=== PATIENT | female | born 1990 | race Caucasian/White ===

== ENCOUNTER 2022-09-04 15:49 | Outpatient (CLI) | payer OTHER, SELFPAY ==
[2022-09-04 21:45] LABS: Albumin* 4.6 g/dL (3.3-5.0); Chloride* 103 mmol/L (96-114)
[2022-09-04 21:46] LABS: Potassium* 3.9 mmol/L (3.6-5.1); Sodium* 140 mmol/L (135-149)
[2022-09-04 21:48] LABS: Creatinine* 0.7 mg/dL (0.5-1.5); Estimated Glomerular Filt Rate 117 ml/min
[2022-09-04 21:49] LABS: Alanine Aminotransferase* 31 U/L (4-35); Alkaline Phosphatase* 63 U/L (40-150); Aspartate Amino Transferase* 37 U/L (12-35); Blood Urea Nitrogen* 15 mg/dL (5-24); Calcium* 9.4 mg/dL (8.4-10.6); Carbon Dioxide* 28 mmol/L (20-32); Glucose* 90 mg/dL (60-115); Lipase* 119 U/L (23-300); Total Protein* 7.4 g/dL (6.0-8.3)
[2022-09-04 22:11] LABS: C Reactive Protein* < 0.5 mg/dL (0.5-1.0)
[2022-09-04 22:21] LABS: TSH With Reflex to FT4* 0.153 uIU/mL (0.270-4.200)
[2022-09-05 02:37] LABS: Free T4 Free Thyroxine* 1.63 ng/dL (0.70-1.85)
== END 2022-09-04 15:50 | disposition home or self-care (01) ==
PROVIDERS: PCP Physician Assistant Medical; Visit Provider Physician Assistant Medical
DX: K62.5 Hemorrhage of anus and rectum (principal); R10.9 Unspecified abdominal pain
CPT/HCPCS: 80053; 83516; 83690; 84439; 84443; 86140

== ENCOUNTER 2022-09-13 06:06 | Outpatient (CLI) | payer OTHER, SELFPAY | END 2022-09-13 06:07 | disposition home or self-care (01) | PROVIDERS: PCP Physician Assistant Medical; Visit Provider Internal Medicine | DX: R10.9 Unspecified abdominal pain (principal); K63.5 Polyp of colon; R13.10 Dysphagia, unspecified; R19.8 Other specified symptoms and signs involving the digestive system and abdomen | CPT/HCPCS: 43239; 45385; 88305; 88341; 88342; 99153; J2250; J3010 ==

== ENCOUNTER 2022-10-18 09:07 | Outpatient (CLI) | payer OTHER, SELFPAY ==
[2022-10-18 12:43] LABS: Albumin* 4.6 g/dL (3.3-5.0)
[2022-10-18 12:45] LABS: Cholesterol* 131 mg/dL (90-199)
[2022-10-18 12:46] LABS: Alanine Aminotransferase* 24 U/L (4-35); Alkaline Phosphatase* 63 U/L (40-150); Aspartate Amino Transferase* 33 U/L (12-35); Bilirubin Direct* 0.1 mg/dL (0.0-0.5); Bilirubin Total* 1.4 mg/dL (0.1-1.5); HDL Cholesterol* 54 mg/dL (>=50); LDL Cholesterol Calculated 57 mg/dL (<100); Total Protein* 7.1 g/dL (6.0-8.3); Triglycerides* 101 mg/dL (40-149)
[2022-10-18 13:13] LABS: Thyroid Stimulating Hormone* 0.067 uIU/mL (0.270-4.20)
[2022-10-21 08:48] LABS: MMA Vitamin B12 Status 0.13 umol/L (0.00-0.40)
[2022-10-22 20:43] LABS: Intrinsic Factor Blocking Ab Negative (Negative)
== END 2022-10-18 09:08 | disposition home or self-care (01) ==
PROVIDERS: PCP Physician Assistant Medical; Visit Provider Family Medicine
DX: E03.9 Hypothyroidism, unspecified (principal); K29.40 Chronic atrophic gastritis without bleeding
CPT/HCPCS: 80061; 80076; 82607; 84443; 86340

== ENCOUNTER 2023-01-21 13:59 | Outpatient (CLI) | payer OTHER, SELFPAY | END 2023-01-21 14:00 | disposition home or self-care (01) | LOC: NFLDREF 01-23 10:30 | PROVIDERS: PCP Physician Assistant Medical; Visit Provider Physician Assistant Medical | DX: E03.9 Hypothyroidism, unspecified (principal) | CPT/HCPCS: 84439; 84443; 84480; 84481; 84482; 86376; 86800 ==

== ENCOUNTER 2023-03-03 14:11 | Outpatient (REF) | payer OTHER, SELFPAY ==
[2023-03-03 14:38] LABS: Chloride* 105 mmol/L (96-114)
[2023-03-03 14:39] LABS: Albumin* 4.1 g/dL (3.3-5.0); Potassium* 4.4 mmol/L (3.6-5.1); Sodium* 138 mmol/L (135-149)
[2023-03-03 14:41] LABS: Cholesterol* 120 mg/dL (90-199); Creatinine* 0.8 mg/dL (0.5-1.5); Estimated Glomerular Filt Rate 99 ml/min
[2023-03-03 14:42] LABS: Alanine Aminotransferase* 25 U/L (4-35); Alkaline Phosphatase* 41 U/L (40-150); Aspartate Amino Transferase* 33 U/L (12-35); Bilirubin Direct* 0.3 mg/dL (0.0-0.5); Bilirubin Total* 1.6 mg/dL (0.1-1.5); Blood Urea Nitrogen* 9 mg/dL (5-24); Calcium* 8.9 mg/dL (8.4-10.6); Carbon Dioxide* 29 mmol/L (20-32); Glucose* 87 mg/dL (60-115); Total Protein* 6.5 g/dL (6.0-8.3); Triglycerides* 86 mg/dL (40-149)
[2023-03-03 14:43] LABS: HDL Cholesterol* 56 mg/dL (>=50); LDL Cholesterol Calculated 47 mg/dL (<100)
[2023-03-03 14:45] LABS: Hemoglobin A1C* 4.79 % (0-5.6)
[2023-03-03 15:51] LABS: Basophils Absolute Auto 0.02 K/uL (0.00-0.30); Basophils Percent Auto 0.4 % (0.0-3.0); Eosinophils Percent Auto 1.8 % (0.0-7.0); Hematocrit 39.3 % (33.0-51.0); Hemoglobin* 13.4 gm/dL (12.0-16.0); Immature Granulocytes Abs Auto 0.01 K/uL (0.00-0.30); Immature Granulocytes Pct Auto 0.2 %; Lymphocytes Absolute Auto 1.51 K/uL (0.90-2.90); Lymphocytes Percent Auto 26.9 % (20-44); Mean Corpuscular HGB Conc 34 gm/dL (32-36); Mean Corpuscular Hemoglobin 30 pg (26-34); Mean Corpuscular Volume 88 fL (80-100); Monocytes Percent Auto 8.7 % (0.0-11.0); Neutrophils Absolute Auto 3.49 K/uL (1.7-7.0); Platelet Count* 184 K/uL (140-440); RDW Coefficient of Variation % 13.1 % (11.5-15.5); Red Blood Count 4.45 m/uL (4.00-5.20); Slide Review Reflex No; White Blood Count* 5.62 K/uL (4.50-11.00)
== END 2023-03-03 14:12 | disposition home or self-care (01) ==
LOC: NPINS 14:11
PROVIDERS: PCP Physician Assistant Medical
DX: F90.2 Attention-deficit hyperactivity disorder, combined type (principal); F32.9 Major depressive disorder, single episode, unspecified; F15.20 Other stimulant dependence, uncomplicated
CPT/HCPCS: 80048; 80061; 80076; 83036; 85025

== ENCOUNTER 2023-07-11 12:37 | Outpatient (REF) | payer OTHER, SELFPAY ==
[2023-07-11 14:07] LABS: Free T4 Free Thyroxine* 0.82 ng/dL (0.70-1.85)
[2023-07-13 01:48] LABS: Free T3 2.3 pg/mL (2.5-4.3)
[2023-07-13 03:55] LABS: Thyroid Stimulating IgG (TSI) <0.10 IU/L (<=0.54)
== END 2023-07-11 12:38 | disposition home or self-care (01) ==
LOC: NPINS 12:37
PROVIDERS: PCP Physician Assistant Medical
DX: E07.9 Disorder of thyroid, unspecified (principal)
CPT/HCPCS: 84439; 84443; 84445; 84481

== ENCOUNTER 2024-09-10 10:53 | Outpatient (CLI) | payer OTHER, SELFPAY ==
--- OUTSIDE RECORDS SUMMARY | 2024-09-10 10:58 | XMS_ITS | Clinical Summary ---
Author Organization [facility] Address [address] [place] [address] Care Team Providers Care Machine Tool Technician Instructor Name Role Phone Jolie Mandel APRN, YAO Primary Care Provider U batshevaailable Source Comments You are receiving this document as you are listed as the primary care provider,follow-up provider, or the patient has been referred to you for consultation.This is in compliance with the Medicare andMedicaid EHR Incentive Program,which states Providers who transition their patient to another setting of careor provider of care or refers their patient to another provider of care shouldprovide summary care record for each transition of care or referral. [facility] No known active allergies Medications Medication Sig Dispensed Refills Start Date End Date Status levonorgestrel-ethin yl estrad (ALESSE) 0.1-20 MG-MCG tablet Take 1 Tab by mouth daily. Active polyethylene glycol 3350 (GLYCOLAX) powder Take 17 g by mouth daily as needed for Other (constipation). 850 g 3 11/05/2016 Active Additional Information Patient not taking.Reported on 03/12/2023 diphenhydrAMINE (BENADRYL) 25 MG tablet Take 25-50 mg by mouth at bedtime as needed for Sleep. Active traZODone (DESYREL) 50 MG tabletIndications:In somnia Take 50 mg by mouth at bedtime as needed for Sleep. Indications: Trouble Sleeping Active gabapentin (NEURONTIN) 300 MG capsule TAKE 2 CAPS BY MOUTH 4 TIMES A DAY. 720 Cap 06/26/2017 Active Additional Information Patient not taking.Reported on 05/21/2018 levothyroxine (SYNTHROID) 125 MCG tablet TAKE 1 TAB BY MOUTH DAILY. 90 Tab 3 07/22/2017 Active Additional Information Patient not taking.Reported on 03/12/2023 amphetamine-dextroam phetamine (ADDERALL XR) 20 MG 24 hour release capsuleIndications:S ore throat Take 20 mg by mouth daily. Active compounded MAGIC MOUTH WASH (MAGICMOUTHWASH) suspensionIndication s:Sore throat Take 5 mL by mouth two times a day. Gargle twice daily, AM and PM. Compd : Visc Lidocaine 30 ml,Maalox 30ml,Benadryl Elixir 30ml. 240 mL 05/21/2018 Active Additional Information Patient not taking.Reported on 03/12/2023 VRAYLAR 3 MG CAPS Take 1 Capsule by mouth daily. 02/19/2023 Active methylphenidate (RITALIN) 20 MG tablet Take 1 Tablet (20 mg) by mouth three times a day. 02/28/2023 Active liothyronine (CYTOMEL) 5 MCG tablet Take 1 Tablet (5 mcg) by mouth two times a day. 02/25/2023 Active TIROSINT 100 MCG Take 1 Tablet (100 mcg) by mouth daily. 02/28/2023 Active Active Problems Problem Noted Date Diagnosed Date Current every day nicotine vaping 10/18/2020 Insomnia, idiopathic 05/14/2020 Overview (03/12/2023): Uses trazadone Zinc deficiency 02/18/2020 Polysubstance abuse 12/25/2016 Overview (06/25/2017): Polysubstance abuse - adderall, alcohol, marijuana Slow transit constipation 11/05/2016 Moderate episode of recurrent major depressive d isorder 08/13/2016 Anxiety 08/13/2016 Other specified eating disorder 08/13/2016 Overview (06/25/2017): Other Specified Feeding and Eating Disorder - OSFED History of anorexia nervosa 08/13/2016 Overview (03/12/2023): corina 2016 after of second child. Doing well. 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 ADHD (attention deficit hyperactivity disorder) PTSD (post-traumatic stress disorder) Resolved Problems Problem Noted Date Diagnosed Date Resolved Date Nausea 02/19/2017 04/02/2017 Immunizations Name Administration Dates Next Due TDAP (ADACEL) 03/20/2012 Social History Tobacco Use Types Packs/Day Years Used Date Smoking Tobacco: Every Day Cigarettes Smokeless Tobacco: Never Alcohol Use Standard Drinks/Week Comments Yes 0 (1 standard drink = 0.6 oz pur e alcohol) Rarely since June Sex and Gender Information Value Date Recorded Sex Assigned at Not on file Gender Identity Not on file Sexual Orientation Not on file Last Filed Vital Signs Vital Sign Reading Time Taken Comments Blood Pressure 106/71 03/12/2023 9:39 AM CDT Pulse 80 03/12/2023 9:39 AM CDT Temperature 36.7 ??C (98 ??F) 03/12/2023 9:39 AM CDT Respiratory Rate 16 03/12/2023 9:39 AM CDT Oxygen Saturation 97% 03/12/2023 9:39 AM CDT Inhaled Oxygen Concentration - - Weight 53.1 kg (117 lb) 05/21/2018 6:12 PM CDT Height 162.6 cm (5' 4.02) 04/02/2017 3:43 PM CD T Body Mass Index 20.07 04/02/2017 3:43 PM CDT Plan of Treatment Health Maintenance Due Date Last Done Comments Cervical Cancer Screening Due 1989 Hep C Screening (Preventive Services) 1989 IPV (Polio) (4 of 4 - 5-dose series) 02/05/1994 08/07/1993, 08/07/1993, 09/21/1990, Additional history exists Pneumococcal (1 - PCV) 1995 HIV Screening (Preventive Services) 2005 Adult Preventive Visit 2007 HepB (1) 01/21/2008 COVID-19 Vaccine (3 - season) 2024 06/29/2021, 06/08/2021 Influenza (#1) 2024 09/29/2020, 08/03, 08/13/2012, Additional history exists DTaP/Tdap/Td (8 - Tdap) 03/21/2031 03/21/20 21, 12/14/2015, 12/14/2015, Additional history exists Zoster/Shingles (1 of 2) 2039 Hib Completed 08/07/1993, 03/1993, 09/21/1990 MCV4 Completed 06/26/2007 HPV Vaccine Completed 04/06/2008, 02/2008, 09/25/2007, Additional history exists HepA Aged Out No longer eligi ble based on patient's age to complete this topic Infant RSV Aged Out No longer eligi ble based on patient's age to complete this topic Advance Directives * Full Code (Latest Code Status on File) Date Activated Date Inactivated Comments 08/27/2016 2:29 PM 10/20/2016 2:07 PM * Full Code Date Activated Date Inactivated Comments 08/16/2016 10:35 AM 08/27/2016 2:29 PM Care Teams Machine Tool Technician Instructor Relationship Specialty Start Date End Date Jolie Mandel, PROFILE GRINDER, RESIDENTIAL COLLECTIONS PCP - General Nurse Practitioner 08/13/16
--- OUTSIDE RECORDS SUMMARY | 2024-09-10 10:58 | XMS_ITS | Clinical Summary ---
Author Organization [facility] Address [address] [place] [id number] Care Team Providers Care Starting Gate Driver Name Role Phone Unavailable Primary Care Provider Unavailabl e Allergies No known active allergies Medications levonorgestrel (MIRENA) 20 MCG/24HR IUDIndications:En counter for insertion of intrauterine contraceptive device 1 each (20 mcg) by Intrauterine route continuous 10/18/20 18 Active amphetamine-dextr oamphetamine (ADDERALL) 20 MG tablet 10/15/20 18 Active clonazePAM (KLONOPIN) 0.5 MG tablet TAKE 1/2-1 TABLET BY MOUTH DAILY NEEDED FOR ANXIETY/SLEEP 1 12/10/19 19 Active levothyroxine (SYNTHROID/LEVOTH ROID) 125 MCG tabletIndications :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 Provider to review CARDIOVASCULAR SCREENING; LDL GOAL LESS THAN 160 09/02/2010 Smoker 03/16/2009 ADHD (attention deficit hyperactivity disorder) 02/14/2009 Resolved Problems Problem Noted Date Diagnosed Date Resolved Date Polysubstance abuse 12/25/2016 10/18/20 18 History of anorexia nervosa 08/11/2016 12/14/2018 Encounter for triage in patient 01/14/2016 08/12/2016 Hypothyroidism affecting pre gnancy in second trimester 10/25/2015 08/12/2016 Chronic lymphocytic thyroiditis 07/19/2015 07/19/2015 Hypothyroidism affecting pre gnancy in first trimester 07/19/2015 10/25/2015 IUD (intrauterine device) in place 03/18/2013 08/12/2016 Overview (03/18/2013): 04/2012 Surveillance of previously p rescribed intrauterine contraceptive device 06/16/20122015 S/P section 03/26/2012 016 Encounter for supervision of other normal 09/03/2011 08/12/2016 Overview (09/04/2015): Diagnosis updated by automated process. Provider to review and confirm. Contraception 07/04/2011 08/12/2016 [facility] 06/18/2011 04/19/2024 Overview (02/08/2013): x DX V65.8 REPLACED WITH 62038 HEALTH DETENTION (02/08/2013) Anxiety attack 05/30/2011 09/12/2017 Moderate major depression 06/01/2010 Personal history of contrace ption, presenting hazards to health 06/27/2007 08/12/2016 Immunizations Name Administration Dates Next Due HIB (PRP-T) 09/21/1990 HPV 04/06/2008,09/25/2007,06/26/2007 HepB 01/27/2002,04/20/2001,03/18/2001 Historical DTP/aP 09/21/1990 Influenza (IIV3) PF 08/13/2012,09/03/2011,2009 MMR 03/18/2001,05/08/1990 Mantoux Tuberculin Skin Test 08/01/2009,07/11/20 09 Meningococcal ACWY (Menactra??) 06/26/2007 OPV, trivalent, live 08/07/1993,09/21/1990 TD,PF 7+ (Tenivac) 06/29/2003 TDAP Vaccine (Adacel) 03/20/2012 Tdap (Adult) Unspecified Formulation 12/14/2015 Tetramune (DtP/HIB) 08/07/1993 Family History Medical History Relation Comments Substance Abuse Brother 1 Bipolar Disorder Brother 2 Suicide Brother 2 Family History Negative Brother 5 4 Substance Abuse Brother 5 Family History Negative Father Cardiovascular Maternal Grandfather heart attac k and stroke Family History Negative Maternal Grandmother Depression Mother Family History Negative Mother with hea daches -seeing neuro for full for this Family History Negative Paternal Grandfather Family History Negative Paternal Grandmother Family History Negative Sister 1 Breast Cancer No family hx of Cancer - colorectal No family hx of Relation Status Comments Brother 1 Alive Brother 2 Brother 3 Alive Brother 4 Alive Brother 5 Daughter 1 Alive Daughter 2 Alive Father Alive Maternal Grandfather Maternal Grandmother Alive Mother Alive Paternal Grandfather Alive Paternal Grandmother Alive Sister Social History Tobacco Use Types Packs/Day Years Used Date Smoking Tobacco: Every Day Cigarettes 0.5 3 Started: 01/24/2013; Last attempted to quit: 01/25/2016 Smokeless Tobacco: Never Tobacco Cessation:Ready to Q uit: Yes Alcohol Use Standard Drinks/Week Comments No 0 (1 standard drink = 0.6 oz pur e alcohol) Stopped 2 months ago PHQ-2 Answer Date Recorded PHQ-2 Score 1 09/14/2018 Adolescent Education Answer Date Record ed Getting School Help Needed Not on file 08/10 Comments No Sex and Gender Information Value Date Recorded Sex Assigned at Not on file Legal Sex Female 4:05 AM CHANGE MANAGEMENT DIRECTOR Gender Identity Not on file Sexual Orientation Not on file Last Filed Vital Signs Vital Sign Reading Time Taken Comments Blood Pressure 108/74 08/03/2019 11:27 AM CDT Pulse 89 08/03/2019 11:27 AM CDT Temperature 36.6 ??C (97.9 ??F) 08/03/2019 11:27 AM C DT Respiratory Rate 16 08/03/2019 11:27 AM CDT Oxygen Saturation 98% 08/03/2019 11:27 AM CDT Inhaled Oxygen Concentration - - Weight 52.7 kg (116 lb 3.2 oz) 08/03/2019 11:27 AM CDT Height 160 cm (5' 3) 12/14/2018 9:28 AM CHANGE MANAGEMENT DIRECTOR Body Mass Index 20.58 12/14/2018 9:28 AM CHANGE MANAGEMENT DIRECTOR Plan of Treatment Health Maintenance Due Date Last Done Comments ADVANCE CARE PLANNING 1989 Pneumococcal Vaccine: Pediatrics (0 to 5 Years) and At-Risk Patients (6 to 64 Years) (1 of 2 - PCV) 1995 YEARLY PREVENTIVE VISIT 09/14/2019 09/14/20 18, 08/07/2016, 06/05/2011, Additional history exists PHQ-9 02/02/2020 08/03/2019, 12/04, 09/14/2018, Additional history exists ANNUAL REVIEW OF HM ORDERS 08/03/2020 08/03/2019 TSH W/FREE T4 REFLEX 08/03/2020 08/03/2019, 08/03/2019, 12/14/2018, Additional history exists PAP 09/14/2021 09/14/2018, 05/0 11/2015, 03/18/2013, Additional history exists GLUCOSE 08/03/2022 08/03/2019, 05/04, 08/07/2016, Additional history exists COVID-19 Vaccine ( season) 2024 06/29/2021, 06/08/2021 INFLUENZA VACCINE (#1) 2024 0, 09/14/2018 (Declined), 08/13/2012, Additional history exists DTAP/TDAP/TD IMMUNIZATION (7 - Td or Tdap) 03/21/2031 03/21/2021, 12/14/2015, 12/14/2015, Additional history exists RSV VACCINE (1 - 1-dose 75+ series) 01/21/2064 HEPATITIS B IMMUNIZATION Completed 002, 01/27/2002, 01/27/2002, Additional history exists MENINGITIS IMMUNIZATION Completed 06/26/2007 HPV IMMUNIZATION Completed 04/06/2008, , 06/26/2007 HEPATITIS C SCREENING Completed 03/18/2013 HIV SCREENING Completed 07/11/2015, 03/03, 10/08/2012, Additional history exists DEPRESSION ACTION PLAN Completed 8, 09/12/2017, 08/07/2016, Additional history exists RSV MONOCLONAL ANTIBODY Aged Out No l onger eligible based on patient's age to complete this topic Procedures Procedure Name Priority Date/Time Associated Diagnosis Comments COMPREHENSIVE METABOLIC PANEL Routine 08/03/2019 10:16 AM CDT Other fatigue TSH Routine 08/03/2019 10:16 AM CDT 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 Blood specimen (specimen) 08/03/2019 10:16 AM CDT 08/03/2019 10:18 AM CDT Jolie Mandel [facility] F[facility] SPECIALIST LAB - BLOOD ORDERAB LES Final Result [facility] [address] [place], [place] [address] * (ABNORMAL) Comprehensive metabolic panel (08/03/2019 10:16 AM CDT) Sodium 136 133 - 144 mmol/L 08/04/2019 9:[address] [facility] Potassium 4.0 3.4 - 5.3 mmol/L 08/04/2019 9:[address] [facility] Chloride 102 94 - 109 mmol/L 08/04/2019 9:[address] [facility] Carbon Dioxide 26 20 - 32 mmol/L 08/04/2019 9:43 AM [facility] Anion Gap 8 3 - 14 mmol/L 08/04/2019 9:43 AM [facility] Glucose 77 70 - 99 mg/dL 08/04/2019 9:43 AM [facility] Urea Nitrogen 17 7 - 30 mg/dL 08/04/2019 9:43 AM [facility] Creatinine 0.82 0.52 - 1.04 mg/dL 08/04/2019 9:43 AM [facility] GFR Estimate >90 >60 mL/min/{1 .73_m2} 08/04/2019 9:43 AM [facility] Comment: Non GFR Calc Starting 10/20/2018, serum creatinine based estimated GFR (eGFR) will be calculated using the Chronic Kidney Disease Epidemiology Collaboration (CKD-EPI) equation. GFR Estimate If Black >90 >60 mL/min/{1 .73_m2} 08/04/2019 9:43 AM [facility] Comment: GFR Calc Starting 10/20/2018, serum creatinine based estimated GFR (eGFR) will be calculated using the Chronic Kidney Disease Epidemiology Collaboration (CKD-EPI) equation. Calcium 9.0 8.5 - 10.1 mg/dL 08/04/2019 9:43 AM [facility] Bilirubin Total 1.4(H) 0.2 - 1.3 mg/dL 08/04/2019 9:50 AM [facility] Albumin 4.7 3.4 - 5.0 g/dL 08/04/2019 9:50 AM [facility] Protein Total 8.0 6.8 - 8.8 g/dL 08/04/2019 9:50 AM [facility] Alkaline Phosphatase 61 40 - 150 U/L 08/04/2019 9:50 AM [facility] ALT 23 0 - 50 U/L 08/04/2019 9:50 AM [facility] AST 20 0 - 45 U/L 08/04/2019 9:50 AM [facility] Blood specimen (specimen) 08/03/2019 10:16 AM CDT 08/03/2019 10:18 AM CDT Jolie Mandel [facility] [facility] - BLOOD ORDERAB LES Final Result [facility] [address] [place] [address], [facility] [phone] [facility] [address] [place] [address] * Pap imaged thin layer screen reflex to HPV if ASCUS - recommend age 25 - 29 (09/14/2018 9:39 AM CHANGE MANAGEMENT DIRECTOR) PAP MP Issa Report Patient Name: CADENCE MCLAUGHLIN MR#: [id number] Specimen #: [id number] Collected: 09/14/2018 Received: 09/15/2018 Reported: 09/17/2018 10:01 Ordering Phy(s): JOLIE MANDEL For improved result formatting, select 'View Enhanced Report Format' under Linked Documents section. SPECIMEN/STAIN PROCESS: Pap imaged thin layer prep screening (Surepath, FocalPoint with guided screening) ? Pap-Cyto x 1, Pap with reflex to HPV if ASCUS x 1 SOURCE: Cervical, endocervical Pap imaged thin layer prep screening (Surepath, FocalPoint with guided screening) SPECIMEN ADEQUACY: Satisfactory for evaluation. -Transformation zone component present. CYTOLOGIC INTERPRETATION: Negative for intraepithelial lesion or malignancy Electronically signed out by: MIGDALIA Rodríguez (ASCP) Processed and screened at [facility] CLINICAL HISTORY: LMP: 09/13/18 A previous normal pap Date of Last Pap: 03/03/16, Papanicolaou Test Limitations: ??Cervical cytology is a screening test with limited sensitivity; regular screening is critical for cancer prevention; Pap tests are primarily effective for the diagnosis/preventi on of squamous cell carcinoma, not adenocarcinomas or other cancers. TESTING LAB LOCATION: [facility] [address] [place], [place] ??[address] COLLECTION SITE: Client: ??[facility] Location: [facility] (R) [facility] Cytologic material (specimen) 09/14/2018 9:39 AM CHANGE MANAGEMENT DIRECTOR 09/15/2018 10:23 AM CHANGE MANAGEMENT DIRECTOR us Jolie Mandel APRN FARM SPECIALIST LAB - [facility] AL SPECIMEN Final Result [facility] * HIV Antigen Antibody Combo (07/11/2015) HIV Antigen Antibody Combo negative Blood specimen (specimen) us Patient Reported LAB - BLOOD ORDERABLES Final Re sult * Hepatitis C antibody (03/18/2013 2:43 PM CDT) Hepatitis C Antibody Negative [facility] Blood specimen (specimen) 03/18/2013 2:43 PM CDT 03/18/2013 2:44 PM CDT us Soniya Queen MD LAB - BLOOD ORDERABLES Final Res ult [facility] [address] [place] [address] from Last 3 Months or Most Recently Relevant to Health Maintenance Insurance [employer]
--- OUTSIDE RECORDS SUMMARY | 2024-09-10 10:59 | XMS_ITS | Encounter Summary ---
Author Organization [facility] Address [address] [place] [address] Care Team Providers Care Certified Surgical Assistant Name Role Phone Jolie Mandel APRN, CNP Primary Care Provi leon Unavailable Jolie Mandel APRN, CNP Unavailable Un available TequilaJolie hernández APRN, CNP Unavailable Un available Encounter Details Date Type Department Care Team (Late st Contact Info) Description 10/12/2012 [facility] [address] [phone] Soniya Queen MD [address] [place] [address] Social History Tobacco Use Types Packs/Day Years Used Date Smoking Tobacco: Smoker, Current Status Unknown Cigarettes 1 3 Started: 08/03/2008; Last attempted to quit: 08/03/2011 Smokeless Tobacco: Never Alcohol Use Standard Drinks/Week Comments No 0 (1 standard drink = 0.6 oz pur e alcohol) Comments No Sex and Gender Information Value Date Recorded Sex Assigned at Not on file Legal Sex Female 4:05 AM HOIST OPERATOR Gender Identity Not on file Sexual Orientation Not on file documented as of this encounter Plan of Treatment Not on file documented as of this encounter Visit Diagnoses Not on filedocumented in this encounter Care Teams Certified Surgical Assistant Relationship Specialty Start Date End Date Jolie Mandel APRN CNP PCP - General Nurse Practitioner 02/27/17 10/09/23 Jolie Mandel APRN JAVA LEAD ARCHITECT PCP - Assigned PCP 08/18/16 01/05/19 Jolie Mandel APRN JAVA LEAD ARCHITECT Assigned PCP 08/18/16 05/31/22 documented as of this encounter
--- OUTSIDE RECORDS SUMMARY | 2024-09-10 10:59 | XMS_ITS | Encounter Summary ---
Author Organization [facility] Address [address] [place] [address]. [place] [address] Care Team Providers Care Job Captain Name Role Phone Jolie Mandel APRN, CNP Primary Care Provi leon Unavailable Jolie Mandel APRN, CNP Unavailable Un available Jolie Mandle APRN, CNP Unavailable Un available Encounter Details Date Type Department Care Team (Late st Contact Info) Description 04/05/2016 [facility] [address] [phone] Dolly Tsang APRN [address] [id number] Social History Tobacco Use Types Packs/Day Years Used Date Smoking Tobacco: Every Day Cigarettes 0.3 3 Started: 01/24/2013; Last attempted to quit: 01/25/2016 Smokeless Tobacco: Never Comments:stopped 06/10/2015 Alcohol Use Standard Drinks/Week Comments No 0 (1 standard drink = 0.6 oz pur e alcohol) Comments No Sex and Gender Information Value Date Recorded Sex Assigned at Not on file Legal Sex Female 4:05 AM LANDSCAPE AND YARDWORK LABORER Gender Identity Not on file Sexual Orientation Not on file documented as of this encounter Plan of Treatment Not on file documented as of this encounter Visit Diagnoses Not on filedocumented in this encounter Care Teams Job Captain Relationship Specialty Start Date End Date Jolie Mandel APRN CNP PCP - General Nurse Practitioner 02/27/17 10/09/23 Jolie Mandel APRN SERVICE OBSERVER CHIEF PCP - Assigned PCP 08/18/16 01/05/19 Jolie Mandel APRN SERVICE OBSERVER CHIEF Assigned PCP 08/18/16 05/31/22 documented as of this encounter
--- OUTSIDE RECORDS SUMMARY | 2024-09-10 10:59 | XMS_ITS | Encounter Summary ---
Author Organization [facility] Address [address] [place] [address] Care Team Providers Care Rn Postpartum Name Role Phone Jolie Mandel APRN, CNP Primary Care Provi leon Unavailable Jolie Mandel APRN, CNP Unavailable Un available Jolie Mandel APRN, CNP Unavailable Un available Encounter Details Date Type Department Care Team (Late st Contact Info) Description 03/03/2017 [facility] [place] [address] [phone] Edwina Stephenson, ATHLETE MANAGER Social History Tobacco Use Types Packs/Day Years Used Date Smoking Tobacco: Every Day Cigarettes Last attempted to quit: 01/24/2013 Other Smokeless Tobacco: Never Comments:e-cig Alcohol Use Standard Drinks/Week Comments No 0 (1 standard drink = 0.6 oz pur e alcohol) Comments No Sex and Gender Information Value Date Recorded Sex Assigned at Not on file Legal Sex Female 4:05 AM CAM MAKER Gender Identity Not on file Sexual Orientation Not on file documented as of this encounter Plan of Treatment Not on file documented as of this encounter Visit Diagnoses Not on filedocumented in this encounter Additional Health Concerns Assessment Noted Time PHQ-9 Depression Total Score: 21 016 7:22 AM CDT documented as of this encounter Care Teams Rn Postpartum Relationship Specialty Start Date End Date Jolie Mandel APRN CNP PCP - General Nurse Practitioner 02/27/17 10/09/23 oJlie Mandel APRN ENGRAVING PRESS OPERATOR PCP - Assigned PCP 08/18/16 01/05/19 Jolie Mandel APRN ENGRAVING PRESS OPERATOR Assigned PCP 08/18/16 05/31/22 documented as of this encounter
--- OUTSIDE RECORDS SUMMARY | 2024-09-10 10:59 | XMS_ITS | Encounter Summary ---
Author Organization [facility] Address [address] [place] [address] Care Team Providers Care Truck Driver Heavy Name Role Phone Jolie Mandel APRN, CNP Primary Care Provi leon Unavailable Tequila, Jolie Foley APRN MACHINE SPREADER Unavailable Un available Tequila, Jolie Foley APRN MACHINE SPREADER Unavailable Un available Reason for Visit * Reason Onset Date Comments MyChart Communication 05/11/2014 Encounter Details Date Type Department Care Team (Latest Contact Info) Description 05/11/[address] [facility] [id number] [place] [phone] Ida Davila PA-C [id number] [place] [address] MyChart Communication Social History Tobacco Use Types Packs/Day Years Used Date Smoking Tobacco: Every Day Cigarettes 0.5 3 Started: 08/03/2008; Last attempted to quit: 08/03/2011 Smokeless Tobacco: Never Alcohol Use Standard Drinks/Week Comments No 0 (1 standard drink = 0.6 oz pur e alcohol) Comments No Sex and Gender Information Value Date Recorded Sex Assigned at Not on file Legal Sex Female 4:05 AM DAIRY BACTERIOLOGIST Gender Identity Not on file Sexual Orientation Not on file documented as of this encounter Plan of Treatment Not on file documented as of this encounter Visit Diagnoses Not on filedocumented in this encounter Care Teams Truck Driver Heavy Relationship Specialty Start Date End Date Jolie Mandel APRN CNP PCP - General Nurse Practitioner 02/27/17 10/09/23 Jolie Mandel APRN MACHINE SPREADER PCP - Assigned PCP 08/18/16 01/05/19 Jolie Mandel APRN MACHINE SPREADER Assigned PCP 08/18/16 05/31/22 documented as of this encounter
--- OUTSIDE RECORDS SUMMARY | 2024-09-10 10:59 | XMS_ITS | Encounter Summary ---
Author Organization [place] Address [address] [place] [address] Care Team Providers Care Broadcast Operations Technician Name Role Phone Tequila, Jolie Foley APRN PRINTING SHOP SUPERVISOR Primary Care Provi leon Unavailable Tequila, Jolie Foley APRN PRINTING SHOP SUPERVISOR Unavailable Un available Tequila, Jolie Foley APRN PRINTING SHOP SUPERVISOR Unavailable Un available Reason for Visit * Reason Onset Date Comments Refill Request 09/23/2014 amphetamine-dext roamphetamine (ADDERALL) 10 MG tablet Encounter Details Date Type Department Care Team (Late st Contact Info) Description 09/23/2014 MyC Refill [facility] [id number] [place] [id number] Ida Davila PA-C [id number] [place] [address] Refill Request (amphetamine-dextroamp hetam... Social History Tobacco Use Types Packs/Day Years Used Date Smoking Tobacco: Every Day Cigarettes 0.5 3 Started: 08/03/2008; Last attempted to quit: 08/03/2011 Smokeless Tobacco: Never Alcohol Use Standard Drinks/Week Comments No 0 (1 standard drink = 0.6 oz pur e alcohol) Comments No Sex and Gender Information Value Date Recorded Sex Assigned at Not on file Legal Sex Female 4:05 AM TOOL MAKER APPRENTICE Gender Identity Not on file Sexual Orientation Not on file documented as of this encounter Miscellaneous Notes * Telephone Encounter - Karla Tang CMA - 09/23/2014 2:56 PM TOOL MAKER APPRENTICE Lm that rx is ready for pickup Karla Tang CMA MAKER APPRENTICE * Telephone Encounter - Ida Davila PA-C - 09/23/2014 2:17 PM CST prescription approved, please let patient know this medication has been refilled. MAKER APPRENTICE * Telephone Encounter - Reny Gipson - 09/23/2014 10:48 AM [facility] Original authorizing provider: Ida Davila PA-C, RYAN Luis would like a refill of the following medications: amphetamine-dextroamphetamine (ADDERALL) 10 MG tablet [Ida Mitchell PA-C, PA-C] Preferred pharmacy: [facility] [address] [place] [address] [address] Comment: Please renew- last renewal was on 08/22/14. I have my official apt with Dr Moncada in 3 weeks (The psych testing results are being prepared right now and I have a follow up with him in 3 weeks) [facility] [place] and . thanks! MAKER APPRENTICE documented in this encounter Plan of Treatment Not on file documented as of this encounter Visit Diagnoses Diagnosis ADHD (attention deficit hyperactivity disorder) Attention deficit disorder with hyperactivity documented in this encounter Care Teams Broadcast Operations Technician Relationship Specialty Start Date End Date Jolie Mandel APRN CNP PCP - General Nurse Practitioner 02/27/17 10/09/23 Jolie Mandel APRN PRINTING SHOP SUPERVISOR PCP - Assigned PCP 08/18/16 01/05/19 Jolie Mandel APRN CNP Assigned PCP 08/18/16 05/31/22 documented as of this encounter
--- OUTSIDE RECORDS SUMMARY | 2024-09-10 10:59 | XMS_ITS | Encounter Summary ---
Author Organization [place] Address [address] [place] [address] Care Team Providers Care Tube Blower Name Role Phone Jolie Mandel APRN, CNP Primary Care Provi leon Unavailable Jolie Mandel APRN, CNP Unavailable Un available Jolie Mandel APRN, CNP Unavailable Un available Encounter Details Date Type Department Care Team (Late st Contact Info) Description 12/25/2011 [facility] Medical Advice [address] [phone] Soniya Queen MD [address] [place] [id number] Social History Tobacco Use Types Packs/Day Years Used Date Smoking Tobacco: Former Cigarettes Smokeless Tobacco: Never Alcohol Use Standard Drinks/Week Comments No 0 (1 standard drink = 0.6 oz pur e alcohol) Comments Yes Sex and Gender Information Value Date Recorded Sex Assigned at Not on file Legal Sex Female 4:05 AM DIRECTOR OF PATIENT SAFETY Gender Identity Not on file Sexual Orientation Not on file documented as of this encounter Plan of Treatment Not on file documented as of this encounter Visit Diagnoses Not on filedocumented in this encounter Care Teams Tube Blower Relationship Specialty Start Date End Date Jolie Mandel APRN CNP PCP - General Nurse Practitioner 02/27/17 10/09/23 Jolie Mandel APRN CNP PCP - Assigned PCP 08/18/16 01/05/19 Jolie Mandel APRN LEATHER DRIER Assigned PCP 08/18/16 05/31/22 documented as of this encounter
--- OUTSIDE RECORDS SUMMARY | 2024-09-10 10:59 | XMS_ITS | Encounter Summary ---
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
--- OUTSIDE RECORDS SUMMARY | 2024-09-10 10:59 | XMS_ITS | Encounter Summary ---
Author Organization [place] Address [address] [place] [address] Care Team Providers Care Hospital Social Worker Name Role Phone Jolie Mandel APRN, CNP Primary Care Provi leon Unavailable Jolie Mandel APRN, CNP Unavailable Un available TequilaJolie hernández APRN, CNP Unavailable Un available Reason for Visit * Reason Onset Date Comments MyChart Communication 10/12/2012 Encounter Details Date Type Department Care Team (Latest Contact Info) Description 10/12/2012 [facility] [address] [phone] Soniya Queen MD [address] [place] [address] [id number] MyChart Communication Social History Tobacco Use Types [...] on file Legal Sex Female 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
--- OUTSIDE RECORDS SUMMARY | 2024-09-10 10:59 | XMS_ITS | Encounter Summary ---
Author Organization [place] Address [address] [place] [address] Care Team Providers Care Alpine Patroller Name Role Phone Jolie Mandle APRN, CNP Primary Care Provi leon Unavailable Jolie Mandel APRN, CNP Unavailable Un available Jolie Mandel APRN, CNP Unavailable Un available Encounter Details Date Type Department Care Team (Late st Contact Info) Description 12/08/2014 My[facility] Medical Advice [address] [phone] Karla Tang, [facility] Social History Tobacco Use Types Packs/Day Years Used Date Smoking Tobacco: Every Day Cigarettes 0.5 3 Started: 08/03/2008; Last attempted to quit: 08/03/2011 Smokeless Tobacco: Never Alcohol Use Standard Drinks/Week Comments No 0 (1 standard drink = 0.6 oz pur e alcohol) Comments No Sex and Gender Information Value Date Recorded Sex Assigned at Not on file Legal Sex Female 4:05 AM LEAD TELLER Gender Identity Not on file Sexual Orientation Not on file documented as of this encounter Plan of Treatment Not on file documented as of this encounter Visit Diagnoses Not on filedocumented in this encounter Care Teams Alpine Patroller Relationship Specialty Start Date End Date Jolie Mandel APRN CNP PCP - General Nurse Practitioner 02/27/17 10/09/23 Jolie Mandel APRN CNP PCP - Assigned PCP 08/18/16 01/05/19 Jolie Mandel APRN APPLICATION DEVELOPER Assigned PCP 08/18/16 05/31/22 documented as of this encounter
--- OUTSIDE RECORDS SUMMARY | 2024-09-10 10:59 | XMS_ITS | Encounter Summary ---
Author Organization [place] Address [address] [place] [address] Care Team Providers Care Computer Systems Administrator Name Role Phone Jolie Mandel APRN, CNP Primary Care Provi leon Unavailable Jolie Mandel APRN, CNP Unavailable Un available Jolie Mandel APRN, CNP Unavailable Un available Encounter Details Date Type Department Care Team (Late st Contact Info) Description 07/28/2011 [facility] Medical Advice [address] [phone] Soniay Queen MD [address] [place] [id number] Social History Tobacco Use Types Packs/Day Years Used Date Smoking Tobacco: Every Day Cigarettes Smokeless Tobacco: Never Comments:trying to quit, 3-4 cigarettes per day Alcohol Use Standard Drinks/Week Comments Yes 0 (1 standard drink = 0.6 oz pure alcohol) 1-2 drinks 1 day per week, denies any abuse-06/05/11-RW Comments No Sex and Gender Information Value Date Recorded Sex Assigned at Not on file Legal Sex Female 4:05 AM PRODUCT ACCOUNTANT Gender Identity Not on file Sexual Orientation Not on file documented as of this encounter Plan of Treatment Not on file documented as of this encounter Visit Diagnoses Not on filedocumented in this encounter Care Teams Computer Systems Administrator Relationship Specialty Start Date End Date Jolie Mandel APRN CNP PCP - General Nurse Practitioner 02/27/17 10/09/23 Jolie Mandel APRN MANAGER LATIN PCP - Assigned PCP 08/18/16 01/05/19 Jolie Mandel APRN MANAGER LATIN Assigned PCP 08/18/16 05/31/22 documented as of this encounter
--- OUTSIDE RECORDS SUMMARY | 2024-09-10 10:59 | XMS_ITS | Encounter Summary ---
Author Organization [place] Address [address] [place] [address] Care Team Providers Care Face Hardener Name Role Phone Jolie Mandel APRN, CNP Primary Care Provi leon Unavailable Jolie Mandel APRN, CNP Unavailable Un available TequilaJolie hernández APRN, CNP Unavailable Un available Encounter Details Date Type Department Care Team (Late st Contact Info) Description 09/22/2015 My[facility] Medical Advice [address] [address] Dolly Tsang APRN GRAIN SAMPLER [address] [place], [place] [id number] Social History Tobacco Use Types Packs/Day Years Used Date Smoking Tobacco: Former Cigarettes 0.5 3 0 06/07/2012 - 06/07/2015 Smokeless Tobacco: Never Comments:stopped 06/10/2015 Alcohol Use Standard Drinks/Week Comments No 0 (1 standard drink = 0.6 oz pur e alcohol) Comments Yes Sex and Gender Information Value Date Recorded Sex Assigned at Not on file Legal Sex Female 4:05 AM STAFF ANALYST Gender Identity Not on file Sexual Orientation Not on file documented as of this encounter Plan of Treatment Not on file documented as of this encounter Visit Diagnoses Not on filedocumented in this encounter Care Teams Face Hardener Relationship Specialty Start Date End Date Jolie Mandel APRN CNP PCP - General Nurse Practitioner 02/27/17 10/09/23 Jolie Mandel APRN GRAIN SAMPLER PCP - Assigned PCP 08/18/16 01/05/19 Jolie Mandel APRN GRAIN SAMPLER Assigned PCP 08/18/16 05/31/22 documented as of this encounter
--- OUTSIDE RECORDS SUMMARY | 2024-09-10 10:59 | XMS_ITS | Encounter Summary ---
Author Organization [place] Address [address] [place] [address] Care Team Providers Care Computer Operations Technician Name Role Phone Jolie Mandel APRN, CNP Primary Care Provi leon Unavailable Jolie Mandel APRN, CNP Unavailable Un available Jolie Mandel APRN, CNP Unavailable Un available Reason for Visit * Reason Onset Date Comments MyChart Communication 10/31/2016 uti Encounter Details Date Type Department Care Team (Latest Contact Info) Description 10/31/2016 [facility] Medical Advice [address] [address] Jolie Mandel APRN CNP MyChart Communication (uti) Social History Tobacco Use Types Packs/Day Years Used Date Smoking Tobacco: Every Day Cigarettes 1 3 Started: 01/24/2013; Last attempted to quit: 01/25/2016 Smokeless Tobacco: Never Comments:stopped 06/10/2015 Alcohol Use Standard Drinks/Week Comments No 0 (1 standard drink = 0.6 oz pur e alcohol) Comments No Sex and Gender Information Value Date Recorded Sex Assigned at Not on file Legal Sex Female 4:05 AM HOUSEKEEPING ATTENDANT Gender Identity Not on file Sexual Orientation Not on file documented as of this encounter Miscellaneous Notes * Telephone Encounter - Cari Watt RN - 10/31/2016 3:44 PM CST Sent [employer] response, see below Cari Watt RN, BSN Message handled by Nurse Triage. EKEEPING ATTENDANT documented in this encounter Plan of Treatment Not on file documented as of this encounter Visit Diagnoses Not on filedocumented in this encounter Additional Health Concerns Assessment Noted Time PHQ-9 Depression Total Score: 21 016 7:22 AM CDT documented as of this encounter Care Teams Computer Operations Technician Relationship Specialty Start Date End Date Jolie Mandel APRN CNP PCP - General Nurse Practitioner 02/27/17 10/09/23 Jolie Mandel APRN CNP PCP - Assigned PCP 08/18/16 01/05/19 Jolie Mandel APRN CNP Assigned PCP 08/18/16 05/31/22 documented as of this encounter
--- OUTSIDE RECORDS SUMMARY | 2024-09-10 10:59 | XMS_ITS | Encounter Summary ---
Author Organization [place] Address [address] [place] [address] Care Team Providers Care Ict Business Analyst Name Role Phone Tequila, Jolie Foley APRN HAND BANDER Primary Care Provi leon Unavailable Tequila, Jolie Foley APRN HAND BANDER Unavailable Un available Tequila, Jolie Foley APRN HAND BANDER Unavailable Un available Reason for Visit * Reason Onset Date Comments Results 06/01/2011 Lab Results Encounter Details Date Type Department Care Team (Late st Contact Info) Description 06/01/[address] [phone] Soniya Queen MD [address] [place] [address] [phone] Results (Lab Results ) Social History Tobacco Use Types Packs/Day Years Used Date Smoking Tobacco: Every Day Cigarettes Smokeless Tobacco: Never Comments:trying to quit, 3-4 cigarettes per day Alcohol Use Standard Drinks/Week Comments Yes 0 (1 standard drink = 0.6 oz pur e alcohol) Comments No Sex and Gender Information Value Date Recorded Sex Assigned at Not on file Legal Sex Female 4:05 AM STATIONARY ENGINEER APPRENTICE Gender Identity Not on file Sexual Orientation Not on file documented as of this encounter Miscellaneous Notes * Telephone Encounter - Letitia Cason - 06/04/2011 10:05 AM CDT LVM @ [phone] for pt to call back. Test results are negative but what was the test for? Irregular bleeding? Missed cycle? Date of last period? Need to be sure pt did not test too soon. Letitia Cason RN. * Telephone Encounter - Topher Princea - 06/01/2011 12:07 PM CDT The patient would like to know if the test results are in and if they are would like a call back with the results. Please call to discuss. Thank you. documented in this encounter Plan of Treatment Not on file documented as of this encounter Visit Diagnoses Not on filedocumented in this encounter Care Teams Ict Business Analyst Relationship Specialty Start Date End Date Jolie Mandel APRN CNP PCP - General Nurse Practitioner 02/27/17 10/09/23 Jolie Mandel APRN HAND BANDER PCP - Assigned PCP 08/18/16 01/05/19 Jolie Mandel APRN CNP Assigned PCP 08/18/16 05/31/22 documented as of this encounter
--- OUTSIDE RECORDS SUMMARY | 2024-09-10 10:59 | XMS_ITS | Encounter Summary ---
Author Organization [place] Address [address] [place] [address] Care Team Providers Care Inspector Casing Name Role Phone Jolie Mandel APRN, CNP Primary Care Provi leon Unavailable Jolie Mandel APRN, CNP Unavailable Un available Jolie Mandel APRN, CNP Unavailable Un available Encounter Details Date Type Department Care Team (Late st Contact Info) Description 01/08/2013 My[facility] Medical Advice [address] [phone] Soniya Queen MD [address] [place] [address] Social History Tobacco Use Types Packs/Day Years Used Date Smoking Tobacco: Every Day Cigarettes 1 3 Started: 08/03/2008; Last attempted to quit: 08/03/2011 Smokeless Tobacco: Never Alcohol Use Standard Drinks/Week Comments No 0 (1 standard drink = 0.6 oz pur e alcohol) Comments No Sex and Gender Information Value Date Recorded Sex Assigned at Not on file 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
--- OUTSIDE RECORDS SUMMARY | 2024-09-10 10:59 | XMS_ITS | Encounter Summary ---
Author Organization [place] Address [address] [place] [address] Care Team Providers Care Stock Puller Name Role Phone Jolie Mandel APRN, CNP Primary Care Provi leon Unavailable Jolie Mandel APRN, CNP Unavailable Un available Jolie Mandel APRN, CNP Unavailable Un available Encounter Details Date Type Department Care Team (Late st Contact Info) Description 06/10/2011 [facility] Medical Advice [address] [phone] Soniya Queen MD [address] [place] [address] Social History Tobacco Use Types Packs/Day Years [...] on file Legal Sex Female 4:05 AM SOFTWARE DEVELOPMENT TEST ENGINEER Gender Identity Not on file Sexual Orientation Not on file documented as of this encounter Plan of Treatment Not on file documented as of this encounter Visit Diagnoses Not on filedocumented in this encounter Care Teams Stock Puller Relationship Specialty Start Date End Date Jolie Mandel APRN CNP PCP - General Nurse Practitioner 02/27/17 10/09/23 Jolie Mandel APRN QUARTZ MOUNTER PCP - Assigned PCP 08/18/16 01/05/19 Jolie Mandel APRN QUARTZ MOUNTER Assigned PCP 08/18/16 05/31/22 documented as of this encounter
--- OUTSIDE RECORDS SUMMARY | 2024-09-10 10:59 | XMS_ITS | Encounter Summary ---
Author Organization [place] Address [address] [place] [address] Care Team Providers Care Mounter Saxophones Name Role Phone Jolie Mandel APRN, CNP Primary Care Provi leon Unavailable Jolie Mandel APRN, CNP Unavailable Un available Jolie Mandel APRN, CNP Unavailable Un available Encounter Details Date Type Department Care Team (Late st Contact Info) Description 02/08/2013 [facility] Medical [address] [address] [facility] Social History Tobacco Use Types Packs/Day Years Used Date Smoking Tobacco: Every Day Cigarettes 1 3 Started: 08/03/2008; Last attempted to quit: 08/03/2011 Smokeless Tobacco: Never Alcohol Use Standard Drinks/Week Comments No 0 (1 standard drink = 0.6 oz pur e alcohol) Comments No Sex and Gender Information Value Date Recorded Sex Assigned at Not on file Legal Sex Female 4:05 AM WAITER/WAITRESS HEAD Gender Identity Not on file Sexual Orientation Not on file documented as of this encounter Plan of Treatment Not on file documented as of this encounter Visit Diagnoses Not on filedocumented in this encounter Care Teams Mounter Saxophones Relationship Specialty Start Date End Date Jolie Mandel APRN CNP PCP - General Nurse Practitioner 02/27/17 10/09/23 Jolie Mandel APRN CNP PCP - Assigned PCP 08/18/16 01/05/19 Jolie Mandel APRN LABORATORY EQUIPMENT INSTALLER Assigned PCP 08/18/16 05/31/22 documented as of this encounter
--- OUTSIDE RECORDS SUMMARY | 2024-09-10 10:59 | XMS_ITS | Referral Summary ---
Author Organization [facility] Address [address] [place] [address] Care Team Providers Care Auto Body Man Name Role Phone Unavailable Primary Care Provider [...] review and confirm. 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 Gender Identity Not on file Sexual Orientation [...] 160 cm (5' 3) 12/14/2018 9:28 AM DIAL BUFFER Body Mass Index 20.58 12/14/2018 9:28 AM DIAL BUFFER Plan of Treatment Not on file Procedures Procedure Name Priority Date/Time Associated Diagnosis Comments COMPREHENSIVE METABOLIC PANEL Routine 08/03/2019 10:16 AM CDT Other fatigue TSH Routine 08/03/2019 10:16 AM CDT 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 PAP IMAGED THIN LAYER SCREEN Routine 09/14/2018 9:39 AM DIAL BUFFER Routine general medical examination at a health care facility HIV ANTIGEN ANTIBODY COMBO Routine 07/11/2015 HEPATITIS C ANTIBODY Routine 03/18/2013 2:43 PM CDT Screening for STD (sexually transmitted disease) from Last 3 Months or Most Recently Relevant to Health Maintenance Results * (ABNORMAL) TSH (08/03/2019 10:16 AM CDT) TSH 0.09(L) 0.40 - 4.00 mU/L 08/04/2019 9:57 AM CDT [facility] Blood specimen (specimen) 08/03/2019 10:16 AM CDT 08/03/2019 10:18 AM CDT us Jolie Mandel FOOD AND NUTRITION TEACHER [facility] - BLOOD ORDERAB LES Final Result [facility] [address] [place] [address] * (ABNORMAL) Comprehensive metabolic panel (08/03/2019 10:16 AM CDT) Sodium 136 133 - 144 mmol/L 08/04/2019 9:22 AM CDT [facility] Potassium 4.0 3.4 - 5.3 mmol/L 08/04/2019 9:22 AM CDT [facility] Chloride 102 94 - 109 mmol/L 08/04/2019 9:22 AM CDT [facility] Carbon Dioxide 26 20 - 32 mmol/L 08/04/2019 9:43 AM CDT [facility] Anion Gap 8 3 - 14 mmol/L 08/04/2019 9:43 AM CDT [facility] Glucose 77 70 - 99 mg/dL 08/04/2019 9:43 AM CDT [facility] Urea Nitrogen 17 7 - 30 mg/dL 08/04/2019 9:43 AM CDT [facility] Creatinine 0.82 0.52 - 1.04 mg/dL 08/04/2019 9:43 AM CDT [facility] GFR Estimate >90 >60 mL/min/{1 .73_m2} 08/04/2019 9:43 AM CDT [facility] Comment: Non GFR Calc Starting 10/20/2018, serum creatinine based estimated GFR (eGFR) will be calculated using the Chronic Kidney Disease Epidemiology Collaboration (CKD-EPI) equation. GFR Estimate If Black >90 >60 mL/min/{1 .73_m2} 08/04/2019 9:43 AM CDT [facility] Comment: GFR Calc Starting 10/20/2018, serum creatinine based estimated GFR (eGFR) will be calculated using the Chronic Kidney Disease Epidemiology Collaboration (CKD-EPI) equation. Calcium 9.0 8.5 - 10.1 mg/dL 08/04/2019 9:43 AM CDT [facility] Bilirubin Total 1.4(H) 0.2 - 1.3 mg/dL 08/04/2019 9:50 AM [facility] Albumin 4.7 3.4 - 5.0 g/dL 08/04/2019 9:50 AM [facility] Protein Total 8.0 6.8 - 8.8 g/dL 08/04/2019 9:50 AM [facility] Alkaline Phosphatase 61 40 - 150 U/L 08/04/2019 9:50 AM [facility] ALT 23 0 - 50 U/L 08/04/2019 9:50 AM [facility] AST 20 0 - 45 U/L 08/04/2019 9:50 AM [facility] Blood specimen (specimen) 08/03/2019 10:16 AM CDT 08/03/2019 10:18 AM CDT us Jolie Mandel FOOD AND NUTRITION TEACHER [facility] - BLOOD ORDERAB LES Final Result [facility] [address] [id number], [facility] [phone] [facility] [address] [place] [address] * Pap imaged thin layer screen reflex to HPV if ASCUS - recommend age 25 - 29 (09/14/2018 9:39 AM DIAL BUFFER) PAP MP [facility] Report Patient Name: CADENCE MCLAUGHLIN MR#: [id number] Specimen #: [id number] Collected: 09/14/2018 Received: 09/15/2018 Reported: 09/17/2018 10:01 [...] MIGDALIA Rodríguez (ASCP) Processed and screened at [facility], [facility] CLINICAL HISTORY: LMP: 09/13/18 A previous normal pap Date of Last Pap: 03/03/16, Papanicolaou Test Limitations: ??Cervical cytology is a screening test with limited sensitivity; regular screening is critical for cancer prevention; Pap tests are primarily effective for the diagnosis/preventi on of squamous cell carcinoma, not adenocarcinomas or other cancers. TESTING LAB LOCATION: [address] ??[id number] COLLECTION SITE: Client: ??[facility] Location: KEISHA MORALES (R) Cytologic material (specimen) 09/14/2018 9:39 AM DIAL BUFFER 09/15/2018 10:23 AM DIAL BUFFER us Joliejesus Mandel APRN [facility] - [facility] AL SPECIMEN Final Result [facility] * HIV Antigen Antibody Combo (07/11/2015) HIV Antigen Antibody Combo negative Blood specimen (specimen) us Patient Reported LAB - BLOOD ORDERABLES Final Re sult * Hepatitis C antibody (03/18/2013 2:43 PM CDT) Hepatitis C Antibody Negative [facility]G [facility] Blood specimen (specimen) 03/18/2013 2:43 PM CDT 03/18/2013 2:44 PM CDT us Soniya Queen MD LAB - BLOOD ORDERABLES Final Res ult [facility] [address] [place] [address] from Last 3 Months or Most Recently Relevant to Health Maintenance Insurance [facility] [employer]
--- OUTSIDE RECORDS SUMMARY | 2024-09-10 10:59 | XMS_ITS | Encounter Summary ---
Author Organization [facility] Address [address] [place] [id number] Care Team Providers Care Strike Planning Applications Name Role Phone Jolie Mandel APRN, CNP Primary Care Provi leon Unavailable Jolie Mandel APRN, CNP Unavailable Un available Jolie Mandel APRN, CNP Unavailable Un available Encounter Details Date Type Department Care Team (Late st Contact Info) Description 08/18/2013 [facility] Medical Advice [address] [id number] Reny Gipson Social History Tobacco Use Types Packs/Day Years Used Date Smoking Tobacco: Every Day Cigarettes 0.5 3 Started: 08/03/2008; Last attempted to quit: 08/03/2011 Smokeless Tobacco: Never Alcohol Use Standard Drinks/Week Comments No 0 (1 standard drink = 0.6 oz pur e alcohol) Comments No Sex and Gender Information Value Date Recorded Sex Assigned at Not on file 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
[2024-09-10 15:10] LABS: Chlamydia DNA Amplified* NOT DETECTED (No Detected); GC DNA Amplified* NOT DETECTED (No Detected)
== END 2024-09-10 10:54 | disposition home or self-care (01) ==
LOC: NFLDREF 10:54
PROVIDERS: PCP Physician Assistant Medical; Visit Provider Obstetrics & Gynecology
DX: Z11.3 Encounter for screening for infections with a predominantly sexual mode of transmission (principal)
CPT/HCPCS: 87491; 87591

== ENCOUNTER 2024-10-24 17:44 | Emergency (ER) | payer OTHER, SELFPAY ==
[2024-10-24 17:57] VITALS: BP 119/86; PULSE 90; RESP 18; TEMP 37.2; O2SAT 98; BMI 21.3
--- NOTE | 2024-10-24 18:21 | ED.GENADULT ---
HPI - General Adult General Chief complaint: Urogenital Problems, Female Stated complaint: Abdomen pain, dizzyness Time Seen by Provider: 10/24/24 17:59 History of Present Illness HPI narrative: This 34-year-old female comes in reporting lower abdominal plain that has been present over the past 4 5 days and has been worsening day by day. She states that she had an IUD placed about 6 weeks ago and when this was done previously it took a few months for her menstrual cycle to eventually discontinue. She had been thinking that her abdominal pain was related to that. She went into urgent care today because of worsening pain. Urinalysis was obtained and did not show any sign of infection but results were somewhat skewed with taking azo. She does not report any dysuria symptoms. She has not had any fevers or loss of appetite. Related Data Home Medications ?Medication ?Instructions ?Recorded ?Confirmed naltrexone 1.5 mg capsule mg PO BID 03/26/24 10/08/24 aripiprazole 10 mg tablet 5 mg PO DAILY 09/10/24 10/08/24 methylphenidate HCl 20 mg tablet 20 mg PO QDAY 09/10/24 10/08/24 methylphenidate HCl 40 mg biphasic 40 mg PO QAM 09/10/24 10/08/24 50-50 capsule,extended release thyroid (pork) 90 mg tablet 90 mg PO QDAY 09/10/24 10/08/24 ([place] Thyroid) levonorgestrel (Mirena) 1 device intrauterine ONCE 10/08/24 10/08/24 Previous Rx's ?Medication ?Instructions ?Recorded fluconazole 150 mg tablet 150 mg PO Q3D 2 doses #2 tabs 10/24/24 Allergies Allergy/AdvReac Type Severity Reaction Status Date / Time No Known Drug Allergies Allergy Verified 10/24/24 09:19 Review of Systems Status of ROS: Reports: 10 or more systems reviewed and unremarkable except as noted in History and below Narrative: Constitutional: No fevers, no weight gain or loss. Eyes: No discharge. No vision changes. HENT: No congestion, no sore throat, no ear pain. Cardiovascular: No chest pain, no palpitations. Respiratory: No shortness of breath, no wheezes, no cough. Gastrointestinal: No vomiting, no diarrhea. Abdominal pain as described above. Genitourinary: No dysuria, no hematuria. Musculoskeletal: Normal range of motion. Skin: No rashes, no pruritis. Neurological: No dizziness, weakness, sensory change, speech change. Endo/Heme/Allergies: No bruising or bleeding. No polydipsia. Pysch: no suicidality, no anxiety, no insomnia. All other systems reviewed and are negative. 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 What is your current living situation?: I presently have a place to live Problems where you live: no known problems In the past 12 months, utilities in danger of being shut off: no In past 12 months, lack of transportation kept you from medical appts, meetings, work, or getting things needed for daily living: no In the past 12 mos, have been you worried that your food would run out before you had money to buy more?: never true In the past 12 mos, the food you bought just didn't last and you didn't have money to buy more?: never true Highest level of school completed/degree received: Bachelor's degree Smoking Status: Never smoker Do you use any of these nicotine containing products: Vaping Products Second hand tobacco smoke exposure: No How often do you have a drink containing alcohol: never How often do you have six or more drinks on one occasion: Never AUDIT-C Alcohol total score: 0 Non-prescribed substance use: denies use How often does anyone, including family, friends and others, physically hurt you: never How often does anyone, including family, friends and others, insult or talk down to you: never How often does anyone, including family, friends and others, threaten you with harm: never How often does anyone, including family, friends and others, scream or curse at you: never service: No Exam Narrative: Exam Narrative: Constitutional: Well-developed, well-nourished, no acute distress. HEENT: Normocephalic, atraumatic. Neck: Normal range of motion. Nontender. Supple. Heart: Regular. No murmurs. Normal rate. Intact distal pulses. Lungs: Clear to auscultation. No chest discomfort. No wheezes, rhonchi, or rales. Abdomen: Normal bowel sounds. No rebound tenderness. Pain is localized across the lower abdomen just above the pubic bone bilaterally. Genitalia: Deferred. Back: No midline tenderness. Normal range of motion. Extremities: Normal range of motion. No injury. Skin: Intact. No rash. Warm. No erythema or pallor. Neurologic: No altered sensation. No weakness. Alert and oriented. Psychiatric: No suicidality. No anxiety or depression. No insomnia. Nursing notes and vitals signs are reviewed. Const: Vital Signs, click to edit/add: Vital Signs - 24 hr 10/24/24 17:57 Temperature 99 F Pulse Rate [Pulse Oximeter] 90 Respiratory Rate 18 Blood Pressure [Le ft Upper Arm] 119/86 Pulse Oximetry 98 Oxygen Delivery Me thod Room Air Course Vital Signs Vital signs: Initial Vital Signs Temperature 99 F 10/24/24 17:57 Temperature Source Temporal Artery Scan 10/24/24 17:57 Pulse Rate 90 10/24/24 17:57 Pulse Rhythm Regular 10/24/24 17:57 Respiratory Rate 18 10/24/24 17:57 Blood Pressure 119/86 10/24/24 17:57 Blood Pressure Mean 97 10/24/24 17:57 Blood Pressure Position Supine 10/24/24 17:57 Pulse Oximetry 98 10/24/24 17:57 Oxygen Delivery Method Room Air 10/24/24 17:57 Vital Signs Temperature 99 F 10/24/24 17:57 Pulse Rate 90 10/24/24 17:57 Respiratory Rate 18 10/24/24 17:57 Blood Pressure 119/86 10/24/24 17:57 Pulse Oximetry 98 10/24/24 17:57 Oxygen Delivery Method Room Air 10/24/24 17:57 Temperature 99 F 10/24/24 17:57 Pulse Rate 90 10/24/24 17:57 Respiratory Rate 18 10/24/24 17:57 Blood Pressure 119/86 10/24/24 17:57 Pulse Oximetry 98 10/24/24 17:57 Oxygen Delivery Method Room Air 10/24/24 17:57 Medications Administered Medications: Generic Name Dose Route Start Last Admin Trade Name Freq PRN Reason Stop Dose Admin Ketamine HCl 20 mg/ Sodium 100.2 mls @ 300.6 mls/hr 10/24/24 19:40 10/24/24 20:21 Chloride IVPB 10/24/24 19:41 Infused ONCE ONE Infusion Discontinued Medications Generic Name Dose Route Start Last Admin Trade Name Freq PRN Reason Stop Dose Admin Sodium Chloride 500 mls @ 500 mls/hr 10/24/24 18:18 10/24/24 20:20 0.9 % Sodium Chloride 500 Ml IV 10/24/24 19:17 Infused .Q1H ONE Infusion Ketorolac Tromethamine 15 mg 10/24/24 18:21 10/24/24 18:43 Ketorolac 30 Mg/Ml Inj IVP 10/24/24 18:22 15 mg ONCE ONE Administration Ondansetron HCl 4 mg 10/24/24 18:18 10/24/24 18:42 Ondansetron 2 Mg/Ml Inj IVP 10/24/24 18:19 4 mg ONCE ONE Administration Medical Decision Making MDM Narrative Medical decision making narrative: This patient comes in with lower abdominal pain as described above. She arrives with normal vital signs and her abdominal exam is otherwise unremarkable except for pain in the lower abdomen. She does not have any rebound tenderness and bowel sounds are normal. An ultrasound of the pelvis is obtained with trans vaginal abuse showing normal findings. The patient did receive an IV dose of Toradol and Zofran and states that this medicine did not seem to help her much. She then received ketamine 20 mg infused over 20 minutes time. This did cause her pain to go away but now she is reporting some mild throbbing. I advised the patient to follow-up with OBGYN clinic for ongoing diagnosis and management. We did have a discussion about endometriosis which a couple providers have stated that her symptoms may be related to that. I did provide [facility] prescription for [place]. Lab Data Labs: Lab Results 10/24/24 Range/Units 18:30 WBC 6.90 (4.50-11.00) K/uL RBC 4.45 (4.00-5.20) m/uL Hgb 13.6 (12.0-16.0) gm/dL Hct 39.5 (33.0-51.0) % MCV 89 (80-100) fL MCH 31 (26-34) pg MCHC 34 (32-36) gm/dL RDW Coeff of Gavino 12.8 (11.5-15.5) % Plt Count 238 (140-440) K/uL Neut % (Auto) 49.9 (42.0-72.0) % Lymph % (Auto) 37.5 (20-44) % [place] % (Auto) 9.7 (0.0-11.0) % Eos % (Auto) 2.2 (0.0-7.0) % Baso % (Auto) 0.6 (0.0-3.0) % Neut # (Auto) 3.44 (1.7-7.0) K/uL Lymph # (Auto) 2.59 (0.90-2.90) K/uL [place] # (Auto) 0.70 (0.00-0.90) K/UL Eos # (Auto) 0.15 (0.00-0.50) K/uL Baso # (Auto) 0.04 (0.00-0.30) K/uL Abs Immat Gran (auto) 0.01 (0.00-0.30) K/uL Imm/Tot Granulo (auto) 0.1 % Sodium 138 (135-149) mmol/L Potassium 3.9 (3.6-5.1) mmol/L Chloride 105 (96-114) mmol/L Carbon Dioxide 25 (20-32) mmol/L Anion Gap 8 (7-15) mEq/L BUN 13 (5-24) mg/dL Creatinine 1.0 (0.5-1.5) mg/dL Estimated Creat Clear 64.95 Estimated GFR 75 ml/min Glucose 89 (60-115) mg/dL Calcium 8.8 (8.4-10.6) mg/dL Imaging Data US - abdomen: Radiologist's impression: Intrauterine device which appears to be in appropriate position. Otherwise, unremarkable pelvic ultrasound with incidental tiny mildly complex 1.4 centimeter left ovarian cyst with thin septa. Discharge Plan Discharge Clinical Impression: Abdominal pain Patient Disposition: Home w/ Parent or Adult Condition: Stable Additional Instructions: Take medication as needed and indicated. Follow-up with OBGYN clinic for ongoing diagnosis and management. Return if worsening. Prescriptions: No Action aripiprazole 10 mg tablet 5 mg PO DAILY methylphenidate HCl 20 mg tablet 20 mg PO QDAY naltrexone 1.5 mg capsule PO BID thyroid (pork) [[place] Thyroid] 90 mg tablet 90 mg PO QDAY methylphenidate HCl 40 mg capsule,ER biphasic 50-50 40 mg PO QAM Mirena 21 mcg/24hr (up to 8 yrs) 52 mg intrauterine device 1 device intrauterine ONCE Rx Instructions: as a single dose fluconazole 150 mg tablet 150 mg PO Q3D Qty: 2 0RF Rx Instructions: may repeat second dose 72 hrs after first dose if symptoms persist Follow Up/Referrals: Edu Fairchild MD [Primary Care Provider] - Stand Alone Forms: MyHealth Info Instructions
--- NOTE | 2024-10-24 18:23 | CRLHL7_ITS ---
For Patients: As a result of the Century Cures Act, medical imaging exams and procedure reports are released immediately into your electronic medical record. You may view this report before your referring provider. If you have questions, please contact your health care provider. INDICATION: Lower abdominal pain. TECHNIQUE: Ultrasound pelvis transabdominal and transvaginal for better assessment or to better visualize the endometrium. Real-time sonographic images with spectral and color Doppler imaging of the ovaries were obtained. COMPARISON: None. FINDINGS: Uterus: 8.8 x 3.4 x 4.9 cm. Normal echotexture of the myometrium. No masses. Endometrium: Transvaginal imaging was performed to better evaluate the endometrium. Endometrial thickness measures 6 mm. No sign of endometrial mass or fluid. Intrauterine device which appears to be in appropriate position. Right ovary 2.8 x 2.9 x 2.5 centimeters. Left ovary 3.8 x 2.8 x 2.7 centimeters. Incidental tiny mildly complex 1.4 centimeter left ovarian cyst with thin septum. No ovarian or adnexal masses. Normal arterial and venous blood flow is demonstrated in both ovaries. Cul-de-sac: No significant free fluid. IMPRESSION: Intrauterine device which appears to be in appropriate position. Otherwise, unremarkable pelvic ultrasound with incidental tiny mildly complex 1.4 centimeter left ovarian cyst with thin septa. Dictated by Lan Davis MD @ 10/24/2024 8:05:45 PM (Electronically Signed)
[2024-10-24] MEDS: 0.9 % SODIUM CHLORIDE 500 ML 500 ML IV (18:37)
[2024-10-24 18:42] LABS: Basophils Absolute Auto 0.04 K/uL (0.00-0.30); Basophils Percent Auto 0.6 % (0.0-3.0); Eosinophils Absolute Auto 0.15 K/uL (0.00-0.50); Eosinophils Percent Auto 2.2 % (0.0-7.0); Hematocrit 39.5 % (33.0-51.0); Hemoglobin* 13.6 gm/dL (12.0-16.0); Immature Granulocytes Abs Auto 0.01 K/uL (0.00-0.30); Immature Granulocytes Pct Auto 0.1 %; Lymphocytes Absolute Auto 2.59 K/uL (0.90-2.90); Lymphocytes Percent Auto 37.5 % (20-44); Mean Corpuscular HGB Conc 34 gm/dL (32-36); Mean Corpuscular Hemoglobin 31 pg (26-34); Mean Corpuscular Volume 89 fL (80-100); Monocytes Percent Auto 9.7 % (0.0-11.0); Neutrophils Absolute Auto 3.44 K/uL (1.7-7.0); Neutrophils Percent Auto 49.9 % (42.0-72.0); Platelet Count* 238 K/uL (140-440); RDW Coefficient of Variation % 12.8 % (11.5-15.5); Red Blood Count 4.45 m/uL (4.00-5.20)
[2024-10-24] MEDS: ONDANSETRON 2 MG/ML inj 4 MG IVP (18:42)
[2024-10-24] MEDS: KETOROLAC 30 MG/ML inj 15 MG IVP (18:43)
[2024-10-24 18:44] LABS: Slide Review Reflex No
[2024-10-24 18:53] LABS: Chloride* 105 mmol/L (96-114); Potassium* 3.9 mmol/L (3.6-5.1); Sodium* 138 mmol/L (135-149)
[2024-10-24 18:56] LABS: Anion Gap 8 mEq/L (7-15); Blood Urea Nitrogen* 13 mg/dL (5-24); Carbon Dioxide* 25 mmol/L (20-32); Est. Creatinine Clearance* 64.95; Estimated Glomerular Filt Rate 75 ml/min
[2024-10-24 18:57] LABS: Calcium* 8.8 mg/dL (8.4-10.6); Glucose* 89 mg/dL (60-115)
[2024-10-24] MEDS: KETAMINE HCL 20 MG in 0.9 % SODIUM CHLORIDE 100 ml 100 ML 300.6 MG IVPB (20:03)
== END 2024-10-24 20:28 | disposition home or self-care (01) ==
PROVIDERS: Emergency Provider Emergency Medicine Emergency Medical Services; PCP Family Medicine
DX: R10.9 Unspecified abdominal pain (principal); R30.0 Dysuria; B37.31 Acute candidiasis of vulva and vagina
CPT/HCPCS: 36415; 76830; 80048; 85025; 87086; 93976; 96365; 96375; 99284; J1885; J2405; J3490; J7030

== ENCOUNTER 2025-03-24 14:51 | Emergency (ER) | payer OTHER, SELFPAY ==
--- OUTSIDE RECORDS SUMMARY | 2025-02-24 15:44 | XMS_ITS | Encounter Summary ---
Author Organization [facility] Address [address] [place] [address] Care Team Providers Care Well Flow Operator Name Role Phone No Ref-Primary, Physician Primary Care Provider Hemant Patel MD Unavailable Reason for Referral * Diagnostic Imaging Ultrasound (Routine) - Pending Review Specialty Diagnoses / Procedures Referred By Contac t Referred To Contact Radiology. 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 Yes 12/08/2024 Within the past 12 months, h ave you been hit, slapped, kicked or otherwise physically hurt by someone? No 12/08/2024 Within the past 12 months, h ave you been humiliated or emotionally abused in other ways by your partner or ex-partner? No 12/08/2024 Comments No Sex and Gender Information Value Date Recorded Sex Assigned at Female 12/03/2024 9:09 AM TREE AND SHRUB WORKER Legal Sex Female 4:05 AM TREE AND SHRUB WORKER Gender Identity Female 12/03/2024 9:09 AM TREE AND SHRUB WORKER Sexual Orientation Straight 12/03/2024 9: 09 AM TREE AND SHRUB WORKER documented as of this encounter Medications at Time of Discharge amphetamine-dextr oamphetamine (ADDERALL) 20 MG tabletIndications :Adult ADHD Take 1 tablet (20 mg) by mouth daily. 30 tablet 03/07/2025 amphetamine-dextr oamphetamine (ADDERALL) 20 MG tabletIndications :Adult ADHD Take 1 tablet (20 mg) by mouth daily. 30 tablet 12/15/2024 ARIPiprazole (ABILIFY) 5 MG tabletIndications :Generalized anxiety disorder,Moderate recurrent major depression (H) Take 1 tablet (5 mg) by mouth daily. 90 tablet 3 12/08/2024 ARMOUR THYROID 120 MG tablet 12/07/2024 cetirizine (ZYRTEC) 10 MG tablet Take 1 tablet by mouth 2 times daily. 12/07/2024 famotidine (PEPCID) 20 MG tablet Take 20 mg by mouth 2 times daily. 12/07/2024 levothyroxine (SYNTHROID/LEVOTH ROID) 125 MCG tabletIndications :Hypothyroidism due to Timur's thyroiditis Take 1 tablet (125 mcg) by mouth daily TAKE 1 TABLET BY MOUTH EVERY DAY 90 tablet 1 08/05/2019 lisdexamfetamine (VYVANSE) 70 MG capsuleIndication s:Adult ADHD Take 1 capsule (70 mg) by mouth daily. 30 capsule 03/07/2025 5 lisdexamfetamine (VYVANSE) 70 MG capsuleIndication s:Adult ADHD Take 1 capsule (70 mg) by mouth every morning. 30 capsule 12/08/2024 ondansetron (ZOFRAN) 4 MG tablet take one tablet by mouth every 8 hours as needed for nausea and vomiting 10/01/2024 amphetamine-dextr oamphetamine (ADDERALL) 20 MG tabletIndications :Adult ADHD Take 1 tablet (20 mg) by mouth daily. 30 tablet 02/05/2025 lisdexamfetamine (VYVANSE) 70 MG capsuleIndication s:Adult ADHD Take 1 capsule (70 mg) by mouth daily. 30 capsule 02/05/2025 5 documented as of this encounter Plan of Treatment Upcoming Encounters Date Type Department Care Team (Late st Contact Info) Description 03/31/2025 4:30 PM CDT Virtual Visit [facility] [address] [place] [phone] [place] [address] [place] [address] 07/11/2025 10:00 AM CDT Virtual Visit [facility] [address] [place] [address] [place] [address] [place] [address] documented as of this encounter Procedures Procedure Name Priority Date/Time Associated Diagnosis Comments US THYROID Routine 02/24/2025 4:08 PM CDT 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 Heterogeneous thyroid gland echotexture, in keeping with autoimmune thyroiditis. 2. No distinct thyroid nodule. Nodules are characterized per ACR Thyroid Imaging, Reporting and Data System (TI-RADS): White Paper of the ACR TI-RADS Committee Howard Velasquez et al. Journal of the [place] [employer] 2017. Volume 14 (2017), Issue 5, 587-657. Narrative 02/25/2025 10:44 AM CDT EXAM: US THYROID LOCATION: [facility] DATE: 02/24/2025 INDICATION: timur surveillance, hypothyroidism. COMPARISON: None. TECHNIQUE: Thyroid ultrasound. FINDINGS: RIGHT lobe: 5.6 x 1.6 x 1.4 cm. Heterogenous echotexture. Isthmus: 5 mm. LEFT lobe: 5 x 1.2 x 1.3 cm. Heterogenous echotexture. NECK: No cervical lymphadenopathy. NODULES: No distinct nodule. Procedure Note Farshad Jerez MD - 02/25/2025 EXAM: US THYROID LOCATION: [facility] DATE: 02/24/2025 INDICATION: timur surveillance, hypothyroidism. COMPARISON: None. TECHNIQUE: Thyroid ultrasound. FINDINGS: RIGHT lobe: 5.6 x 1.6 x 1.4 cm. Heterogenous echotexture. Isthmus: 5 mm. LEFT lobe: 5 x 1.2 x 1.3 cm. Heterogenous echotexture. NECK: No cervical lymphadenopathy. NODULES: No distinct nodule. IMPRESSION: 1. Heterogeneous thyroid gland echotexture, in keeping with autoimmunethyroiditis. 2. No distinct thyroid nodule. Nodules are characterized per ACR Thyroid Imaging, Reporting and Data System (TI-RADS): White Paper ofthe ACR TI-RADS Committee Howard Velasquez et al. Journal of the [place] [employer] of Rndwjfina3789. Volume 14 (2017), Issue 5, 527-302. 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
--- OUTSIDE RECORDS SUMMARY | 2025-03-24 14:53 | XMS_ITS | Encounter Summary ---
Author Organization [facility] Address [address] [place] [address]. [place] [address] Care Team Providers Care Crown Assembly Machine Set Up Mechanic Name Role Phone TequilaJolie hernández APRN NUTRITION ASSOCIATE Primary Care Provi leon Unavailable Tequila, Jolie Foley APRN NUTRITION ASSOCIATE Unavailable Un available Tequila, Jolie Foley APRN NUTRITION ASSOCIATE Unavailable Un available No Ref-Primary, Physician Primary Care Provider Hemant Patel MD Unavailable Reason for Visit * Reason Onset Date Comments Refill Request 09/23/2014 amphetamine-dext roamphetamine (ADDERALL) 10 MG tablet Encounter Details Date Type Department Care Team (Late st Contact Info) Description 09/23/2014 MyC Refill [facility] [id number] [place] [phone] Ida Davila PA-C [address] [place] [address] Refill Request (amphetamine-dextroamp hetam... Social History Tobacco Use Types Packs/Day Years Used Date Smoking Tobacco: Every Day Cigarettes 0.5 3 Started: 08/03/2008; Last attempted to quit: 08/03/2011 Smokeless Tobacco: Never Alcohol Use Standard Drinks/Week Comments No 0 (1 standard drink = 0.6 oz pur e alcohol) Comments No Sex and Gender Information Value Date Recorded Sex Assigned at Female 12/03/2024 9:09 AM EVENT EXECUTIVE Legal Sex Female 4:05 AM EVENT EXECUTIVE Gender Identity Female 12/03/2024 9:09 AM EVENT EXECUTIVE Sexual Orientation Straight 12/03/2024 9: 09 AM EVENT EXECUTIVE documented as of this encounter Miscellaneous Notes * Telephone Encounter - Karla Tang CMA - 09/23/2014 2:56 PM EVENT EXECUTIVE Lm that rx is ready for pickup Karla Tang CMA T EXECUTIVE * Telephone Encounter - Ida Davila PA-C - 09/23/2014 2:17 PM CST prescription approved, please let patient know this medication has been refilled. T EXECUTIVE * Telephone Encounter - Reny Gipson - 09/23/2014 10:48 AM [facility]Message [facility] Original authorizing provider: Ida Davila PA-C, RYAN Luis would like a refill of the following medications: amphetamine-dextroamphetamine (ADDERALL) 10 MG tablet [Ida Mitchell PA-C, PA-C] Preferred pharmacy: [facility] [address] [place] [address] [address] Comment: Please renew- last renewal was on 08/22/14. I have my official apt with Dr Moncada in 3 weeks (The psych testing results are being prepared right now and I have a follow up with him in 3 weeks) will send findings to the [facility] office from [place] and . thanks! T EXECUTIVE documented in this encounter Plan of Treatment Upcoming Encounters Date Type Department Care Team (Late st Contact Info) Description 03/31/2025 4:30 PM CDT Virtual Visit [address] [phone] [place] [address] [place] [address] 07/11/2025 10:00 AM CDT Virtual Visit [facility] [address] [place] [address] [place] [address] [place] [address] documented as of this encounter Visit Diagnoses Diagnosis ADHD (attention deficit hyperactivity disorder) Attention deficit disorder with hyperactivity documented in this encounter Care Teams Crown Assembly Machine Set Up Mechanic Relationship Specialty Start Date End Date Jolie Mandel APRN CNP PCP - General Nurse Practitioner 02/27/17 10/09/23 Jolie Mandel APRN NUTRITION ASSOCIATE PCP - Assigned PCP 08/18/16 01/05/19 No Ref-Primary, Physician PCP - General 12/08/24 Jolie Mandel APRN NUTRITION ASSOCIATE Assigned PCP 08/18/16 05/31/22 [place] [address] [place] [address] Assigned PCP 12/26/24 documented as of this encounter
--- OUTSIDE RECORDS SUMMARY | 2025-03-24 14:53 | XMS_ITS | Encounter Summary ---
Author Organization [place] Address [address] [place] [address] Care Team Providers Care Salesperson Meats Name Role Phone Tequila, Jolie Foley APRN ON CALL PHARMACY TECHNICIAN Primary Care Provi leon Unavailable Tequila, Jolie Foley APRN ON CALL PHARMACY TECHNICIAN Unavailable Un available Tequila, Jolie Foley APRN ON CALL PHARMACY TECHNICIAN Unavailable Un available No Ref-Primary, Physician Primary Care Provider Hemant Patel MD Unavailable Encounter Details Date Type Department Care Team (Late st Contact Info) Description 12/08/2014 MyC Medical Advice [address] [phone] Karla Tang, CLOCK MECHANIC Social History Tobacco Use Types Packs/Day Years Used Date Smoking Tobacco: Every Day Cigarettes 0.5 3 Started: 08/03/2008; Last attempted to quit: 08/03/2011 Smokeless Tobacco: Never Alcohol Use Standard Drinks/Week Comments No 0 (1 standard drink = 0.6 oz pur e alcohol) Comments No Sex and Gender Information Value Date Recorded Sex Assigned at Female 12/03/2024 9:09 AM REHAB/PRE VOCATIONAL COUNSELOR Legal Sex Female 4:05 AM REHAB/PRE VOCATIONAL COUNSELOR Gender Identity Female 12/03/2024 9:09 AM REHAB/PRE VOCATIONAL COUNSELOR Sexual Orientation Straight 12/03/2024 9: 09 AM REHAB/PRE VOCATIONAL COUNSELOR documented as of this encounter Plan of Treatment Upcoming Encounters Date Type Department Care Team (Late st Contact Info) Description 03/31/2025 4:30 PM CDT Virtual Visit [facility] [address] [place] [address] [place] [address] [place] [address] 07/11/2025 10:00 AM CDT Virtual Visit [facility] [address] [place] [address] [place] [address] [place] [address] documented as of this encounter Visit Diagnoses Not on filedocumented in this encounter Care Teams Salesperson Meats Relationship Specialty Start Date End Date Jolie Mandel APRN CNP PCP - General Nurse Practitioner 02/27/17 10/09/23 Jolie Mandel APRN ON CALL PHARMACY TECHNICIAN PCP - Assigned PCP 08/18/16 01/05/19 No Ref-Primary, Physician PCP - General 12/08/24 Jolie Mandel APRN ON CALL PHARMACY TECHNICIAN Assigned PCP 08/18/16 05/31/22 [place] [address] [place] [address] Assigned PCP 12/26/24 documented as of this encounter
--- OUTSIDE RECORDS SUMMARY | 2025-03-24 14:53 | XMS_ITS | Encounter Summary ---
Author Organization [facility] Address [address] [place] [address]. [place] [address] Care Team Providers Care Manager Mobility Name Role Phone Tequila, Jolie Foley APRN KNITTED GARMENT FINISHER Primary Care Provi leon Unavailable Tequila, Jolie Foley APRN KNITTED GARMENT FINISHER Unavailable Un available Tequila, Jolie Foley APRN KNITTED GARMENT FINISHER Unavailable Un available No Ref-Primary, Physician Primary Care Provider Hemant Patel MD Unavailable Encounter Details Date Type Department Care Team (Late st Contact Info) Description 04/05/2016 [facility] Medical Advice [address] [phone] Dolly Tsang APRN KNITTED GARMENT FINISHER [id number] [place] [phone] Social History Tobacco Use Types Packs/Day Years Used Date Smoking Tobacco: Every Day Cigarettes 0.3 3 Started: 01/24/2013; Last attempted to quit: 01/25/2016 Smokeless Tobacco: Never Comments:stopped 06/10/2015 Alcohol Use Standard Drinks/Week Comments No 0 (1 standard drink = 0.6 oz pur e alcohol) Comments No Sex and Gender Information Value Date Recorded Sex Assigned at Female 12/03/2024 9:09 AM IN HOME BABY SITTER Legal Sex Female 4:05 AM IN HOME BABY SITTER Gender Identity Female 12/03/2024 9:09 AM IN HOME BABY SITTER Sexual Orientation Straight 12/03/2024 9: 09 AM IN HOME BABY SITTER documented as of this encounter Plan of Treatment Upcoming Encounters Date Type Department Care Team (Late st Contact Info) Description 03/31/2025 4:30 PM CDT Virtual Visit [facility] [address] [place] [phone] [place] [address] [place] [address] 07/11/2025 10:00 AM CDT Virtual Visit [facility] [address] [place] [phone] [place] [address] [place] [address] documented as of this encounter Visit Diagnoses Not on filedocumented in this encounter Care Teams Manager Mobility Relationship Specialty Start Date End Date Jolie Mandel APRN CNP PCP - General Nurse Practitioner 02/27/17 10/09/23 Jolie Mandel APRN CNP PCP - Assigned PCP 08/18/16 01/05/19 No Ref-Primary, Physician PCP - General 12/08/24 Jolie Mandel APRN CNP Assigned PCP 08/18/16 05/31/22 [place] [address] [place] [address] Assigned PCP 12/26/24 documented as of this encounter
--- OUTSIDE RECORDS SUMMARY | 2025-03-24 14:53 | XMS_ITS | Encounter Summary ---
Author Organization [facility] Address [address] [place] [address] Care Team Providers Care Chemical Equipment Repairer Name Role Phone Tequila, Jolie Foley APRN HOTEL ASSISTANT MANAGER Primary Care Provi leon Unavailable Tequila, Jolie Foley APRN HOTEL ASSISTANT MANAGER Unavailable Un available Tequila, Jolie Foley APRN HOTEL ASSISTANT MANAGER Unavailable Un available No Ref-Primary, Physician Primary Care Provider Hemant Patel MD Unavailable Reason for Visit * Reason Onset Date Comments MyChart Communication 10/12/2012 Encounter Details Date Type Department Care Team (Latest Contact Info) Description 10/12/2012 MyC Medical Advice [address] [phone] Soniya Queen MD [address] [place] [phone] MyChart Communication Social History Tobacco Use Types Packs/Day Years Used Date Smoking Tobacco: Smoker, Current Status Unknown Cigarettes 1 3 Started: 08/03/2008; Last attempted to quit: 08/03/2011 Smokeless Tobacco: Never Alcohol Use Standard Drinks/Week Comments No 0 (1 standard drink = 0.6 oz pur e alcohol) Comments No Sex and Gender Information Value Date Recorded Sex Assigned at Female 12/03/2024 9:09 AM ADDICTIONS COUNSELOR Legal Sex Female 4:05 AM ADDICTIONS COUNSELOR Gender Identity Female 12/03/2024 9:09 AM ADDICTIONS COUNSELOR Sexual Orientation Straight 12/03/2024 9: 09 AM ADDICTIONS COUNSELOR documented as of this encounter Plan of Treatment Upcoming Encounters Date Type Department Care Team (Late st Contact Info) Description 03/31/2025 4:30 PM CDT Virtual Visit [facility] [address] [place] [phone] [place] [address] [place], [place] [phone] 07/11/2025 10:00 AM CDT Virtual Visit [facility] [address] [place] [phone] [place] [address] [place] [address] documented as of this encounter Visit Diagnoses Not on filedocumented in this encounter Care Teams Chemical Equipment Repairer Relationship Specialty Start Date End Date Jolie Mandel APRN CNP PCP - General Nurse Practitioner 02/27/17 10/09/23 Jolie Mandel APRN HOTEL ASSISTANT MANAGER PCP - Assigned PCP 08/18/16 01/05/19 No Ref-Primary, Physician PCP - General 12/08/24 Jolie Mandel APRN CNP Assigned PCP 08/18/16 05/31/22 [place] [address] [place] [address] Assigned PCP 12/26/24 documented as of this encounter
--- OUTSIDE RECORDS SUMMARY | 2025-03-24 14:53 | XMS_ITS | Encounter Summary ---
Author Organization [facility] Address [address] [place] [address] Care Team Providers Care Electrical Inspector Name Role Phone Tequila, Jolie Foley APRN VENDING MACHINE SERVICER Primary Care Provi leon Unavailable Tequila, Jolie Foley APRN VENDING MACHINE SERVICER Unavailable Un available Tequila, Jolie Foley APRN VENDING MACHINE SERVICER Unavailable Un available No Ref-Primary, Physician Primary Care Provider Hemant Patel MD Unavailable Encounter Details Date Type Department Care Team (Late st Contact Info) Description 10/12/2012 MyC Medical Advice [address] [phone] Soniya Queen MD [address] [place] [phone] Social History Tobacco Use Types Packs/Day Years Used Date Smoking Tobacco: Smoker, Current Status Unknown Cigarettes 1 3 Started: 08/03/2008; Last attempted to quit: 08/03/2011 Smokeless Tobacco: Never Alcohol Use Standard Drinks/Week Comments No 0 (1 standard drink = 0.6 oz pur e alcohol) Comments No Sex and Gender Information Value Date Recorded Sex Assigned at Female 12/03/2024 9:09 AM BEAUTY CULTURIST APPRENTICE Legal Sex Female 4:05 AM BEAUTY CULTURIST APPRENTICE Gender Identity Female 12/03/2024 9:09 AM BEAUTY CULTURIST APPRENTICE Sexual Orientation Straight 12/03/2024 9: 09 AM BEAUTY CULTURIST APPRENTICE documented as of this encounter Plan of Treatment Upcoming Encounters Date Type Department Care Team (Late st Contact Info) Description 03/31/2025 4:30 PM CDT Virtual Visit [facility] [address] [place] [phone] [place] [address] [place] [address] 07/11/2025 10:00 AM CDT Virtual Visit [facility] [address] [place] [phone] [place] [address] [place], [place] [phone] documented as of this encounter Visit Diagnoses Not on filedocumented in this encounter Care Teams Electrical Inspector Relationship Specialty Start Date End Date Jolie Mandel APRN VENDING MACHINE SERVICER PCP - General Nurse Practitioner 02/27/17 10/09/23 Jolie Mandel APRN VENDING MACHINE SERVICER PCP - Assigned PCP 08/18/16 01/05/19 No Ref-Primary, Physician PCP - General 12/08/24 Jolie Mandel APRN VENDING MACHINE SERVICER Assigned PCP 08/18/16 05/31/22 Hem[place] Patel [place] [id number] [place] [address] Assigned PCP 12/26/24 documented as of this encounter
--- OUTSIDE RECORDS SUMMARY | 2025-03-24 14:53 | XMS_ITS | Encounter Summary ---
Author Organization [facility] Address [address] [place] [address] Care Team Providers Care Jewel Bearing Polisher Name Role Phone Tequila, Jolie Foley APRN BREWER HELPER Primary Care Provi leon Unavailable Tequila, Jolie Foley APRN BREWER HELPER Unavailable Un available Tequila, Jolie Foley APRN BREWER HELPER Unavailable Un available No Ref-Primary, Physician Primary Care Provider Hemant Patel MD Unavailable Encounter Details Date Type Department Care Team (Late st Contact Info) Description 05/30/2016 MyC Medical Advice [address] [phone] Zoë Hendricks, TRADING MANAGER Social History Tobacco Use Types Packs/Day Years Used Date Smoking Tobacco: Every Day Cigarettes 0.3 3 Started: 01/24/2013; Last attempted to quit: 01/25/2016 Smokeless Tobacco: Never Comments:stopped 06/10/2015 Alcohol Use Standard Drinks/Week Comments No 0 (1 standard drink = 0.6 oz pur e alcohol) Comments No Sex and Gender Information Value Date Recorded Sex Assigned at Female 12/03/2024 9:09 AM BIKE SHOP MANAGER Legal Sex Female 4:05 AM BIKE SHOP MANAGER Gender Identity Female 12/03/2024 9:09 AM BIKE SHOP MANAGER Sexual Orientation Straight 12/03/2024 9: 09 AM BIKE SHOP MANAGER documented as of this encounter Plan of Treatment Upcoming Encounters Date Type Department Care Team (Late st Contact Info) Description 03/31/2025 4:30 PM CDT Virtual Visit [facility] [address] [place] [phone] [place] [address] [place] [address] 07/11/2025 10:00 AM CDT Virtual Visit [facility] [address] [place] [phone] [place] [address] [place] [address] documented as of this encounter Visit Diagnoses Not on filedocumented in this encounter Care Teams Jewel Bearing Polisher Relationship Specialty Start Date End Date Jolie Mandel APRN BREWER HELPER PCP - General Nurse Practitioner 02/27/17 10/09/23 Jolie Mandel APRN BREWER HELPER PCP - Assigned PCP 08/18/16 01/05/19 No Ref-Primary, Physician PCP - General 12/08/24 Jolie Mandel APRN BREWER HELPER Assigned PCP 08/18/16 05/31/22 [place] [address] [place] [address] Assigned PCP 12/26/24 documented as of this encounter
--- OUTSIDE RECORDS SUMMARY | 2025-03-24 14:53 | XMS_ITS | Encounter Summary ---
Author Organization [place] Address [address] [place] [address] Care Team Providers Care Annealer Name Role Phone Jolie Mandel APRN STAFF REPORTER Primary Care Provi leon Unavailable Tequila, Jolie Foley APRN STAFF REPORTER Unavailable Un available Tequila, Jolie Foley APRN STAFF REPORTER Unavailable Un available No Ref-Primary, Physician Primary Care Provider Hemant Patel MD Unavailable Encounter Details Date Type Department Care Team (Late st Contact Info) Description 09/22/2015 MyC Medical Advice [address] [address] Dolly Tsang, HUMAN RESOURCES BENEFITS SPECIALIST STAFF REPORTER [address] [place], [place] [phone] Social History Tobacco Use Types Packs/Day Years Used Date Smoking Tobacco: Former Cigarettes 0.5 3 0 06/07/2012 - 06/07/2015 Smokeless Tobacco: Never Comments:stopped 06/10/2015 Alcohol Use Standard Drinks/Week Comments No 0 (1 standard drink = 0.6 oz pur e alcohol) Comments Yes Sex and Gender Information Value Date Recorded Sex Assigned at Female 12/03/2024 9:09 AM SOLVENT PLANT TREATER Legal Sex Female 4:05 AM SOLVENT PLANT TREATER Gender Identity Female 12/03/2024 9:09 AM SOLVENT PLANT TREATER Sexual Orientation Straight 12/03/2024 9: 09 AM SOLVENT PLANT TREATER documented as of this encounter Plan of Treatment Upcoming Encounters Date Type Department Care Team (Late st Contact Info) Description 03/31/2025 4:30 PM CDT Virtual Visit [facility] [address] [place] [phone] [place] [address] [place] [address] 07/11/2025 10:00 AM CDT Virtual Visit [facility] [address] [place] [phone] [place] [address] [place] [address] documented as of this encounter Visit Diagnoses Not on filedocumented in this encounter Care Teams Annealer Relationship Specialty Start Date End Date Jolie Mandel APRN STAFF REPORTER PCP - General Nurse Practitioner 02/27/17 10/09/23 Jolie Mandel APRN STAFF REPORTER PCP - Assigned PCP 08/18/16 01/05/19 No Ref-Primary, Physician PCP - General 12/08/24 Jolie Mandel APRN STAFF REPORTER Assigned PCP 08/18/16 05/31/22 [place] [address] [place] [address] Assigned PCP 12/26/24 documented as of this encounter
--- OUTSIDE RECORDS SUMMARY | 2025-03-24 14:53 | XMS_ITS | Encounter Summary ---
Author Organization [place] Address [address] [place] [address] Care Team Providers Care Laboratory Apparatus Glass Blower Name Role Phone Tequila, Jolie Foley APRN FUEL TECHNICIAN Primary Care Provi leon Unavailable Tequila, Jolie Foley APRN FUEL TECHNICIAN Unavailable Un available Tequila, Jolie Foley APRN FUEL TECHNICIAN Unavailable Un available No Ref-Primary, Physician Primary Care Provider Hemant Patel MD Unavailable Encounter Details Date Type Department Care Team (Late Contact Info) Description 03/03/2017 MyC Medical Advice [address] [address] Edwina Stephenson, NITROGLYCERIN NEUTRALIZER Social History Tobacco Use Types Packs/Day Years Used Date Smoking Tobacco: Every Day Cigarettes Last attempted to quit: 01/24/2013 Other Smokeless Tobacco: Never Comments:e-cig Alcohol Use Standard Drinks/Week Comments No 0 (1 standard drink = 0.6 oz pur e alcohol) Comments No Sex and Gender Information Value Date Recorded Sex Assigned at Female 12/03/2024 9:09 AM ASSEMBLER CLIP ON SUNGLASSES Legal Sex Female 4:05 AM ASSEMBLER CLIP ON SUNGLASSES Gender Identity Female 12/03/2024 9:09 AM ASSEMBLER CLIP ON SUNGLASSES Sexual Orientation Straight 12/03/2024 9: 09 AM ASSEMBLER CLIP ON SUNGLASSES documented as of this encounter Plan of Treatment Upcoming Encounters Date Type Department Care Team (Late Contact Info) Description 03/31/2025 4:30 PM CDT Virtual Visit [facility] [phone] [place] [phone] [place] [address] [place] [address] 07/11/2025 10:00 AM CDT Virtual Visit [facility] [address] [place] [phone] [place] [address] [place] [address] documented as of this encounter Visit Diagnoses Not on filedocumented in this encounter Additional Health Concerns Assessment Noted Time PHQ-9 Depression Total Score: 21 016 7:22 AM CDT documented as of this encounter Care Teams Laboratory Apparatus Glass Blower Relationship Specialty Start Date End Date Jolie Mandel APRN FUEL TECHNICIAN PCP - General Nurse Practitioner 02/27/17 10/09/23 Jolie Mandel APRN FUEL TECHNICIAN PCP - Assigned PCP 08/18/16 01/05/19 No Ref-Primary, Physician PCP - General 12/08/24 Jolie Mandel APRN CNP Assigned PCP 08/18/16 05/31/22 [place] [address] [place] [address] Assigned PCP 12/26/24 documented as of this encounter
--- OUTSIDE RECORDS SUMMARY | 2025-03-24 14:54 | XMS_ITS | Encounter Summary ---
Author Organization [place] Address [address] [place] [address] Care Team Providers Care [place] Name Role Phone Tequila, Jolie Foley APRN CD STORAGE AND MATERIALS MAKE UP HELPER Primary Care Provi leon Unavailable Tequila, Jolie Foley APRN CD STORAGE AND MATERIALS MAKE UP HELPER Unavailable Un available Tequila, Jolie Foley APRN CD STORAGE AND MATERIALS MAKE UP HELPER Unavailable Un available No Ref-Primary, Physician Primary Care Provider Hemant Patel MD Unavailable Encounter Details Date Type Department Care Team (Late st Contact Info) Description 02/08/[address] [facility] [id number] [place] [phone] [facility] Social History Tobacco Use Types Packs/Day Years Used Date Smoking Tobacco: Every Day Cigarettes 1 3 Started: 08/03/2008; Last attempted to quit: 08/03/2011 Smokeless Tobacco: Never Alcohol Use Standard Drinks/Week Comments No 0 (1 standard drink = 0.6 oz pur e alcohol) Comments No Sex and Gender Information Value Date Recorded Sex Assigned at Female 12/03/2024 9:09 AM SENIOR PLANNING ANALYST Legal Sex Female 4:05 AM SENIOR PLANNING ANALYST Gender Identity Female 12/03/2024 9:09 AM SENIOR PLANNING ANALYST Sexual Orientation Straight 12/03/2024 9: 09 AM SENIOR PLANNING ANALYST documented as of this encounter Plan of Treatment Upcoming Encounters Date Type Department Care Team (Late st Contact Info) Description 03/31/2025 4:30 PM CDT Virtual Visit [facility] [address] [place] [address] [place] [address] [place] [address] 07/11/2025 10:00 AM CDT Virtual Visit [facility] [address] [place] [address] [place] [address] [place] [address] documented as of this encounter Visit Diagnoses Not on filedocumented in this encounter Care Teams [place] Relationship Specialty Start Date End Date Jolie Mandel APRN CNP PCP - General Nurse Practitioner 02/27/17 10/09/23 Jolie Mandel APRN CD STORAGE AND MATERIALS MAKE UP HELPER PCP - Assigned PCP 08/18/16 01/05/19 No Ref-Primary, Physician PCP - General 12/08/24 Jolie Mandel APRN CD STORAGE AND MATERIALS MAKE UP HELPER Assigned PCP 08/18/16 05/31/22 [place] [address] [place] [address] Assigned PCP 12/26/24 documented as of this encounter
--- OUTSIDE RECORDS SUMMARY | 2025-03-24 14:54 | XMS_ITS | Encounter Summary ---
Author Organization [place] Address [address] [place] [address] Care Team Providers Care District Court Reporter Name Role Phone Tequila, Jolie Foley APRN COIL TIER Primary Care Provi leon Unavailable Tequila, Jolie Foley APRN COIL TIER Unavailable Un available Tequila, Jolie Foley APRN COIL TIER Unavailable Un available No Ref-Primary, Physician Primary Care Provider Hemant Patel MD Unavailable Encounter Details Date Type Department Care Team (Late st Contact Info) Description 12/25/2011 [facility] [address] [phone] Soniya Queen MD [address] [place] [phone] Social History Tobacco Use Types Packs/Day Years Used Date Smoking Tobacco: Former Cigarettes Smokeless Tobacco: Never Alcohol Use Standard Drinks/Week Comments No 0 (1 standard drink = 0.6 oz pur e alcohol) Comments Yes Sex and Gender Information Value Date Recorded Sex Assigned at Female 12/03/2024 9:09 AM RETORT CONDENSER ATTENDANT Legal Sex Female 4:05 AM RETORT CONDENSER ATTENDANT Gender Identity Female 12/03/2024 9:09 AM RETORT CONDENSER ATTENDANT Sexual Orientation Straight 12/03/2024 9: 09 AM RETORT CONDENSER ATTENDANT documented as of this encounter Plan of Treatment Upcoming Encounters Date Type Department Care Team (Late st Contact Info) Description 03/31/2025 4:30 PM CDT Virtual Visit [facility] [address] [place] [address] [place] [address] [place] [address] 07/11/2025 10:00 AM CDT Virtual Visit [facility] [address] [place] [phone] [place] [address] [place] [address] documented as of this encounter Visit Diagnoses Not on filedocumented in this encounter Care Teams District Court Reporter Relationship Specialty Start Date End Date Jolie Mandel APRN COIL TIER PCP - General Nurse Practitioner 02/27/17 10/09/23 Jolie Mandel APRN COIL TIER PCP - Assigned PCP 08/18/16 01/05/19 No Ref-Primary, Physician PCP - General 12/08/24 Jolie Mandel APRN COIL TIER Assigned PCP 08/18/16 05/31/22 [place] [address] [place] [address] Assigned PCP 12/26/24 documented as of this encounter
--- OUTSIDE RECORDS SUMMARY | 2025-03-24 14:54 | XMS_ITS | Encounter Summary ---
Author Organization [place] Address [address] [place] [address] Care Team Providers Care Level Glass Vial Filler Name Role Phone Jolie Mandel APRN, CNP Primary Care Provi leon Unavailable TequilaJolie APRN QUALITY CONSULTANT Unavailable Un available TequilaJolie APRN QUALITY CONSULTANT Unavailable Un available No Ref-Primary, Physician Primary Care Provider Hemant Patel MD Unavailable Reason for Visit * Reason Onset Date Comments MyChart Communication 10/31/2016 uti Encounter Details Date Type Department Care Team (Latest Contact Info) Description 10/31/2016 MyC Medical Advice [address] [phone] Jolie Mandel APRN CNP MyChart [...] Sex Assigned at Female 12/03/2024 9:09 AM SAW OFFBEARER Legal Sex Female 4:05 AM SAW OFFBEARER Gender Identity Female 12/03/2024 9:09 AM SAW OFFBEARER Sexual Orientation Straight 12/03/2024 9: 09 AM SAW OFFBEARER documented as of this encounter Miscellaneous Notes * Telephone Encounter - Cari Watt RN - 10/31/2016 3:44 PM CST Sent [employer] response, see below Cari Watt RN, BSN Message handled by Nurse Triage. OFFBEARER documented in this encounter Plan of Treatment Upcoming Encounters Date Type Department Care Team (Late st Contact Info) Description 03/31/2025 4:30 PM CDT Virtual Visit [facility] [address] [place] [phone] [place] Pat[place] [id number] [place] [phone] 07/11/2025 10:00 AM CDT Virtual Visit [facility] [address] [place] [phone] [place] [address] [place] [address] documented as of this encounter Visit Diagnoses Not on filedocumented in this encounter Additional Health Concerns Assessment Noted Time PHQ-9 Depression Total Score: 21 016 7:22 AM CDT documented as of this encounter Care Teams Level Glass Vial Filler Relationship Specialty Start Date End Date Jolie Mandel APRN QUALITY CONSULTANT PCP - General Nurse Practitioner 02/27/17 10/09/23 Jolie Mandel APRN QUALITY CONSULTANT PCP - Assigned PCP 08/18/16 01/05/19 No Ref-Primary, Physician PCP - General 12/08/24 Jolie Mandel APRN QUALITY CONSULTANT Assigned PCP 08/18/16 05/31/22 Hemant Patel [place] [id number] [place] [address] Assigned PCP 12/26/24 documented as of this encounter
--- OUTSIDE RECORDS SUMMARY | 2025-03-24 14:54 | XMS_ITS | Encounter Summary ---
Author Organization [place] Address [address] [place] [address] Care Team Providers Care Emergency Medicine Name Role Phone Tequila, Jolie Foley APRN TUNNEL DRIER OPERATOR Primary Care Provi elon Unavailable Tequila, Jolie Foley APRN TUNNEL DRIER OPERATOR Unavailable Un available Tequila, Jolie Foley APRN TUNNEL DRIER OPERATOR Unavailable Un available No Ref-Primary, Physician Primary Care Provider Hemant Patel MD Unavailable Encounter Details Date Type Department Care Team (Late st Contact Info) Description 01/08/2013 MyC Medical Advice [address] [phone] Soniya Queen MD [address] [place] [phone] Social History Tobacco Use Types Packs/Day Years Used Date Smoking Tobacco: Every Day Cigarettes 1 3 Started: 08/03/2008; Last attempted to quit: 08/03/2011 Smokeless Tobacco: Never Alcohol Use Standard Drinks/Week Comments No 0 (1 standard drink = 0.6 oz pur e alcohol) Comments No Sex and Gender Information Value Date Recorded Sex Assigned at Female 12/03/2024 9:09 AM PHYSICAL THERAPIST CENTER MANAGER Legal Sex Female 4:05 AM PHYSICAL THERAPIST CENTER MANAGER Gender Identity Female 12/03/2024 9:09 AM PHYSICAL THERAPIST CENTER MANAGER Sexual Orientation Straight 12/03/2024 9: 09 AM PHYSICAL THERAPIST CENTER MANAGER documented as of this encounter Plan of Treatment Upcoming Encounters Date Type Department Care Team (Late st Contact Info) Description 03/31/2025 4:30 PM CDT Virtual Visit [facility] [address] [place] [phone] [place] [address] [place], [place] [phone] 07/11/2025 10:00 AM CDT Virtual Visit [facility] [address] [place] [phone] [place] [address] [place], [place] [phone] documented as of this encounter Visit Diagnoses Not on filedocumented in this encounter Care Teams Emergency Medicine Relationship Specialty Start Date End Date Jolie Mandel APRN TUNNEL DRIER OPERATOR PCP - General Nurse Practitioner 02/27/17 10/09/23 Jolie Mandel APRN TUNNEL DRIER OPERATOR PCP - Assigned PCP 08/18/16 01/05/19 No Ref-Primary, Physician PCP - General 12/08/24 Jolie Mandel APRN TUNNEL DRIER OPERATOR Assigned PCP 08/18/16 05/31/22 [place] [address] [place] [address] Assigned PCP 12/26/24 documented as of this encounter
--- OUTSIDE RECORDS SUMMARY | 2025-03-24 14:54 | XMS_ITS | Encounter Summary ---
Author Organization [place] Address [facility] [place] [address] Care Team Providers Care Handle Finisher Name Role Phone No Ref-Primary, Physician Primary Care Provider Hemant Patel MD Unavailable Encounter Details Date Type Department Care Team (Late st Contact Info) Description 01/14/2025 MyC Medical Advice [address] [phone] Shira Roe Social History Tobacco Use Types Packs/Day Years [...] Sex Assigned at Female 12/03/2024 9:09 AM WATER ANALYST Legal Sex Female 4:05 AM WATER ANALYST Gender Identity Female 12/03/2024 9:09 AM WATER ANALYST Sexual Orientation Straight 12/03/2024 9: 09 AM WATER ANALYST documented as of this encounter Plan of Treatment Upcoming Encounters Date Type Department Care Team (Late st Contact Info) Description 03/31/2025 4:30 PM CDT Virtual Visit [facility] [address] [place] [phone] [place] [address] [place] [address] 07/11/2025 10:00 AM CDT Virtual Visit [address] [phone] [place] [address] [place] [address] documented as of this encounter Visit Diagnoses Not on filedocumented in this encounter Additional Health Concerns Assessment Noted Time PHQ-9 Depression Total Score: 10 025 11:25 AM WATER ANALYST documented as of this encounter Care Teams Handle Finisher Relationship Specialty Start Date End Date No Ref-Primary, Physician PCP - General 12/08/24 Hem[place] Patel [place] [id number] [place] [phone] Assigned PCP 12/26/24 documented as of this encounter
--- OUTSIDE RECORDS SUMMARY | 2025-03-24 14:54 | XMS_ITS | Clinical Summary ---
Author Organization [facility] Address [address] [place] [address] Care Team Providers Care Accounts Payable Bookkeeper Name Role Phone Edu Fairchild MD Primary Care Provider [phone] Dorothy Schuler MD Unavailable [phone] Allergies No known active allergies Medications medication order composerIndicati ons:Chronic fatigue Homeopathy through Chiropractor's Office 07/08/20 24 Active naltrexone LOW DOSE oral custom compoundIndicati ons:Chronic fatigue,Other chronic pain,Hypothyroid ism due to Dwayne's thyroiditis Low-dose naltrexone 4.5 mg tablet: Take 1 capsule by mouth in the morning. Dispense #90 tablets, 3 refills. 90 Each 3 12/07/19 25 Active iron,carbonyl-vi tamin C (Vitron-C) 65 mg iron- 125 mg Delayed-Release tabletIndication s:History of iron deficiency Take 1 Tablet by mouth once daily. 90 Tablet 3 12/07/19 25 Active medication order composerIndicati ons:Uses control Mirena IUD - September 2024 12/07/19 25 Active cetirizine (ZYRTEC) 10 mg tabletIndication s:History of environmental allergies Take 1 tablet twice daily. 90 Tablet 3 12/07/19 25 Active famotidine (PEPCID) 20 mg tabletIndication s:Dyspepsia Take 1 Tablet (20 mg) by mouth two times daily. 180 Tablet 3 12/07/19 25 Active ondansetron (ZOFRAN) 4 mg tabletIndication s:Nausea TAKE ONE TABLET BY MOUTH EVERY 8 HOURS NEEDED FOR NAUSEA AND VOMITING 90 Tablet 1 12/27/19 25 Active lisdexamfetamine (Vyvanse) 70 mg capsuleIndicatio ns:Attention deficit hyperactivity disorder (ADHD), unspecified ADHD type Take 1 Capsule (70 mg) by mouth once daily in the morning. 01/11/20 25 Active dextroamphetamin e-amphetamine (AdderalL) 20 mg tabletIndication s:Attention deficit hyperactivity disorder (ADHD), unspecified ADHD type Utilizes as needed. 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 30 Tablet 5 01/28/20 25 025 Discontin ued(Reord er (E-cancel not sent)) Active Problems Patient Care Coordination No te Formatting of this note migh t be different from the original. Per MPP: I recommend a targeted US at 20 weeks and growth US at 28 and 34 W. Third trimester surveillance (BPPs/NSTs) may be helpful with maternal- bonding. Problem Noted Date Diagnosed Date [facility] Supervision of high-risk Overview (11/20/2020): [facility] CONSULTATION ON 11/27/20 REASON FOR CONSULT: Drug abuse in first trimester; currently on Ablilify TODAY'S APPOINTMENT: MD and GC Consultation PRIMARY DIAGNOSIS: 30 y.o. Estimated Date of Delivery: 05/24/21 Depression PTSD Anxiety ADHD Hx polysubstance abuse-Adderall, alcohol, marijuana; drug abuse in first trimester Hx anorexia (2016) Daily vapor Thyroid disease Term C/S x2 LAST GROWTH: 11/07/20 11w5d REFERRING PHYSICIAN/PHONE/LAST UPDATE: Joshua To [facility] [phone] Primary MD approves scheduling of recommended ultrasounds/testing: Yes SPECIALISTS/CONSULTS: Therapist? Include: Specialty MD Clinic Name Phone# [place] and ADDED TO PATIENT CARE TEAM Yes CARE COORDINATION: GENETICS: declined PROCEDURES: PERTINENT LABS: Labs reviewed? Yes Normal? Yes 11/15/20: TSH 2.74, T4 8.1, T3, total 100 PERTINENT MEDS: Abilify Trazodone Synthroid Cytomel Preferred delivery location: [facility] [place] PLAN OF CARE: PTSD (post-traumatic stress disorder) 10/18/2020 Current every day nicotine vaping 10/18/2020 Supervision of high risk in second tri mester 10/18/2020 Thyroid disease during in second trime ster 10/18/2020 High risk due to m aternal drug abuse in first trimester 10/18/2020 Overview (11/15/2020): Adderal, alcohol 11/15/20: 2 hrs/week DVT in group, 1 hr individual therapy. 2 AA meetings/week Insomnia, idiopathic 05/14/2020 Overview (10/18/2020): Uses trazadone Zinc deficiency 02/18/2020 Polysubstance abuse 12/25/2016 Overview (10/18/2020): Polysubstance abuse - adderall, alcohol, marijuana Outpatient treatment dealing with drug abuse and emotional issue. History of anorexia nervosa 08/13/2016 Overview (10/18/2020): corina 2016 after of second child. Doing well. 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 Learning to live without ADHD medications. Resolved Problems Problem Noted Date Diagnosed Date Resolved Date Dwayne's thyroiditis 02/18/202010/03 Low ferritin level 02/18/2020 0 Slow transit constipation 11/05/2016 Goiter 07/19/2015 10/18/2020 Encounters Date Type Department Care Team Description 03/15/2025 Orders Only [facility] [address] [address] Elsa Romero MD <No scans attached> 03/15/2025 Orders Only [place] [address] [place] [phone] Corinne Veronica NP <No scans attached> 03/14/2025 E-Visit [facility] [address] [address] Elsa Romero MD Thyroid 03/09/2025 11:45 AM CDT Telemedicine [facility] [address] [place] [address] Corinne Veronica NP Telehealth; Follow Up 03/09/2025 Travel 03/04/2025 Travel 03/01/2025 9:45 AM CDT Ancillary Procedure [facility] [address] [facility] [address] [place] [address] 03/01/2025 9:40 AM CDT Ancillary Procedure [facility] [address] [facility] [address] [place] [address] 03/01/2025 9:35 AM CDT Ancillary Procedure [facility] [address] [facility] [address] [place] [address] 03/01/2025 8:30 AM CDT Office Visit [facility] [address] [place] [address] Dorothy Schuler MD Consult (History of Lyme disease, Polyarthralgia, Other chronic pain, Chronic fatigue, 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 /) 02/28/2025 Travel 02/09/2025 3:00 PM CDT Telemedicine [facility] [address] [place] [address] Fernando Harding, PhD, LP 02/09/2025 8:30 AM CDT Telemedicine [facility] [address] [place] [address] Corinne Veronica NP Telehealth; Consult 02/04/2025 Travel 01/31/2025 8:30 AM CDT [facility] [address] [place] [address] Fernando Harding, PhD, LP Neuropsychological Assessment 01/31/2025 Travel 01/27/2025 3:05 PM CDT Office Visit [facility] [address] [address] Elsa Romero MD Consult (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) 01/26/2025 Travel 2025 Telephone [facility] [address] [place] [address] Rashmi Lees PA Referral 01/10/2025 1:00 PM CDT Telemedicine [facility] [address] [facility] [address] Rashmi Lees PA Follow Up; Telehealth 01/10/2025 Travel 01/07/2025 8:45 AM ANIM[employer] ENFORCEMENT OFFICER Orders Only [facility] [address] [facility] [address] [place] [address] Lab, Tony Lab 01/07/2025 Travel 12/26/2024 Refill [facility] [address] [facility] [address] Rashmi Lees PA Refill Request (Ondansetron) from Last 3 Months Immunizations Immunization Administration Dates Next Due DTP 09/21/1990 DTP-HIB 08/07/1993 HIB PRP-T (ActHIB,Hiberix) 09/21/1990 HPV 9 (Gardasil 9) 04/06/2008,09/25/2007, 007 Hepatitis B, Unspecified 01/27/2002,04/20/2001,0 03/18/2001 Human Papilloma Virus Vaccine 04/06/2008, 007,06/26/2007 Influenza Virus, Unspecified 08/13/2012,09/03/20 11,08/15/2010 Influenza, IIV3 (Age 6-35 mos) 08/13/2012 Influenza, IIV3 (Age >=3 years) 09/03/2011,08/15 Influenza, IIV4 09/29/2020 MMR 03/18/2001,05/08/1990 Meningococcal Vaccine (Menactra) 06/26/2007 Oral Polio Vaccine 08/07/1993,09/21/1990 TD, UNSPECIFIED 12/14/2015 Td (Age >=7 Years) 06/29/2003 Td, Preservative Free (age >= 7 Years) 3 Tdap 12/14/2015,03/20/2012 Tuberculin Skin Test, Unspecified 08/01/2009,06/2009 Family History Medical History Relation Name Comments Alcoholism Brother Bipolar disorder Brother Drug Abuse Brother Suicide Attempts Brother suicide age 21 Good Health Father Alcoholism Half-Brother 1 Drug Abuse Half-Brother 1 Good Health Half-Brother 2 Good Health Half-Brother 3 Good Health Half-Sister Heart attack Maternal Grandfather Good Health Maternal Grandmother Anxiety disorder Mother Depression Mother Psoriasis Mother Heart Disease Paternal Grandfather Glaucoma Paternal Grandmother Relation Name Status Comments Brother Father Alive Half-Brother 1 Alive Half-Brother 2 Alive Half-Brother 3 Alive Half-Sister Alive Maternal Grandfather Maternal Grandmother Alive Mother Alive Paternal Grandfather Alive Paternal Grandmother Alive Social History Tobacco Use Types Packs/Day Years Used Date Smoking Tobacco: Former Cigarettes 0.3 10 0 11/03/2018 - 09/15/2020 Smokeless Tobacco: Never Tobacco Cessation:Counseling Given: Not Answered Alcohol Use Standard Drinks/Week Comments Not Currently 0 (1 standard drink = 0.6 oz pur e alcohol) sober since 08/23/20 PHQ-2 Answer Date Recorded PHQ-2 TOTAL SCORE 4 10/18/2020 Social Connections Answer Date Recorded Do you often feel lonely or isolated from those around you? 0 02/07/2024 Financial Resource Strain Answer Date R ecorded Difficulty of Paying Living Expenses 3 02/12/2024 Difficulty of Paying Living Expenses Not on file 02/12/2024 Food Insecurity Answer Date Recorded Do you worry your food will run out before you are able to buy more? 1 02/07/2024 Transportation Needs Answer Date Record ed Does lack of transportation keep you from medica l appointments? 1 02/07/2024 Does lack of transportation keep you from work, meetings or getting things that you need? 1 02/07/2024 Housing Stability Answer Date Recorded What is your housing situation today? 1 02/07/2024 Utilities Answer Date Recorded Do you have trouble paying f or utilities (for example, heat, electricity, water, phone)? 1 02/07/2024 Comments No Sex and Gender Information Value Date Recorded Sex Assigned at Female 05/05/2020 8:00 AM CDT Legal Sex Female 8:28 AM [employer] OFFICER Gender Identity Female 05/05/2020 8:00 AM CDT Sexual Orientation Straight 05/05/2020 8: 00 AM CDT Obstetrics History Para Term AB IAB SAB Ectopic Multiple Livin g Live Births 4 2 2 1 2 2 Date Outcome GA Total Labor Labor/2nd/3rd Weight Sex Type Anes PTL Karol A1 A5 Name Clin 9 AB ELECTI VE AB 2011 Term 39w 0d 8h 00m 3.35 kg (7 lb 6 oz) F C-Sect ion Livin g Cheri Delivery Location:[facility] Comments:FTP 2015 Term 39w 0d 3.4 kg (7 lb 8 oz) F C-Sect ion Livin g Kathy Delivery Location:[facility] Last Filed Vital Signs Vital Sign Reading Time Taken Comments Blood Pressure 92/62 03/01/2025 8:26 AM CDT Pulse 93 03/01/2025 8:26 AM CDT Temperature 36.8 C (98.2 F) 09/29/2020 9:04 AM [employer] OFFICER Respiratory Rate - - Oxygen Saturation 97% 03/01/2025 8:26 AM CDT Inhaled Oxygen Concentration - - Weight 60.5 kg (133 lb 4.8 oz) 03/01/2025 8:26 A M CDT Height 164.5 cm (5' 4.75) 03/01/2025 8:26 AM CD T Body Mass Index 22.35 03/01/2025 8:26 AM CDT Plan of Treatment Upcoming Encounters Date Type Department Care Team (Late st Contact Info) Description 03/29/2025 11:45 AM CDT Telemedicine [facility] [address] [place] [phone] Corinne Veronica, ALEKS [address] [place], [place] [phone] 04/12/2025 8:45 AM CDT Appointment [facility] [address] [place] [address] Francheska Alcaraz OT [address] [place] [address] 04/13/2025 10:00 AM CDT Office Visit [facility] [address] [address] [place] [address] [place] [address] 04/20/2025 2:00 PM CDT Telemedicine [facility] [address] [place] [address] Corinne Veronica, ALEKS [address] [place] [address] 05/02/2025 3:30 PM CDT Office Visit [facility] [address] [address] [place] [address] [place] [address] Health Maintenance Due Date Last Done Comments Depression screening for age 12+ 2001 Pap test for age 21-65 06/14/2024 , 06/14/2021, 09/14/2018 (Verified in Care Everywhere or Patient Record) COVID-19 vaccine series ( season) 2024 06/08/2021 Influenza Vaccine (Season Ended) 2025 09/29/2020, 08/13/2012, 08/13/2012, Additional history exists Tetanus booster 12/14/2025 12/14/2015, 12/04, 03/20/2012, Additional history exists BMI (ht and wt on same day) for age 18+ 03/01/2026 03/01/2025, 12/11/2020, 11/15/2020, Additional history exists Hepatitis B series for 19+ Completed 01/27, 04/20/2001, 03/18/2001 Tdap Completed 12/14/2015, 03/20/2012 HIV for age 15-65 Completed 11/15/2020, 05/09/2020 Hepatitis C screening for age 18-79 Completed 11/15/2020, 05/09/2020 Pneumococcal series for age 6-49 Aged Out No longer eligible based on patient's age to complete this topic Procedures Procedure Name Priority Date/Time Associated Diagnosis Comments TSH Routine 03/09/2025 7:49 AM CDT 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 T4,FREE Routine 03/09/2025 7:49 AM CDT 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 T3,FREE Routine 03/09/2025 7:49 AM CDT 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 VITAMIN B12 Routine 03/09/2025 7:49 AM CDT History of iron deficiency History of pernicious anemia FERRITIN Routine 03/09/2025 7:49 AM CDT History of iron deficiency History of pernicious anemia IRON PLUS IRON BINDING CAP Routine 03/09 7:49 AM CDT History of iron deficiency History of pernicious anemia XR HIP 1 VIEW W PELVIS BILAT Routine 03/01/2025 9:55 AM CDT Polyarthralgia XR HAND 2 VIEWS BILATERAL Routine 2024 9:55 AM CDT Polyarthralgia XR FOOT 2 VIEWS STANDING BILATERAL Routine 03/01/2025 9:54 AM CDT Polyarthralgia COMP METABOLIC PANEL Routine 03/01/2025 9:24 AM CDT Polyarthralgia WA BLOOD COUNT COMPLETE AUTO&AUTO DIFRNTL WBC Routine 03/01/2025 9:24 AM CDT Polyarthralgia C-REACTIVE PROTEIN Routine 03/01/2025 9: 24 AM CDT Polyarthralgia SEDIMENTATION RATE Routine 03/01/2025 9: 24 AM CDT Polyarthralgia HLA B 27 DISEASE ASSOCIATION Routine 03/01/2025 9:24 AM CDT Polyarthralgia CK TOTAL Routine 03/01/2025 9:24 AM CDT Polyarthralgia T3,FREE Routine 01/27/2025 3:35 PM CDT 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 T4,FREE Routine 01/27/2025 3:35 PM CDT 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 TSH Routine 01/27/2025 3:35 PM CDT 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 THYROPEROXIDASE ANTIBODY Routine 025 3:35 PM CDT 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 DHEA-SULFATE (DHEA-S) Routine 01/27/2025 3:35 PM CDT Adrenal insufficiency (HC) ADRENOCORTICOTROPIC HORMONE (ACTH) PLASMA Routine 01/27/2025 3:35 PM CDT Adrenal insufficiency (HC) CORTISOL TOTAL Routine 01/27/2025 3:35 PM CDT Adrenal insufficiency (HC) T3,FREE Routine 01/07/2025 8:41 AM [employer] OFFICER Chronic fatigue 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 T4,FREE Routine 01/07/2025 8:41 AM [employer]CEMENT OFFICER Chronic fatigue 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 TSH Routine 01/07/2025 8:41 AM [employer] E[employer]CEMENT OFFICER Chronic fatigue 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 HOMOCYSTEINE,TOTAL Routine 01/07/2025 8: 41 AM [employer]CEMENT OFFICER Chronic fatigue History of pernicious anemia VITAMIN B12 Routine 01/07/2025 8:41 AM [employer]CEMENT OFFICER Chronic fatigue History of pernicious anemia FERRITIN Routine 01/07/2025 8:41 AM [employer]CEMENT OFFICER Chronic fatigue History of iron deficiency IRON PLUS IRON BINDING CAP Routine 01/07 8:41 AM [employer]CEMENT OFFICER Chronic fatigue History of iron deficiency STOCK ASSOCIATE THIN PREP PAP SCREEN IMAGED Routine 06/14/2021 3:00 PM CDT ANTI HIV 1/2 Routine 11/15/2020 12:00 PM [employer] OFFICER Encounter for supervision of other normal in first trimester (HC) ANTI HCV Routine 11/15/2020 12:00 PM [employer]CEMENT OFFICER Encounter for supervision of other normal in first trimester (HC) from Last 3 Months or Most Recently Relevant to Health Maintenance Results * (ABNORMAL) TSH (03/09/2025 7:49 AM CDT) Only the most recent of3 resultswithin the time period is included. TSH 11.36(H) mIU/L [facility] Comment: Reference Range > or = 20 Years 0.40-4.50 Ranges First trimester 0.26-2.66 Second trimester 0.55-2.73 Third trimester 0.43-2.91 Blood BLOOD SPECIMEN / Unknown 03/09/2025 7:49 AM CDT 03/09/2025 7:49 AM CDT Narrative [facility] - 03/10/2025 5:20 AM CDT FASTING:YES FASTING: YES us Corinne Veronica NP CHEMISTRY Final Result [facility] [address] [place] [address], [facility] [address] [place] [address] * (ABNORMAL) IRON PLUS IRON BINDING CAP (03/09/2025 7:49 AM CDT) Only the most recent of2 resultswithin the time period is included. Pathologist [facility] IRON, TOTAL 201(H) 40 - 190 mcg/dL [facility] IRON BINDING CAPACITY 265 250 - 450 mcg/dL (calc) [facility] % SATURATION 76(H) 16 - 45 % (calc) [facility] Blood BLOOD SPECIMEN / Unknown 03/09/2025 7:49 AM CDT 03/09/2025 7:49 AM CDT Narrative [facility] - 03/10/2025 4:00 AM CDT FASTING:YES FASTING: YES Corinne Veronica CHOCOLATE DIPPER CHEMISTRY Final Result Performing Organization Address [facility] Co de Phone Number [employer] [facility] [address] [place] [address], [place] [phone] [facility] [address] [place] [address] * T3,FREE (03/09/2025 7:49 AM CDT) Only the most recent of3 resultswithin the time period is included. [facility] T3, FREE 2.6 2.3 - 4.2 pg/mL [facility] Blood BLOOD SPECIMEN / Unknown 03/09/2025 7:49 AM CDT 03/09/2025 7:49 AM CDT Narrative [facility] - 03/10/2025 5:20 AM CDT FASTING:YES FASTING: YES Corinne Veronica CHOCOLATE DIPPER CHEMISTRY Final Result Performing Organization Address [facility]/ZIP Co de Phone Number [employer] [facility] [address] [place] [address], [place] [phone] [facility] [address] [place] [address] * T4,FREE (03/09/2025 7:49 AM CDT) Only the most recent of3 resultswithin the time period is included. [facility] T4, FREE 0.8 0.8 - 1.8 ng/dL [facility] Blood BLOOD SPECIMEN / Unknown 03/09/2025 7:49 AM CDT 03/09/2025 7:49 AM CDT Narrative [facility] - 03/10/2025 5:20 AM CDT FASTING:YES FASTING: YES Corinne Veronica CHOCOLATE DIPPER CHEMISTRY Final Result Performing Organization Address [facility] Co de Phone Number [facility] [address] [place] [address], [facility] [address] [place] [address] * FERRITIN (03/09/2025 7:49 AM CDT) Only the most recent of2 resultswithin the time period is included. Pathologist [facility] FERRITIN 39 16 - 154 ng/mL [facility] Blood BLOOD SPECIMEN / Unknown 03/09/2025 7:49 AM CDT 03/09/2025 7:49 AM CDT Narrative [facility] - 03/10/2025 5:20 AM CDT FASTING:YES FASTING: YES Corinne Veronica CHOCOLATE DIPPER CHEMISTRY Final Result Performing Organization Address [facility] Co de Phone Number [facility] [address] [place] [phone], [facility] [address] [place] [address] * VITAMIN B12 (03/09/2025 7:49 AM CDT) Only the most recent of2 resultswithin the time period is included. [facility] VITAMIN B12 740 200 - 1,100 pg/mL [facility] Blood BLOOD SPECIMEN / Unknown 03/09/2025 7:49 AM CDT 03/09/2025 7:49 AM CDT Narrative [facility] - 03/10/2025 5:20 AM CDT FASTING:YES FASTING: YES Corinne Veronica NP CHEMISTRY Final Result [facility] [address] [place] [address], [facility] [address] [place] [address] * XR HIP 1 VIEW W PELVIS BILAT (03/01/2025 9:55 AM CDT) Anatomical Region Laterality Modality HIPS, HIPL, HIPR, Pelvis Digital Radiography 03/01/2025 3:50 PM CDT Narrative 03/01/2025 3:50 PM CDT For Patients: As a result of the Cures Act, medical imaging exams and procedure reports are released immediately into your electronic medical record. You may view this report before your referring provider. If you have questions, please contact your health care provider. Indication: Polyarthralgia. Technique: Pelvis one view and bilateral hips one view. Comparison: None. Impression: The hips and SI joints are unremarkable. Normal mineralization. No fractures. IUD. Dictated by Javier Dillard MD @ Mar 01 2025 3:50PM (Electronically Signed) [email or web address] Procedure Note Javier Dillard MD - 03/01/2025 For Patients: As a result of the Cures Act, medical imagingexams and procedure reports are released immediately into your electronicmedical record. You may view this report before your referring provider.If you have questions, please contact your health care provider. Indication: Polyarthralgia. Technique: Pelvis one view and bilateral hips one view. Comparison: None. Impression: The hips and SI joints are unremarkable. Normal mineralization. Nofractures. IUD. Dictated by Javier Dillard MD @ Mar 01 2025 3:50PM (Electronically Signed) [email or web address] Dorothy Schuler MD GENERAL IMAGING Fin al Result * XR HAND 2 VIEWS BILATERAL (03/01/2025 9:55 AM CDT) Anatomical Region Laterality Modality HAND L, HAND R, HANDS Digital Ra diography 03/01/2025 3:48 PM CDT Narrative 03/01/2025 3:48 PM CDT For Patients: As a result of the s Act, medical imaging exams and procedure reports are released immediately into your electronic medical record. You may view this report before your referring provider. If you have questions, please contact your health care provider. Indication: Polyarthralgia. Technique: Bilateral hands, two views Comparison: None. Impression: Normal mineralization. No erosions. No joint space narrowing. No soft tissue swelling. No chondrocalcinosis. Dictated by Javier Dillard MD @ Mar 01 2025 3:48PM (Electronically Signed) [email or web address] Procedure Note Javier Dillard MD - 03/01/2025 For Patients: As a result of the s , medical imagingexams and procedure reports are released immediately into your electronicmedical record. You may view this report before your referring provider.If you have questions, please contact your health care provider. Indication: Polyarthralgia. Technique: Bilateral hands, two views Comparison: None. Impression: Normal mineralization. No erosions. No joint space narrowing. No softtissue swelling. No chondrocalcinosis. Dictated by Javier Dillard MD @ Mar 01 2025 3:48PM (Electronically Signed) [email or web address] Dorothy Schuler MD GENERAL IMAGING Fin al Result * XR FOOT 2 VIEWS STANDING BILATERAL (03/01/2025 9:54 AM CDT) Anatomical Region Laterality Modality KNEES Digital Radiogra phy 03/01/2025 3:49 PM CDT Narrative 03/01/2025 3:49 PM CDT For Patients: As a result of the s Act, medical imaging exams and procedure reports are released immediately into your electronic medical record. You may view this report before your referring provider. If you have questions, please contact your health care provider. Indication: Polyarthralgia. Technique: Bilateral foot, two views Comparison: None. Impression: Normal mineralization. No erosions. No joint space narrowing. No soft tissue swelling. Bunion deformity of the great toes. Dictated by Javier Dillard MD @ Mar 01 2025 3:49PM (Electronically Signed) [email or web address] Procedure Note Javier Dillard MD - 03/01/2025 For Patients: As a result of the Century Cures Act, medical imagingexams and procedure reports are released immediately into your electronicmedical record. You may view this report before your referring provider.If you have questions, please contact your health care provider. Indication: Polyarthralgia. Technique: Bilateral foot, two views Comparison: None. Impression: Normal mineralization. No erosions. No joint space narrowing. No softtissue swelling. Bunion deformity of the great toes. Dictated by Javier Dillard MD @ Mar 01 2025 3:49PM (Electronically Signed) [email or web address] Dorothy Schuler MD GENERAL IMAGING Fin al Result * SEDIMENTATION RATE (03/01/2025 9:24 AM CDT) SED RATE BY MODIFIED DAGOBERTOREN 2 < OR = 20 mm/h [employer] [facility] [place] Blood BLOOD SPECIMEN / Unknown 03/01/2025 9:24 AM CDT 03/01/2025 9:25 AM CDT Dorothy Schuler MD HEMATOLOGY Fin al Result [employer] [facility] [address] [place] [address], [place] [phone] [employer] [address] [place] [address] * HLA B 27 DISEASE ASSOCIATION (03/01/2025 9:24 AM CDT) HLA B27 Negative Negative [employer]/ [employer] [facility] Comment: HLA B27 RESULTS REVIEWED BY see note [employer]/ [employer] [facility] Comment: Tanisha Henning, Ph.D., [facility] Tile Layer Supervisor, Molecular Oncology The B27 allele group of the HLA-B locus is present in 2 to 9% of the general population. About 20% of HLA-B27 carriers develop autoimmune disorders including Ankylosing Spondylitis (), Reactive Arthritis, Psoriatic Arthritis, Undifferentiated Oligoarthritis, Uveitis, or Inflammatory Bowel Disease. The highest association is with , where approximately 95% of patients are HLA-B27 positive. Genetic counseling as needed. Typing performed by PCR and hybridization with sequence specific oligonucleotide probes (SSO) using the FDA-cleared LABType(R) SSO Kit. Blood BLOOD SPECIMEN / Unknown 03/01/2025 9:24 AM CDT 03/01/2025 9:25 AM CDT Dorothy Schuler MD SEND OUTS Fin al Result Performing Organization Address City/[facility]/ZIP Co de Phone Number [employer]/[address] , [employer] [address] * C-REACTIVE PROTEIN (03/01/2025 9:24 AM CDT) Pathologist [facility] C-REACTIVE PROTEIN <3.0 <8.0 mg/L [facility] Blood BLOOD SPECIMEN / Unknown 03/01/2025 9:24 AM CDT 03/01/2025 9:25 AM CDT Dorothy Schuler MD CHEMISTRY Fin al Result [employer] [address] [address], [employer] [place] [address] [place] [address] * CBC AND DIFFERENTIAL (03/01/2025 9:24 AM CDT) WHITE BLOOD CELL COUNT 6.5 3.8 - 10.8 Thousand/u L [facility] ( RED BLOOD CELL COUNT 4.61 3.80 - 5.10 Million/uL [facility] ( HEMOGLOBIN 14.2 11.7 - 15.5 g/dL [facility] ( HEMATOCRIT 41.5 35.0 - 45.0 % [facility] ( MCV 90.0 80.0 - 100.0 fL [facility] ( MCH 30.8 27.0 - 33.0 pg [facility] ( MCHC 34.2 32.0 - 36.0 g/dL [facility] ( Comment: For adults, a slight decrease in the calculated MCHC value (in the range of 30 to 32 g/dL) is most likely not clinically significant; however, it should be interpreted with caution in correlation with other red cell parameters and the patient's clinical condition. RDW 12.8 11.0 - 15.0 % [facility] ( PLATELET COUNT 257 140 - 400 Thousand/u L [facility] ( MPV 10.0 7.5 - 12.5 fL [facility] ( ABSOLUTE NEUTROPHILS 3,718 1,500 - 7,800 cells/uL [facility] ( ABSOLUTE LYMPHOCYTES 2,080 850 - 3,900 cells/uL [facility] ( ABSOLUTE MONOCYTES 527 200 - 950 cells/uL [facility] ( ABSOLUTE EOSINOPHILS 156 15 - 500 cells/uL [facility] ( ABSOLUTE BASOPHILS 20 0 - 200 cells/uL [facility] ( NEUTROPHILS 57.2 % [facility] ( LYMPHOCYTES 32.0 % [facility] ( MONOCYTES 8.1 % [facility] ( EOSINOPHILS 2.4 % [facility] ( BASOPHILS 0.3 % [facility] ( Blood BLOOD SPECIMEN / Unknown 03/01/2025 9:24 AM CDT 03/01/2025 9:25 AM CDT Dorothy Schuler MD HEMATOLOGY Fin al Result [facility] [address] [place] [address], [facility] ( [address] [place] [address] * CK TOTAL (03/01/2025 9:24 AM CDT) CREATINE KINASE, TOTAL 189 20 - 239 U/L [facility] Blood BLOOD SPECIMEN / Unknown 03/01/2025 9:24 AM CDT 03/01/2025 9:25 AM CDT Dorothy Schuler MD CHEMISTRY Fin al Result Performing Organization Address City/[facility]/ZIP Co de Phone Number [facility] [email or web address] [facility] [address] [place] [address], [place] [phone] [facility] [address] [place] [address] * (ABNORMAL) COMP METABOLIC PANEL (03/01/2025 9:24 AM CDT) GLUCOSE 71 65 - 99 mg/dL [facility] Comment: Fasting reference interval UREA NITROGEN (BUN) 11 7 - 25 mg/dL [facility] CREATININE 1.04(H) 0.50 - 0.97 mg/dL [facility] EGFR 71 > OR = 60 mL/min/1.7 3m2 [facility] BUN/CREATININE RATIO 11 6 - 22 (calc) [facility] SODIUM 140 135 - 146 mmol/L [facility] POTASSIUM 4.3 3.5 - 5.3 mmol/L [facility] CHLORIDE 104 98 - 110 mmol/L [facility] CARBON DIOXIDE 29 20 - 32 mmol/L [facility] CALCIUM 9.5 8.6 - 10.2 mg/dL [facility] PROTEIN, TOTAL 6.9 6.1 - 8.1 g/dL [facility] ALBUMIN 4.6 3.6 - 5.1 g/dL [facility] GLOBULIN 2.3 1.9 - 3.7 g/dL (calc) [facility] ALBUMIN/GLOBULIN RATIO 2.0 1.0 - 2.5 (calc) [facility] BILIRUBIN, TOTAL 0.5 0.2 - 1.2 mg/dL [facility] ALKALINE PHOSPHATASE 60 31 - 125 U/L [facility] AST 29 10 - 30 U/L [facility] ALT 23 6 - 29 U/L [facility] Blood BLOOD SPECIMEN / Unknown 03/01/2025 9:24 AM CDT 03/01/2025 9:25 AM CDT Dorothy Schuler MD CHEMISTRY Fin al Result [facility] [address] [place] [address], [facility] [address] [place] [address] * CORTISOL TOTAL (01/27/2025 3:35 PM CDT) [facility] CORTISOL, TOTAL 7.0 mcg/dL [facility] Comment: Reference Range: For 8 a.m.(7-9 a.m.) Specimen: 4.0-22.0 Reference Range: For 4 p.m.(3-5 p.m.) Specimen: 3.0-17.0 * Please interpret above results accordingly * Blood BLOOD SPECIMEN / Unknown 01/27/2025 3:35 PM CDT 01/27/2025 3:36 PM CDT Elsa Romero MD CHEMISTRY Final Result Performing Organization Address [facility]/ZIP Co de Phone Number [facility] [address] [place] [address], [facility] [address] [place] [address] * ADRENOCORTICOTROPIC HORMONE (ACTH) PLASMA (01/27/2025 3:35 PM CDT) ACTH, PLASMA 9 6 - 50 pg/mL [facility], Comment: Reference range applies only to the specimens collected between 7am-10am. Blood BLOOD SPECIMEN / Unknown 01/27/2025 3:35 PM CDT 01/27/2025 3:36 PM CDT Elsa Romero MD SEND OUTS Final Result Performing Organization Address [facility] Co de Phone Number [facility] [address] [place] [address], [facility], [address] [place] [address] * (ABNORMAL) THYROPEROXIDASE ANTIBODY (01/27/2025 3:35 PM CDT) THYROID PEROXIDASE ANTIBODIES >900(H) <9 IU/mL [facility] Blood BLOOD SPECIMEN / Unknown 01/27/2025 3:35 PM CDT 01/27/2025 3:36 PM CDT Rashmi PENNINGTON SEND OUTS Final Re sult [facility] [address] [place] [address], [facility] [address] [place] [address] * DHEA-SULFATE (DHEA-S) (01/27/2025 3:35 PM CDT) DHEA SULFATE 154 19 - 237 mcg/dL [facility] Blood BLOOD SPECIMEN / Unknown 01/27/2025 3:35 PM CDT 01/27/2025 3:36 PM CDT Elsa Romero MD SEND OUTS Final Result [employer] [facility] [address] [place] [address], [employer] [facility] [address] [place] [address] * HOMOCYSTEINE,TOTAL (01/07/2025 8:41 AM ANIMAL [employer]ARK CODE ENFORCEMENT OFFICER) HOMOCYSTEINE 7.2 <10.4 umol/L [employer] [place] Comment: Homocysteine is increased by functional deficiency of folate or vitamin B12. Testing for methylmalonic acid differentiates between these deficiencies. Other causes of increased homocysteine include renal failure, folate antagonists such as methotrexate and phenytoin, and exposure to nitrous oxide. Emely Cao, et al., [employer] Teacher Med. 1999;131(5):331-9. Blood BLOOD SPECIMEN / Unknown 01/07/2025 8:41 AM ANIMAL PARK CODE ENFORCEMENT OFFICER 01/07/2025 8:43 AM ANIMAL PARK CODE ENFORCEMENT OFFICER Rashmi PENNINGTON CHEMISTRY Final Re sult [employer] [facility] [address] [place] [address], [employer] [facility] [address] [place] [address] * STOCK ASSOCIATE THIN PREP PAP SCREEN IMAGED (06/14/2021 3:00 PM CDT) Case Report Gynecologic Cytology Report Case: [id number] Authorizing Provider: Yashira Fuentes PA-C Collected: 06/14/2021 1500 Ordering Location: [facility] Received: 06/18/2021 0922 First Screen: Jonny Romero Specimen: STOCK ASSOCIATE ThinPrep Vial Screening, Cervical/Vaginal 06/27/2021 3:33 PM CDT [facility] INTERPRETATION/ RESULT NEGATIVE FOR INTRAEPITHELIAL LESION OR MALIGNANCY (NIL) (none) 06/27/2021 3:33 PM CDT [facility] at 1533 CDT SPECIMEN ADEQUACY Satisfactory for evaluation No endocervical component seen 06/27/2021 3:33 PM CDT [facility] HPV REQUEST HPV and PAP 06/27/2021 3:33 PM CDT [facility] Last Pap Date 06/27/2021 3:33 PM CDT [facility] Comment:Unknown Menstrual Status 06/27/2021 3:33 PM CDT [facility] Additional Information 06/27/2021 3:33 PM CDT [facility] Comment: Interpreted at [facility] - [address] [facility] [address], [place] [address] Automated Review Successful 06/27/2021 3:33 PM CDT [facility] Comment:Specimen processed s uccessfully by automated family specialist device, ThinPrep Imaging System, [employer] ANCILLARY TESTING STOCK ASSOCIATE HPV Ordered, Please see separate report 06/27/2021 3:33 PM CDT [facility] Note The pap test is a screening technique, not a diagnostic procedure. It is used primarily to screen for squamous cancers and precursor lesions. Published studies have shown that it is subject to both false negative and false positive results. The pap test should not be used as the sole means to diagnose or exclude pre-malignant and malignant lesions. 06/27/2021 3:33 PM CDT [facility] ENTRAL LABORATORY Other (Cervical/Vagina l) 06/14/2021 3:00 PM CDT 06/18/2021 9:22 AM CDT Yashira Crystal Fuentes PA-C PATHOLOGY/CYTOLOGY Final R esult [facility] [address] [place] [address], * ANTI HCV (11/15/2020 12:00 PM ANIMAL PARK CODE ENFORCEMENT OFFICER) HEPATITIS C ANTIBODY Non-React tosha Non-React tosha 11/15/2020 9:34 PM ANIMAL PARK CODE ENFORCEMENT OFFICER [facility] TR[facility] Comment:Antibodies to HCV no t detected; does not exclude the possibility of exposure to HCV. Blood BLOOD SPECIMEN / Unknown Venipuncture / Unknown 11/15/2020 12:00 PM ANIMAL PARK CODE ENFORCEMENT OFFICER 11/15/2020 12:00 PM ANIMAL PARK CODE ENFORCEMENT OFFICER Joshua To CN SEND OUTS Final Resu lt Performing Organization Address City/[facility]/ZIP Co de Phone Number [facility] [employer] [facility] [address] [place] [address], * ANTI HIV 1/2 (11/15/2020 12:00 PM ANIMAL PARK CODE ENFORCEMENT OFFICER) HIV-1/HIV-2 ANTIBODY Non-Reacti ve Non-Reacti ve 11/15/2020 9:37 PM ANIMAL PARK CODE ENFORCEMENT OFFICER [facility] TR[facility] Comment:HIV-1 p24 and HIV-1/ HIV-2 Ab not detected. Blood BLOOD SPECIMEN / Unknown Venipuncture / Unknown 11/15/2020 12:00 PM ANIMAL PARK CODE ENFORCEMENT OFFICER 11/15/2020 12:00 PM ANIMAL PARK CODE ENFORCEMENT OFFICER Joshua To CN SEND OUTS Final Resu lt [facility] [address] [place] [address], from Last 3 Months or Most Recently Relevant to Health Maintenance Insurance [facility] Care Teams Accounts Payable Bookkeeper Relationship Specialty Start Date End Date Edu Fair[place] [address] [place] [address] PCP - General Family Practice 02/23/24 [place] [address] [place] [address] Rheumatology 03/01/25
--- OUTSIDE RECORDS SUMMARY | 2025-03-24 14:54 | XMS_ITS | Clinical Summary ---
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 30 capsule 12/08/19 25 Active ARIPiprazole (ABILIFY) 5 MG tabletIndications :Generalized anxiety disorder,Moderate recurrent major depression (H) Take 1 tablet (5 mg) by mouth daily. 90 tablet 3 12/08/19 25 Active amphetamine-dextr oamphetamine (ADDERALL) 20 MG tabletIndications :Adult ADHD Take 1 tablet (20 mg) by mouth daily. 30 tablet 12/15/19 25 Active cetirizine (ZYRTEC) 10 MG tablet Take 1 tablet by mouth 2 times daily. 12/07/19 25 Active famotidine (PEPCID) 20 MG tablet Take 20 mg by mouth 2 times daily. 12/07/19 25 Active lisdexamfetamine (VYVANSE) 70 MG capsuleIndication s:Adult ADHD Take 1 capsule (70 mg) by mouth daily. 30 capsule 03/07/20 25 025 Active amphetamine-dextr oamphetamine (ADDERALL) 20 MG tabletIndications :Adult ADHD Take 1 tablet (20 mg) by mouth daily. 30 tablet 03/07/20 25 025 Active lisdexamfetamine (VYVANSE) 70 MG capsuleIndication s:Adult ADHD Take 1 capsule (70 mg) by mouth daily. 30 capsule 03/02/20 25 Active lisdexamfetamine (VYVANSE) 70 MG capsuleIndication s:Adult ADHD Take 1 capsule (70 mg) by mouth daily. 30 capsule 02/06/20 25 025 Discontinu ed(Reorder (No AVS)) amphetamine-dextr oamphetamine (ADDERALL) 20 MG tabletIndications :Adult ADHD Take 1 tablet (20 mg) by mouth daily. 30 tablet 02/06/20 25 025 Active Problems Problem Noted Date Diagnosed Date [...] to review and confirm. Contraception 07/04/2011 08/12/2016 [facility] 06/18/2011 04/19/2024 Overview (02/08/2013): x DX V65.8 REPLACED WITH [address] [facility] (02/08/2013) Anxiety attack 05/30/2011 09/12/2017 Moderate major depression 06/01/2010 Personal history of contrace ption, presenting hazards to health 06/27/2007 08/12/2016 Encounters Date Type Department Care Team Description 03/15/2025 MyC Medical Advice [facility] [id number] [place] [phone] Hemant Patel MD 03/01/2025 MyC Medical Advice [facility] [id number] [place] [phone] Hemant Patel MD MyChart Communication 02/24/2025 3:44 PM CDT - 02/24/2025 11:59 PM CDT Hospital Encounter [facility] [address] [place] [address] [place] [phone] Hemant Patel MD 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 Discharge Disposition: Home or Self Care 02/24/2025 Travel 01/14/2025 MyC Medical Advice [facility] [address] [place] [phone] [place], [place] 01/13/2025 MyC Medical Advice [facility] [address] [place] [phone] Hemant Patel MD MyChart Communication 01/06/2025 10:00 AM NEGOTIATIONS DIRECTOR Virtual Visit [facility] [id number] [place] [phone] Hemant Patel MD Adult ADHD (Primary Dx); 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 01/06/2025 Travel from Last 3 Months Immunizations Immunization Administration Dates Next Due COVID-19 MONOVALENT 12+ (Pfizer) 06/29/2021 DTAP, 5 Pertussis Antigens (Daptacel) 08/07/1993 DTP-Hib 08/07/1993 HIB (PRP-T) 08/07/1993,09/21/1990 HPV 04/06/2008,09/25/2007,06/26/2007 HepB 01/27/2002,04/20/2001,03/18/2001 Hepatitis B, Peds (Engerix-B/Recombivax HB) 01/02,04/20/2001,03/18/2001 Historical DTP/aP 09/21/1990 Influenza (IIV3) PF 08/13/2012,09/03/2011,2009 Influenza Vaccine >6 months,quad, PF 09/29/2020 MMR (MMRII) 03/18/2001,05/08/1990 Mantoux Tuberculin Skin Test 08/01/2009,07/11/20 09 Meningococcal ACWY (Menactra ) 06/26/2007 OPV, trivalent, live 08/07/1993,09/21/1990 TD,PF 7+ (Tenivac) 06/29/2003 TDAP (Adacel,Boostrix) 03/21/2021,12/14/2015 TDAP Vaccine (Adacel) 03/20/2012 Tdap (Adult) Unspecified Formulation 12/14/2015 Tetramune (DtP/HIB) 08/07/1993 Family History Medical History Relation Comments Substance Abuse Brother 1 Bipolar Disorder Brother 2 Suicide Brother 2 Family History Negative Brother 5 4 Substance Abuse Brother 5 Depression Brother 6 Substance Abuse Brother 6 Substance Abuse Brother 7 Family History Negative Father Cardiovascular Maternal Grandfather heart attac k and stroke Family History Negative Maternal Grandmother Depression Mother Family History Negative Mother with marcela lebron -seeing neuro for full for this Family History Negative Paternal Grandfather Family History Negative Paternal Grandmother Family History Negative Sister 1 Breast Cancer No family hx of Cancer - colorectal No family hx of Relation Status Comments Brother 1 Alive Brother 2 Brother 3 Alive Brother 4 Alive Brother 5 Brother 6 Brother 7 Daughter 1 Alive Daughter 2 Alive Father [...] Sex Assigned at Female 12/03/2024 9:09 AM NEGOTIATIONS DIRECTOR Legal Sex Female 4:05 AM NEGOTIATIONS DIRECTOR Gender Identity Female 12/03/2024 9:09 AM NEGOTIATIONS DIRECTOR Sexual Orientation Straight 12/03/2024 9: 09 AM NEGOTIATIONS DIRECTOR Last Filed Vital Signs Vital Sign Reading Time Taken Comments Blood Pressure 122/82 12/08/2024 8:09 AM NEGOTIATIONS DIRECTOR Pulse 98 12/08/2024 8:09 AM NEGOTIATIONS DIRECTOR Temperature 36.7 C (98 F) 12/08/2024 8:09 AM NEGOTIATIONS DIRECTOR Respiratory Rate 16 08/03/2019 11:27 AM CDT Oxygen Saturation 99% 12/08/2024 8:09 AM NEGOTIATIONS DIRECTOR Inhaled Oxygen Concentration - - Weight 54.4 kg (120 lb) 12/08/2024 8:09 AM NEGOTIATIONS DIRECTOR Height 161.3 cm (5' 3.5) 12/08/2024 8:09 AM NEGOTIATIONS DIRECTOR Body Mass Index 20.92 12/08/2024 8:09 AM NEGOTIATIONS DIRECTOR Plan of Treatment Upcoming Encounters Date Type Department Care Team (Late st Contact Info) Description 03/31/2025 4:30 PM CDT Virtual Visit [address] [phone] Hemant Patel MD [address] [place] [phone] 07/11/2025 10:00 AM CDT Virtual Visit [address] [phone] [place] [address] [place], [place] [phone] Health Maintenance Due Date Last Done Comments ADVANCE CARE PLANNING 1989 YEARLY PREVENTIVE VISIT 09/14/2019 09/14/20 18, 08/07/2016, 06/05/2011, Additional history exists TSH W/FREE T4 REFLEX 08/03/2020 08/03/2019, 08/03/2019, 12/14/2018, Additional history exists DIABETES SCREENING 08/03/2022 08/03/2019, 0 05/28/2017, 08/07/2016, Additional history exists COVID-19 Vaccine ( season) 2024 06/29/2021, 06/08/2021 INFLUENZA VACCINE (Season Ended) 2025 09/29/2020, 09/14/2018 (Declined), 08/13/2012, Additional history exists PHQ-9 07/09/2025 01/06/2025, 02/0 03/2025, 08/03/2019, Additional history exists ANNUAL REVIEW OF HM ORDERS 12/08/2025 12/08/2024, PAP 07/09/2027 07/09/2024, 06/03, 09/14/2018, Additional history exists DTAP/TDAP/TD IMMUNIZATION (8 - Td or Tdap) 03/21/2031 03/21/2021, 12/14/2015, 12/14/2015, Additional history exists ZOSTER IMMUNIZATION (1 of 2) 2039 HEPATITIS B IMMUNIZATION Completed 002, 01/27/2002, 04/20/2001, Additional history exists MENINGITIS IMMUNIZATION Completed 06/26/2007 HPV IMMUNIZATION Completed 04/06/2008, , 06/26/2007 DEPRESSION ACTION PLAN Completed 8, 09/12/2017, 08/07/2016, Additional history exists HEPATITIS C SCREENING Completed 11/15/2020, 013 HIV SCREENING Completed 11/15/2020, 06/2015, 03/18/2013, Additional history exists Pneumococcal Vaccine: Pediatrics (0 to 5 Years) and At-Risk Patients (6 to 49 Years) Aged Out No longer eligible based on patient's age to complete this topic Procedures Procedure Name Priority Date/Time Associated Diagnosis Comments US THYROID Routine 02/24/2025 4:08 PM CDT 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 Journal of the [employer] 2017. Volume 14 (2017), Issue 5, [phone]. Narrative 02/25/2025 10:44 AM CDT EXAM: US THYROID LOCATION: [facility] DATE: 02/24/2025 INDICATION: dwayne surveillance, hypothyroidism. COMPARISON: None. TECHNIQUE: Thyroid ultrasound. FINDINGS: RIGHT lobe: 5.6 x 1.6 x 1.4 cm. Heterogenous echotexture. Isthmus: 5 mm. LEFT lobe: 5 x 1.2 x 1.3 cm. Heterogenous echotexture. NECK: No cervical lymphadenopathy. NODULES: No distinct nodule. Procedure Note Farshad Jerez MD - 02/25/2025 EXAM: US THYROID LOCATION: [facility] DATE: 02/24/2025 INDICATION: dwayne surveillance, hypothyroidism. COMPARISON: None. TECHNIQUE: Thyroid ultrasound. [...] Howard Velasquez et al. Journal of the [employer]. Volume 14 (2017), Issue 5, 265-720. us Hemant Patel MD G US ORDERABLES Final Result * PAP Smear - HIM Patient Reported (07/09/2024) PAP Smear - HIM Patient Reported Unknown 07/09/2024 Narrative Elaine Danielle - 07/09/2024 See encounter dated - 12/08/2024 Patient Reported LABORATORY Final Result * (ABNORMAL) TSH (08/03/2019 10:16 AM CDT) Pathologist [facility] TSH 0.09(L) 0.40 - 4.00 mU/L 08/04/2019 9:57 AM CDT [facility] Blood specimen (specimen) 08/03/2019 10:16 AM CDT 08/03/2019 10:18 AM CDT Jolie Mandel PROFESSOR SCULPTURE DANCE STUDIO MANAGER LAB - BLOOD ORDERAB LES Final Result [facility] [address] [place] [address] * (ABNORMAL) Comprehensive metabolic panel (08/03/2019 10:16 AM CDT) Pathologist [facility] Sodium 136 133 - 144 mmol/L 08/04/2019 9:22 AM CDT [facility] Potassium 4.0 3.4 - 5.3 mmol/L 08/04/2019 9:22 AM T [facility] Chloride 102 94 - 109 mmol/L 08/04/2019 9:22 AM T [facility] Carbon Dioxide 26 20 - 32 mmol/L 08/04/2019 9:43 AM CDT [facility] Anion Gap 8 3 - 14 mmol/L 08/04/2019 9:43 AM T [facility] Glucose 77 70 - 99 mg/dL 08/04/2019 9:43 AM T [facility] Urea Nitrogen 17 7 - 30 mg/dL 08/04/2019 9:43 AM T [facility] Creatinine 0.82 0.52 - 1.04 mg/dL 08/04/2019 9:43 AM CDT [facility] GFR Estimate >90 >60 mL/min/{1 .73_m2} 08/04/2019 9:43 AM CDT [facility] Comment: Non GFR Calc Starting 10/20/2018, serum creatinine based estimated GFR (eGFR) will be calculated using the Chronic Kidney Disease Epidemiology Collaboration (CKD-EPI) equation. GFR Estimate If Black >90 >60 mL/min/{1 .73_m2} 08/04/2019 9:43 AM CDT [facility] Comment: GFR Calc Starting 10/20/2018, serum creatinine based estimated GFR (eGFR) will be calculated using the Chronic Kidney Disease Epidemiology Collaboration (CKD-EPI) equation. Calcium 9.0 8.5 - 10.1 mg/dL 08/04/2019 9:43 AM T [facility] Bilirubin Total 1.4(H) 0.2 - 1.3 mg/dL 08/04/2019 9:50 AM [facility] Albumin 4.7 3.4 - 5.0 g/dL 08/04/2019 9:50 AM [facility] Protein Total 8.0 6.8 - 8.8 g/dL 08/04/2019 9:50 AM [facility] Alkaline Phosphatase 61 40 - 150 U/L 08/04/2019 9:50 AM [facility] ALT 23 0 - 50 U/L 08/04/2019 9:50 AM [facility] AST 20 0 - 45 U/L 08/04/2019 9:50 AM [facility] Blood specimen (specimen) 08/03/2019 10:16 AM CDT 08/03/2019 10:18 AM CDT us Jolie Mandel APRN DANCE STUDIO MANAGER LAB - BLOOD ORDERAB LES Final Result [facility] [address] [address], [facility] [phone] [facility] [address] [place] [address] * HIV Antigen Antibody Combo (07/11/2015) HIV [...] Final Res ult [facility] [address] [place] [address] from Last 3 Months or Most Recently Relevant to Health Maintenance Insurance [employer] Care Teams Sheet Metal 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
--- OUTSIDE RECORDS SUMMARY | 2025-03-24 14:54 | XMS_ITS | Encounter Summary ---
Author Organization [facility] Address [address] [place] [address] Care Team Providers Care End Frazer Name Role Phone Tequila, Jolie Foley APRN PRODUCT STRATEGY DIRECTOR Primary Care Provi leon Unavailable Tequila, Jolie Foley APRN PRODUCT STRATEGY DIRECTOR Unavailable Un available Tequila, Jolie Foley APRN PRODUCT STRATEGY DIRECTOR Unavailable Un available No Ref-Primary, Physician Primary Care Provider Hemant Patel MD Unavailable Reason for Visit * Reason Onset Date Comments Results 06/01/2011 Lab Results Encounter Details Date Type Department Care Team (Late st Contact Info) Description 06/01/2011 Telephone [facility] [id number] [place] [phone] Soniya Queen MD [address] [place] [phone] Results (Lab Results ) Social History Tobacco Use Types Packs/Day Years Used Date Smoking Tobacco: Every Day Cigarettes Smokeless Tobacco: Never Comments:trying to quit, 3-4 cigarettes per day Alcohol Use Standard Drinks/Week Comments Yes 0 (1 standard drink = 0.6 oz pur e alcohol) PHQ-2 Answer Date Recorded PHQ-2 Score 2 [...] Sex Assigned at Female 12/03/2024 9:09 AM ADVANCE SEAL DELIVERY SYSTEM MAINTAINER Legal Sex Female 4:05 AM ADVANCE SEAL DELIVERY SYSTEM MAINTAINER Gender Identity Female 12/03/2024 9:09 AM ADVANCE SEAL DELIVERY SYSTEM MAINTAINER Sexual Orientation Straight 12/03/2024 9: 09 AM ADVANCE SEAL DELIVERY SYSTEM MAINTAINER COVID-19 Exposure Response Date Recorded In the last 10 days, have yo u been in contact with someone who was confirmed or suspected to have Coronavirus/COVID-19? No / Unsure 11/15/2022 7:53 AM ADVANCE SEAL DELIVERY SYSTEM MAINTAINER documented as of this encounter Miscellaneous Notes * Telephone Encounter - Letitia Cason - 06/04/2011 10:05 AM CDT [facility] @ [phone] for pt to call back. Test results are negative but what was the test for? Irregular bleeding? Missed cycle? Date of last period? Need to be sure pt did not test too soon. Letitia Cason RN. * Telephone Encounter - Michelle Prince - 06/01/2011 12:07 PM CDT The patient would like to know if the test results are in and if they are would like a call back with the results. Please call to discuss. Thank you. documented in this encounter Plan of Treatment Upcoming Encounters Date Type Department Care Team (Late st Contact Info) Description 03/31/2025 4:30 PM CDT Virtual Visit [facility] [address] [place] [phone] [place] [address] [place] [address] 07/11/2025 10:00 AM CDT Virtual Visit [facility] [address] [place] [phone] [place] [address] [place] [address] documented as of this encounter Visit Diagnoses Not on filedocumented in this encounter Care Teams End Frazer Relationship Specialty Start Date End Date Jolie Mandel APRN PRODUCT STRATEGY DIRECTOR PCP - General Nurse Practitioner 02/27/17 10/09/23 Jolie Mandel APRN PRODUCT STRATEGY DIRECTOR PCP - Assigned PCP 08/18/16 01/05/19 No Ref-Primary, Physician PCP - General 12/08/24 Jolie Mandel APRN PRODUCT STRATEGY DIRECTOR Assigned PCP 08/18/16 05/31/22 [place] [address] [place] [address] Assigned PCP 12/26/24 documented as of this encounter
--- OUTSIDE RECORDS SUMMARY | 2025-03-24 14:54 | XMS_ITS | Encounter Summary ---
Author Organization [place] Address [facility] [place] [address] Care Team Providers Care Broker Agricultural Produce Name Role Phone No Ref-Primary, Physician Primary Care Provider Hemant Patel MD Unavailable Encounter Details Date Type Department Care Team (Latest Contact Info) Description 02/24/2025 Travel Social History Tobacco Use Types Packs/Day Years [...] Sex Assigned at Female 12/03/2024 9:09 AM BRACELET FORM COVERER Legal Sex Female 4:05 AM BRACELET FORM COVERER Gender Identity Female 12/03/2024 9:09 AM BRACELET FORM COVERER Sexual Orientation Straight 12/03/2024 9: 09 AM BRACELET FORM COVERER documented as of this encounter Plan of Treatment Upcoming Encounters Date Type Department Care Team (Late st Contact Info) Description 03/31/2025 4:30 PM CDT Virtual Visit [facility] [address] [place] [phone] [place] [address] [place], [place] [phone] 07/11/2025 10:00 AM CDT Virtual Visit [facility] [address] [place] [phone] [place] [address] [place], [place] [phone] documented as of this encounter Visit Diagnoses Not on filedocumented in this encounter Additional Health Concerns Assessment Noted Time PHQ-9 Depression Total Score: 10 025 11:25 AM BRACELET FORM COVERER documented as of this encounter Care Teams Broker Agricultural Produce Relationship Specialty Start Date End Date No Ref-Primary, Physician PCP - General 12/08/24 [place] [address] [place], [place] [phone] Assigned PCP 12/26/24 documented as of this encounter
--- OUTSIDE RECORDS SUMMARY | 2025-03-24 14:54 | XMS_ITS | Clinical Summary ---
Author Organization [facility] Address [address] [place] [address] Care Team Providers Care Nuclear Auxiliary Operator Name Role Phone Jolie Mandel APRN, YAO [...] for each transition of care or referral. [facility] Allergies No known active allergies Medications * This document contains information received from the source organization and may not represent a complete record from that organization. levonorgestrel- ethinyl estrad (ALESSE) 0.1-20 MG-MCG tablet Take 1 Tab by mouth daily. Active polyethylene glycol 3350 (GLYCOLAX) powder Take 17 g by mouth daily as needed for Other (constipation). 850 g 3 7 Active Additional Information Patient not taking.Reported on 03/12/2023 diphenhydrAMINE (BENADRYL) 25 MG tablet Take 25-50 mg by mouth at bedtime as needed for Sleep. Active traZODone (DESYREL) 50 MG tabletIndicatio ns:Insomnia Take 50 mg by mouth at bedtime as needed for Sleep. Indications: Trouble Sleeping Active gabapentin (NEURONTIN) 300 MG capsule TAKE 2 CAPS BY MOUTH 4 TIMES A DAY. 720 Cap 08/24/201 7 Active Additional Information Patient not taking.Reported on 05/21/2018 levothyroxine (SYNTHROID) 125 MCG tablet TAKE 1 TAB BY MOUTH DAILY. 90 Tab 3 7 Active Additional Information Patient not taking.Reported on 03/12/2023 amphetamine-dex troamphetamine (ADDERALL XR) 20 MG 24 hour release capsuleIndicati ons:Sore throat Take 20 mg by mouth daily. Active compounded MAGIC MOUTH WASH (MAGICMOUTHWASH ) suspensionIndic ations:Sore throat Take 5 mL by mouth two times a day. Gargle twice daily, AM and PM. Compd : Visc Lidocaine 30 ml,Maalox 30ml,Benadryl Elixir 30ml. 240 mL 8 Active Additional Information Patient not taking.Reported on 03/12/2023 VRAYLAR 3 MG CAPS Take 1 Capsule by mouth daily. 3 Active methylphenidate (RITALIN) 20 MG tablet Take 1 Tablet (20 mg) by mouth three times a day. 3 Active liothyronine (CYTOMEL) 5 MCG tablet Take 1 Tablet (5 mcg) by mouth two times a day. 3 Active TIROSINT 100 MCG Take 1 Tablet (100 mcg) by mouth daily. 3 Active Active Problems Problem Noted Date Diagnosed [...] Date Resolved Date Nausea 02/19/2017 04/02/2017 Immunizations Immunization Administration Dates Next Due TDAP (ADACEL) 03/20/2012 Social History Tobacco Use Types Packs/Day Years Used Date Smoking Tobacco: Every Day Cigarettes Smokeless Tobacco: Never Alcohol Use Standard Drinks/Week Comments Yes 0 (1 standard drink = 0.6 oz pur e alcohol) Rarely since June Comments No Sex and Gender Information Value Date Recorded Sex Assigned at Not on file Legal Sex Female 6:00 AM CDT Gender Identity Not on file Sexual Orientation Not on file Last Filed Vital Signs Vital Sign Reading Time Taken Comments Blood Pressure 106/71 03/12/2023 9:39 AM CDT Pulse 80 03/12/2023 9:39 AM CDT Temperature 36.7 C (98 F) 03/12/2023 9:39 AM CDT Respiratory Rate 16 [...] C Screening (Preventive Services) 1989 IPV (Polio) Vaccine (4 of 4 - 5-dose series) 02/05/1994 08/07/1993, 08/07/1993, 09/21/1990, Additional history exists HIV Screening (Preventive Services) 2005 Adult Preventive Visit 2007 HepB Vaccine (1) 01/21/2008 Pneumococcal Vaccine (1 of 2 - PCV) 01/21/2008 COVID-19 Vaccine (3 - season) 2024 06/29/2021, 06/08/2021 Influenza Vaccine (Season Ended) 2025 09/29/2020, 08/13/2012, 08/13/2012, Additional history exists DTaP/Tdap/Td Vaccine (8 - Tdap) 03/21/2031 03/21/2021, 12/14/2015, 12/14/2015, Additional history exists Zoster/Shingles Vaccine (1 of 2) 2039 Hib Vaccine Completed 08/07/1993, 03/1993, 09/21/1990 MCV4 Vaccine Completed 06/26/2007 HPV Vaccine Completed 04/06/2008, 02/2008, 09/25/2007, Additional history exists HepA Vaccine Aged Out No longer eligi ble based on patient's age to complete this topic Meningococcal B Vaccine Aged Out No l onger eligible based on patient's age to complete this topic Insurance [facility] Advance Directives * Full Code (Latest Code Status on File) Date Activated Date Inactivated Comments 08/27/2016 2:29 PM 10/20/2016 2:07 PM * Full Code Date Activated Date Inactivated Comments 08/16/2016 10:35 AM 08/27/2016 2:29 PM Care Teams Nuclear Auxiliary Operator Relationship Specialty Start Date End Date Jolie Mandel APRN, BAG TURNER PCP - General Nurse Practitioner 08/13/16
--- OUTSIDE RECORDS SUMMARY | 2025-03-24 14:54 | XMS_ITS | Encounter Summary ---
Author Organization [place] Address [address] [place] [address]. [place] [address] Care Team Providers Care Broadband Installer Name Role Phone Tequila, Jolie Foley APRN BREAD PAN GREASER Primary Care Provi leon Unavailable Tequila, Jolie Foley APRN BREAD PAN GREASER Unavailable Un available Tequila, Jolie Foley APRN BREAD PAN GREASER Unavailable Un available No Ref-Primary, Physician Primary Care Provider Hemant Patel MD Unavailable Reason for Visit * Reason Onset Date Comments MyChart Communication 05/11/2014 Encounter Details Date Type Department Care Team (Latest Contact Info) Description 05/11/2014 MyC Medical Advice [facility] [address] [place] [address] [phone] Ida Davila PA-C [address] [place] [address] MyChart Communication Social History Tobacco Use Types Packs/Day Years Used Date Smoking Tobacco: Every Day Cigarettes 0.5 3 Started: 08/03/2008; Last attempted to quit: 08/03/2011 Smokeless Tobacco: Never Alcohol Use Standard Drinks/Week Comments No 0 (1 standard drink = 0.6 oz pur e alcohol) Comments No Sex and Gender Information Value Date Recorded Sex Assigned at Female 12/03/2024 9:09 AM FLAT MACHINE CUTTER Legal Sex Female 4:05 AM FLAT MACHINE CUTTER Gender Identity Female 12/03/2024 9:09 AM FLAT MACHINE CUTTER Sexual Orientation Straight 12/03/2024 9: 09 AM FLAT MACHINE CUTTER documented as of this encounter Plan of Treatment Upcoming Encounters Date Type Department Care Team (Late st Contact Info) Description 03/31/2025 4:30 PM CDT Virtual Visit [facility] [address] [place] [phone] [place] [address] [place], [place] [phone] 07/11/2025 10:00 AM CDT Virtual Visit [facility] [address] [place] [phone] [place] [address] [place], [place] [phone] documented as of this encounter Visit Diagnoses Not on filedocumented in this encounter Care Teams Broadband Installer Relationship Specialty Start Date End Date Jolie Mandel APRN CNP PCP - General Nurse Practitioner 02/27/17 10/09/23 Jolie Mandel APRN BREAD PAN GREASER PCP - Assigned PCP 08/18/16 01/05/19 No Ref-Primary, Physician PCP - General 12/08/24 Jolie Mandel APRN BREAD PAN GREASER Assigned PCP 08/18/16 05/31/22 [place] [address] [place] [address] Assigned PCP 12/26/24 documented as of this encounter
--- OUTSIDE RECORDS SUMMARY | 2025-03-24 14:54 | XMS_ITS | Encounter Summary ---
Author Organization [place] Address [address] [place] [address] Care Team Providers Care Valving Machine Operator Name Role Phone Jolie Mandel APRN CHOIRMASTER Primary Care Provi leon Unavailable Tequila, Jolie Foley APRN CHOIRMASTER Unavailable Un available Tequila, Jolie Foley APRN CHOIRMASTER Unavailable Un available No Ref-Primary, Physician Primary Care Provider Hemant Patel MD Unavailable Encounter Details Date Type Department Care Team (Late st Contact Info) Description 07/28/2011 MyC Medical Advice [address] [phone] Soniya Queen MD [address] [place] [address] [id number] Social History Tobacco Use Types Packs/Day Years [...] Assigned at Female 12/03/2024 9:09 AM IN FLIGHT REFUELING MANAGER Legal Sex Female 4:05 AM IN FLIGHT REFUELING MANAGER Gender Identity Female 12/03/2024 9:09 AM IN FLIGHT REFUELING MANAGER Sexual Orientation Straight 12/03/2024 9: 09 AM IN FLIGHT REFUELING MANAGER documented as of this encounter Plan of Treatment Upcoming Encounters Date Type Department Care Team (Late st Contact Info) Description 03/31/2025 4:30 PM CDT Virtual Visit [facility] [address] [place] [phone] [place] [address] [place] [address] 07/11/2025 10:00 AM CDT Virtual Visit [facility] [address] [place] [phone] [place] [address] [place] [address] documented as of this encounter Visit Diagnoses Not on filedocumented in this encounter Care Teams Valving Machine Operator Relationship Specialty Start Date End Date Jolie Mandel APRN CNP PCP - General Nurse Practitioner 02/27/17 10/09/23 Jolie Mandel APRN CNP PCP - Assigned PCP 08/18/16 01/05/19 No Ref-Primary, Physician PCP - General 12/08/24 Jolie Mandel APRN CNP Assigned PCP 08/18/16 05/31/22 [place] [address] [place] [address] Assigned PCP 12/26/24 documented as of this encounter
--- OUTSIDE RECORDS SUMMARY | 2025-03-24 14:54 | XMS_ITS | Encounter Summary ---
Author Organization [place] Address [address] [place] [address] Care Team Providers Care Maintenance Technician 3Rd Shift Name Role Phone No Ref-Primary, Physician Primary Care Provider Hemant Patel MD Unavailable Reason for Referral * Mental Health Outpatient (Routine: Next available opening) - Pending Review Specialty Diagnoses / Procedures Referred By Contyong t Referred To Contact Neuropsychology Diagnoses [place] [address] [place] [address] Phone: tel: fax: Referral ID Status Reason Start Date Expiration Date V isits Requested Visits Authorized [id number] Pending Review 01/13/2025 01/13/2026 1 1 Question Answer Reason for Referral: Memory Change/Loss/Problem Type: Other My Clinical Question Is: memory loss Patient Scheduling Instructions: [facility] will call you to coordinate your care as prescribed by the provider. If you don t hear from a bilingual call center representative within 2 business days, please call . Comments Please be aware that coverage of these services is subject to the terms and limitations of your health insurance plan. Call member services at your health plan with any benefit or coverage questions. [facility] will call you to coordinate your care as prescribed by the provider. If you don t hear from a bilingual call center representative within 2 business days, please call . Reason for Visit * Reason Onset Date Comments MyChart Communication 01/13/2025 Encounter Details Date Type Department Care Team (Latest Contact Info) Description 01/13/2025 MyC Medical Advice [facility] [address] [place] [phone] [place] [address] [place] [address] MyChart Communication Social History Tobacco [...] Sex Assigned at Female 12/03/2024 9:09 AM RESIDENTIAL DOOR UNIT INSTALLER Legal Sex Female 4:05 AM RESIDENTIAL DOOR UNIT INSTALLER Gender Identity Female 12/03/2024 9:09 AM RESIDENTIAL DOOR UNIT INSTALLER Sexual Orientation Straight 12/03/2024 9: 09 AM RESIDENTIAL DOOR UNIT INSTALLER documented as of this encounter Miscellaneous Notes * Telephone Encounter - Eliane Ayoub RN - 01/13/2025 10:33 AM CDT See note for referral Eliane Ayoub RN documented in this encounter Plan of Treatment Upcoming Encounters Date Type Department Care Team (Late st Contact Info) Description 03/31/2025 4:30 PM CDT Virtual Visit [facility] [address] [place] [phone] [place] [address] [place] [address] 07/11/2025 10:00 AM CDT Virtual Visit [facility] [address] [place] [phone] [place] [address] [place], [place] [phone] Scheduled Referrals Name Type Priority Associated Diagnoses Order Schedule Adult Neuropsychology Running Rigger Referral Referral Routine: Next available opening Memory difficulty Expected: 01/13/2025 (Approximate), Expires: 01/13/2026 documented as of this encounter Visit Diagnoses Diagnosis Memory difficulty- Primary Memory loss documented in this encounter Additional Health Concerns Assessment Noted Time PHQ-9 Depression Total Score: 10 025 11:25 AM RESIDENTIAL DOOR UNIT INSTALLER documented as of this encounter Care Teams Maintenance Technician 3Rd Shift Relationship Specialty Start Date End Date No Ref-Primary, Physician PCP - General 12/08/24 [place] [id number] [place] [address] [id number] Assigned PCP 12/26/24 documented as of this encounter
--- OUTSIDE RECORDS SUMMARY | 2025-03-24 14:54 | XMS_ITS | Encounter Summary ---
Author Organization [place] Address [address] [place] [address]. [place] [address] Care Team Providers Care Parole Supervisor Name Role Phone No Ref-Primary, Physician Primary Care Provider Hemant Patel MD Unavailable Reason for Visit * Reason Onset Date Comments MyChart Communication 03/01/2025 Encounter Details Date Type Department Care Team (Latest Contact Info) Description 03/01/[address] [facility] [id number] [place] [phone] [place] [address] [place] [address] MyChart Communication Social History Tobacco [...] Sex Assigned at Female 12/03/2024 9:09 AM REFERENCE ARCHIVIST Legal Sex Female 4:05 AM REFERENCE ARCHIVIST Gender Identity Female 12/03/2024 9:09 AM REFERENCE ARCHIVIST Sexual Orientation Straight 12/03/2024 9: 09 AM REFERENCE ARCHIVIST documented as of this encounter Miscellaneous Notes * Telephone Encounter - Margarette Wilcox RN - 03/08/2025 12:10 PM CDT Are you okay writing accommodations letter for take off worker? MELISSA 01/06/25 Margarette ESQUIVEL, RN, PHN * Telephone Encounter - Margarette Wilcox RN - 03/01/2025 4:06 PM CDT Please see [employer]t. Pt requesting early refill of Vyvanse. Margarette ESQUIVEL, RN, PHN documented in this encounter Plan of Treatment Upcoming Encounters Date Type Department Care Team (Late st Contact Info) Description 03/31/2025 4:30 PM CDT Virtual Visit [address] [phone] [place] [address] [place] [address] 07/11/2025 10:00 AM CDT Virtual Visit [address] [phone] [place] [address] [place], [place] [phone] documented as of this encounter Visit Diagnoses Diagnosis Adult ADHD Attention deficit disorder with hyperactivity documented in this encounter Additional Health Concerns Assessment Noted Time PHQ-9 Depression Total Score: 10 01/01/ 025 11:25 AM REFERENCE ARCHIVIST documented as of this encounter Care Teams Parole Supervisor Relationship Specialty Start Date End Date No Ref-Primary, Physician PCP - General 12/08/24 [place] [address] [place] [address] Assigned PCP 12/26/24 documented as of this encounter
--- OUTSIDE RECORDS SUMMARY | 2025-03-24 14:54 | XMS_ITS | Encounter Summary ---
Author Organization [place] Address [address] [place] [address] Care Team Providers Care Plastic Surgery Specialist Name Role Phone Jolie Mandel APRN COOK PIE Primary Care Provi leon Unavailable Tequila, Jolie Foley APRN COOK PIE Unavailable Un available Tequila, Jolie Foley APRN COOK PIE Unavailable Un available No Ref-Primary, Physician Primary Care Provider Hemant Patel MD Unavailable Encounter Details Date Type Department Care Team (Late st Contact Info) Description 06/10/2011 MyC Medical Advice [address] [phone] Soniya Queen MD [address] [place] [address] [phone] Social History Tobacco Use Types Packs/Day Years [...] Sex Assigned at Female 12/03/2024 9:09 AM MACHINE TECH Legal Sex Female 4:05 AM MACHINE TECH Gender Identity Female 12/03/2024 9:09 AM MACHINE TECH Sexual Orientation Straight 12/03/2024 9: 09 AM MACHINE TECH documented as of this encounter Plan of Treatment Upcoming Encounters Date Type Department Care Team (Late st Contact Info) Description 03/31/2025 4:30 PM CDT Virtual Visit [facility] [address] [place] [phone] [place] [address] [place] [address] 07/11/2025 10:00 AM CDT Virtual Visit [facility] [address] [place] [phone] [place] [address] [place] [address] documented as of this encounter Visit Diagnoses Not on filedocumented in this encounter Care Teams Plastic Surgery Specialist Relationship Specialty Start Date End Date Jolie Mandel APRN CNP PCP - General Nurse Practitioner 02/27/17 10/09/23 Jolie Mandel APRN CNP PCP - Assigned PCP 08/18/16 01/05/19 No Ref-Primary, Physician PCP - General 12/08/24 Jolie Mandel APRN CNP Assigned PCP 08/18/16 05/31/22 [place] [address] [place] [address] Assigned PCP 12/26/24 documented as of this encounter
--- OUTSIDE RECORDS SUMMARY | 2025-03-24 14:54 | XMS_ITS | Encounter Summary ---
Author Organization [place] Address [address] [place] [address]. [place] [address] Care Team Providers Care Soccer Coach Name Role Phone No Ref-Primary, Physician Primary Care Provider Hemant Patel MD Unavailable Encounter Details Date Type Department Care Team (Late st Contact Info) Description 03/15/2025 MyC Medical Advice [facility] [phone] [place] [phone] [place] [address] [place] [address] Social History Tobacco Use Types Packs/Day Years [...] Sex Assigned at Female 12/03/2024 9:09 AM SCRAP BREAKER Legal Sex Female 4:05 AM SCRAP BREAKER Gender Identity Female 12/03/2024 9:09 AM SCRAP BREAKER Sexual Orientation Straight 12/03/2024 9: 09 AM SCRAP BREAKER documented as of this encounter Miscellaneous Notes * Telephone Encounter - Loni Moctezuma MA - 03/15/2025 2:38 PM CDT Printed and placed in Dr. Patel folder for March 31 appointment. Loni Moctezuma, Chemical Research Worker documented in this encounter Plan of Treatment Upcoming Encounters Date Type Department Care Team (Late st Contact Info) Description 03/31/2025 4:30 PM CDT Virtual Visit [facility] [phone] [place] [phone] [place] [address] [place] [address] 07/11/2025 10:00 AM CDT Virtual Visit [facility] [address] [place] [phone] [place] [address] [place] [address] documented as of this encounter Visit Diagnoses Not on filedocumented in this encounter Additional Health Concerns Assessment Noted Time PHQ-9 Depression Total Score: 10 025 11:25 AM SCRAP BREAKER documented as of this encounter Care Teams Soccer Coach Relationship Specialty Start Date End Date No Ref-Primary, Physician PCP - General 12/08/24 Hem[place] Pat[place] [id number] [place] [address] [phone] Assigned PCP 12/26/24 documented as of this encounter
--- OUTSIDE RECORDS SUMMARY | 2025-03-24 14:54 | XMS_ITS | Encounter Summary ---
Author Organization [place] Address [address] [place] [address] Care Team Providers Care Collection Card Clerk Name Role Phone Tequila, Jolie Foley APRN PROCESS OWNER Primary Care Provi leon Unavailable Tequila, Joile Foley APRN PROCESS OWNER Unavailable Un available Tequila, Jolie Foley APRN PROCESS OWNER Unavailable Un available No Ref-Primary, Physician Primary Care Provider Hemant Patel MD Unavailable Encounter Details Date Type Department Care Team (Late Contact Info) Description 08/18/2013 MyC Medical Advice [address] [phone] Reny Gipson Social History Tobacco Use Types Packs/Day Years Used Date Smoking Tobacco: Every Day Cigarettes 0.5 3 Started: 08/03/2008; Last attempted to quit: 08/03/2011 Smokeless Tobacco: Never Alcohol Use Standard Drinks/Week Comments No 0 (1 standard drink = 0.6 oz pur e alcohol) Comments No Sex and Gender Information Value Date Recorded Sex Assigned at Female 12/03/2024 9:09 AM SLIP DUMPER Legal Sex Female 4:05 AM SLIP DUMPER Gender Identity Female 12/03/2024 9:09 AM SLIP DUMPER Sexual Orientation Straight 12/03/2024 9: 09 AM SLIP DUMPER documented as of this encounter Plan of Treatment Upcoming Encounters Date Type Department Care Team (Late Contact Info) Description 03/31/2025 4:30 PM CDT Virtual Visit [facility] [address] [place] [phone] [place] [address] [place] [address] 07/11/2025 10:00 AM CDT Virtual Visit [facility] [address] [place] [phone] [place] [address] [place] [address] documented as of this encounter Visit Diagnoses Not on filedocumented in this encounter Care Teams Collection Card Clerk Relationship Specialty Start Date End Date Jolie Mandel APRN CNP PCP - General Nurse Practitioner 02/27/17 10/09/23 Jolie Mandel APRN PROCESS OWNER PCP - Assigned PCP 08/18/16 01/05/19 No Ref-Primary, Physician PCP - General 12/08/24 Jolie Mandel APRN PROCESS OWNER Assigned PCP 08/18/16 05/31/22 [place] [address] [place] [address] Assigned PCP 12/26/24 documented as of this encounter
[2025-03-24 14:55] VITALS: BP 114/76; PULSE 97; RESP 16; TEMP 36.7; O2SAT 100; BMI 23.6
--- NOTE | 2025-03-24 16:15 | ED.NAVMDI ---
HPI - Nausea/Vomiting/Diarrhea General Chief complaint: Nausea/Vomiting Stated complaint: Throwing up blood Time Seen by Provider: 03/24/25 15:54 History of Present Illness HPI Narrative: This 35-year-old female comes in stating that she head 2 episodes of vomiting that were rather black in color and she wonders if she might be bleeding internally. She does not report any pain. 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 She denies using any aspirin, bismuth salicylates, NSAIDs, and does not use alcohol. She states that she has been feeling more tired and sometimes lightheaded recently. She states that she has had normal bowel movements with normal color. There was no black coloration in her stool. She does arrive here with normal vital signs. Related Data Home Medications ?Medication ?Instructions ?Recorded ?Confirmed naltrexone 1.5 mg capsule 4.5 mg PO BID 03/26/24 03/24/25 methylphenidate HCl 20 mg tablet 20 mg PO QDAY 09/10/24 03/24/25 methylphenidate HCl 40 mg biphasic 40 mg PO QAM 09/10/24 03/24/25 50-50 capsule,extended release thyroid (pork) 90 mg tablet 90 mg PO QDAY 09/10/24 01/18/25 ([place] Thyroid) levonorgestrel (Mirena) 1 device intrauterine ONCE 10/08/24 01/18/25 aripiprazole 2 mg tablet 2 mg PO DAILY 03/24/25 03/24/25 cetirizine 10 mg tablet (Allergy 10 mg PO BID 03/24/25 03/24/25 Relief (cetirizine)) famotidine 20 mg tablet 20 mg PO BID 03/24/25 03/24/25 levothyroxine 125 mcg tablet 125 mcg PO QAM 03/24/25 03/24/25 ondansetron HCl 4 mg tablet 4 mg PO Q8H PRN nausea/vomiting 03/24/25 03/24/25 Previous Rx's ?Medication ?Instructions ?Recorded methylprednisolone 4 mg tablets in See Rx Instructions PO .COMPLEX 03/24/25 a dose pack (Medrol (Jemal)) #21 ea Allergies Allergy/AdvReac Type Severity Reaction Status Date / Time No Known Drug Allergies Allergy Verified 03/24/25 15:02 Review of Systems Status of ROS: Reports: 10 or more systems reviewed and unremarkable except as noted in History and below Narrative: Constitutional: No fevers, no weight gain or loss. Eyes: No discharge. No vision changes. HENT: No congestion, no sore throat, no ear pain. Cardiovascular: No chest pain, no palpitations. Respiratory: No shortness of breath, no wheezes, no cough. Gastrointestinal: No abdominal pain, no diarrhea. She states that she vomits a couple times a week typically but the last 2 times were dark black in color. Genitourinary: No dysuria, no hematuria. Musculoskeletal: Normal range of motion. Skin: No rashes, no pruritis. Neurological: No dizziness, weakness, sensory change, speech change. Endo/Heme/Allergies: No bruising or bleeding. No polydipsia. Pysch: no suicidality, no anxiety, no insomnia. All other systems reviewed and are negative. 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 What is your current living situation?: I presently have a place to live Problems where you live: no known problems In the past 12 months, utilities in danger of being shut off: no In past 12 months, lack of transportation kept you from medical appts, meetings, work, or getting things needed for daily living: no In the past 12 mos, have been you worried that your food would run out before you had money to buy more?: never true In the past 12 mos, the food you bought just didn't last and you didn't have money to buy more?: never true Highest level of school completed/degree received: Bachelor's degree Smoking Status: Never smoker Do you use any of these nicotine containing products: Vaping Products Second hand tobacco smoke exposure: No How often do you have a drink containing alcohol: never How often do you have six or more drinks on one occasion: Never AUDIT-C Alcohol total score: 0 Non-prescribed substance use: denies use How often does anyone, including family, friends and others, physically hurt you: never How often does anyone, including family, friends and others, insult or talk down to you: never How often does anyone, including family, friends and others, threaten you with harm: never How often does anyone, including family, friends and others, scream or curse at you: never service: No Exam Narrative: Exam Narrative: Constitutional: Well-developed, well-nourished, no acute distress. HEENT: Normocephalic, atraumatic. Neck: Normal range of motion. Nontender. Supple. Heart: Regular. No murmurs. Normal rate. Intact distal pulses. Lungs: Clear to auscultation. No chest discomfort. No wheezes, rhonchi, or rales. Abdomen: Normal bowel sounds. Nontender. No rebound tenderness. Genitalia: Deferred. Back: No midline tenderness. Normal range of motion. Extremities: Normal range of motion. No injury. Skin: Intact. No rash. Warm. No erythema or pallor. Neurologic: No altered sensation. No weakness. Alert and oriented. Psychiatric: No suicidality. No anxiety or depression. No insomnia. Nursing notes and vitals signs are reviewed. Const: Vital Signs, click to edit/add: Vital Signs - 24 hr 03/24/25 14:55 Temperature 98.0 F Pulse Rate [Pulse Oximeter] 97 Respiratory Rate 16 Blood Pressure [Ri ght Upper Arm] 114/76 Pulse Oximetry 100 Oxygen Delivery Me thod Room Air Course Vital Signs Vital signs: Initial Vital Signs Temperature 98.0 F 03/24/25 14:55 Temperature Source Temporal Artery Scan 03/24/25 14:55 Pulse Rate 97 03/24/25 14:55 Respiratory Rate 16 03/24/25 14:55 Blood Pressure 114/76 03/24/25 14:55 Blood Pressure Mean 88 03/24/25 14:55 Blood Pressure Position Sitting 03/24/25 14:55 Pulse Oximetry 100 03/24/25 14:55 Oxygen Delivery Method Room Air 03/24/25 14:55 Vital Signs Temperature 98.0 F 03/24/25 14:55 Pulse Rate 97 03/24/25 14:55 Respiratory Rate 16 03/24/25 14:55 Blood Pressure 114/76 03/24/25 14:55 Pulse Oximetry 100 03/24/25 14:55 Oxygen Delivery Method Room Air 03/24/25 14:55 Temperature 98.0 F 03/24/25 14:55 Pulse Rate 97 03/24/25 14:55 Respiratory Rate 16 03/24/25 14:55 Blood Pressure 114/76 03/24/25 14:55 Pulse Oximetry 100 03/24/25 14:55 Oxygen Delivery Method Room Air 03/24/25 14:55 Medications Administered Medications: Discontinued Medications Generic Name Dose Route Start Last Admin Trade Name Freq PRN Reason Stop Dose Admin Sodium Chloride 1,000 mls @ 1,000 mls/hr 03/24/25 16:15 03/24/25 17:16 0.9 % Sodium Chloride 1000 Ml IV 03/24/25 17:14 Infused .Q1H ROBEL Infusion MDM - Nausea/Vomiting/Diarrhea MDM Narrative Medical decision making narrative: This patient comes in with concern of emesis that was rather dark and causing her to wonder if she has a GI bleed. She states that she has had 3 endoscopies and 3 colonoscopies. She continues to feel some symptoms in her GI tract but states that these scopes have all been normal as well as other previous lab work. She is seeing a associate business analyst and another provider regarding these kinds of symptoms. Today an IV was established where she received a L of normal saline. Lab results all returned with normal findings. The patient states that she has not had any dark colored stools. I am not very suspicious of a upper GI bleed given her report and the reassurance of her lab results. In any event her hemoglobin is providing plenty of question as it returns at 15.3. I advised her to return if symptoms persist or worsen. Lab Data Labs: Lab Results 03/24/25 Range/Units 16:20 WBC 8.39 (4.50-11.00) K/uL RBC 4.96 (4.00-5.20) m/uL Hgb 15.3 (12.0-16.0) gm/dL Hct 44.6 (33.0-51.0) % MCV 90 (80-100) fL MCH 31 (26-34) pg MCHC 34 (32-36) gm/dL RDW Coeff of Gavino 12.5 (11.5-15.5) % Plt Count 264 (140-440) K/uL Neut % (Auto) 63.5 (42.0-72.0) % Lymph % (Auto) 26.5 (20-44) % [place]nairy % (Auto) 8.2 (0.0-11.0) % Eos % (Auto) 1.1 (0.0-7.0) % Baso % (Auto) 0.5 (0.0-3.0) % Neut # (Auto) 5.33 (1.7-7.0) K/uL Lymph # (Auto) 2.22 (0.90-2.90) K/uL [place] # (Auto) 0.70 (0.00-0.90) K/UL Eos # (Auto) 0.09 (0.00-0.50) K/uL Baso # (Auto) 0.04 (0.00-0.30) K/uL Abs Immat Gran (auto) 0.02 (0.00-0.30) K/uL Imm/Tot Granulo (auto) 0.2 % Sodium 138 (135-149) mmol/L Potassium 4.1 (3.6-5.1) mmol/L Chloride 100 (96-114) mmol/L Carbon Dioxide 28 (20-32) mmol/L Anion Gap 10 (7-15) mEq/L BUN 14 (5-24) mg/dL Creatinine 1.0 (0.5-1.5) mg/dL Estimated Creat Clear 64.34 Estimated GFR 75 ml/min Glucose 93 (60-115) mg/dL Calcium 9.5 (8.4-10.6) mg/dL C-Reactive Protein < 0.5 L (0.5-1.0) mg/dL Discharge Plan Discharge Clinical Impression: Vomiting Patient Disposition: Home, Self-Care Condition: Stable Additional Instructions: Take medication as prescribed. Continue other medications also as prescribed. Follow up with MD return if symptoms are persistent or worsening. Prescriptions: New methylprednisolone [Medrol (Jemal)] 4 mg tablets,dose pack See Rx Instructions .ROUTE .COMPLEX Qty: 21 0RF Rx Instructions: orally per package directions No Action methylphenidate HCl 20 mg tablet 20 mg PO QDAY naltrexone 1.5 mg capsule 4.5 mg PO BID thyroid (pork) [[place] Thyroid] 90 mg tablet 90 mg PO QDAY methylphenidate HCl 40 mg capsule,ER biphasic 50-50 40 mg PO QAM Mirena 21 mcg/24hr (up to 8 yrs) 52 mg intrauterine device 1 device intrauterine ONCE Rx Instructions: as a single dose cetirizine [Allergy Relief (cetirizine)] 10 mg tablet 10 mg PO BID ondansetron HCl 4 mg tablet 4 mg PO Q8H PRN (Reason: nausea/vomiting) famotidine 20 mg tablet 20 mg PO BID levothyroxine 125 mcg tablet 125 mcg PO QAM aripiprazole 2 mg tablet 2 mg PO DAILY Follow Up/Referrals: Edu Fairchild MD [Primary Care Provider, Family Practice] Stand Alone Forms: [employer] Info Instructions
[2025-03-24] MEDS: 0.9 % SODIUM CHLORIDE 1000 ml 1,000 ML IV (16:30)
[2025-03-24 16:58] LABS: Basophils Absolute Auto 0.04 K/uL (0.00-0.30); Basophils Percent Auto 0.5 % (0.0-3.0); Eosinophils Absolute Auto 0.09 K/uL (0.00-0.50); Eosinophils Percent Auto 1.1 % (0.0-7.0); Hematocrit 44.6 % (33.0-51.0); Hemoglobin* 15.3 gm/dL (12.0-16.0); Immature Granulocytes Abs Auto 0.02 K/uL (0.00-0.30); Immature Granulocytes Pct Auto 0.2 %; Lymphocytes Absolute Auto 2.22 K/uL (0.90-2.90); Lymphocytes Percent Auto 26.5 % (20-44); Mean Corpuscular HGB Conc 34 gm/dL (32-36); Mean Corpuscular Hemoglobin 31 pg (26-34); Mean Corpuscular Volume 90 fL (80-100); Monocytes Percent Auto 8.2 % (0.0-11.0); Neutrophils Absolute Auto 5.33 K/uL (1.7-7.0); Neutrophils Percent Auto 63.5 % (42.0-72.0); Platelet Count* 264 K/uL (140-440); RDW Coefficient of Variation % 12.5 % (11.5-15.5); Red Blood Count 4.96 m/uL (4.00-5.20); White Blood Count* 8.39 K/uL (4.50-11.00)
[2025-03-24 17:07] LABS: Chloride* 100 mmol/L (96-114); Potassium* 4.1 mmol/L (3.6-5.1); Sodium* 138 mmol/L (135-149)
[2025-03-24 17:09] LABS: Blood Urea Nitrogen* 14 mg/dL (5-24); Est. Creatinine Clearance* 64.34; Estimated Glomerular Filt Rate 75 ml/min
[2025-03-24 17:10] LABS: Anion Gap 10 mEq/L (7-15); Calcium* 9.5 mg/dL (8.4-10.6); Carbon Dioxide* 28 mmol/L (20-32); Glucose* 93 mg/dL (60-115)
[2025-03-24 17:15] LABS: Slide Review Reflex No
[2025-03-24 17:17] LABS: C Reactive Protein* < 0.5 mg/dL (0.5-1.0)
[2025-03-24 17:56] LABS: Erythrocyte SedimentationRate* 2 mm/hr (2-20)
== END 2025-03-24 18:06 | disposition home or self-care (01) ==
PROVIDERS: Emergency Provider Emergency Medicine Emergency Medical Services; PCP Family Medicine
DX: R11.10 Vomiting, unspecified (principal)
CPT/HCPCS: 36415; 80048; 85025; 85651; 86140; 99283; 99284; J7030